=== PATIENT | female | born 1990 | race African-American/Black ===

== ENCOUNTER 2017-09-03 20:56 | Emergency (ER) | payer OTHER, SELFPAY ==
[2017-09-03 21:45] LABS: Urine Blood NEGATIVE (NEG); Urine Glucose NEGATIVE (NEG); Urine Protein TRACE (NEG); Urine pH 6.5 (5.0-7.0)
[2017-09-03] MEDS ORDERED: PROMETHAZINE 25 MG/ML VIAL ONE (21:59)
[2017-09-03] MEDS ORDERED: NA CHLORIDE 0.9% 1,000 ML ONE (21:59)
[2017-09-03 22:06] LABS: Absolute Lymphocytes (CBC) 2.9 K/uL (0.7-4.9); Absolute Monocytes 0.9 K/uL (0.1-1.3); Absolute Neutrophil 5.7 K/uL (1.8-8.0); Basophils % 0.8 % (0-1.3); Hematocrit 37.4 % (36.0-45.0); Lymphocytes % 29.4 % (15.3-44.8); MCH 30.3 pg (27.0-35.0); MCV 88.5 fL (80-100); MPV 8.1 fL (7.6-11.3); RBC Red Blood Cell Count 4.23 M/uL (3.86-4.86)
[2017-09-03 22:11] LABS: Urine Bacteria <20 /HPF (<20); Urine Culture Reflex Order NOT NEEDED; Urine Mucus 2+ /HPF (NONE SEEN); Urine RBC <5 /HPF (NONE SEEN)
[2017-09-03 22:26] LABS: ALT/SGPT 31 U/L (12-78); AST/SGOT 23 U/L (15-37); Albumin 3.7 g/dL (3.4-5.0); Alkaline Phosphatase 50 U/L (45-117); BUN Blood Urea Nitrogen 6 mg/dL (7-18); Bicarbonate 26 mmol/L (21-32); Bilirubin Direct 0.2 mg/dL (0-0.2); Bilirubin Total 0.7 mg/dL (0.2-1.0); Glucose Level 79 mg/dL (74-106); Potassium 4.1 mmol/L (3.5-5.1); Protein, Total 7.5 g/dL (6.4-8.2); Sodium Level 138 mmol/L (136-145)
--- NOTE | 2017-09-03 23:34 | EDPHYS ---
Physician Documentation [facility] Name: Domonique Ramos Age: 26 yrs Sex: Female : 1990 Arrival Date: 09/03/2017 Time: 21:04 Bed 24 Private MD: ED Physician Gianni Macedo HPI: 09/03 22:00 This 26 yrs old Black Female presents to ER via Ambulatory with complaints of Nausea, pm1 Vomiting. 22:00 The patient presents to the emergency department with nausea, vomiting. Onset: The pm1 symptoms/episode began/occurred 2 day(s) ago. Possible causes: . The symptoms are aggravated by food , The symptoms are alleviated by nothing. Associated signs and symptoms: Pertinent positives: nausea, vomiting, Pertinent negatives: abdominal pain, constipation, diarrhea, dysuria, fever, vaginal discharge, Vaginal bleeding, pelvic pain. Severity of symptoms: in the emergency department the symptoms are unchanged. The patient has not experienced similar symptoms in the past. The patient has not recently seen a physician. Historical: - Allergies: 21:22 No Known Allergies; tl2 - Home Meds: 21:22 Imitrex Oral [Active]; labetalol 100 mg Oral tab 1 tab 2 times per day [Active]; tl2 - PMHx: 21:22 Migraines; Hypertension; tl2 - Immunization history:: Adult Immunizations up to date. - Social history:: Smoking status: Patient/guardian denies using tobacco. - Ebola Screening: : No symptoms or risks identified at this time. ROS: 22:00 Constitutional: Negative for fever, chills, and weight loss, Eyes: Negative for injury, pm1 pain, redness, and discharge, ENT: Negative for injury, pain, and discharge, Neck: Negative for injury, pain, and swelling, Cardiovascular: Negative for chest pain, palpitations, and edema, Respiratory: Negative for shortness of breath, cough, wheezing, and pleuritic chest pain. 22:00 Back: Negative for injury and pain. 22:00 MS/Extremity: Negative for injury and deformity, Skin: Negative for injury, rash, and discoloration. 22:00 Neuro: Negative for headache, weakness, numbness, tingling, and seizure. 22:00 Abdomen/GI: Positive for nausea and vomiting, Negative for abdominal pain, diarrhea. 22:00 : Negative for urinary symptoms, vaginal bleeding, vaginal discharge. Exam: 22:00 Constitutional: This is a well developed, well nourished patient who is awake, alert, pm1 and in no acute distress. Head/Face: Normocephalic, atraumatic. Eyes: Pupils equal round and reactive to light, extra-ocular motions intact. Lids and lashes normal. Conjunctiva and sclera are non-icteric and not injected. Cornea within normal limits. Periorbital areas with no swelling, redness, or edema. ENT: Nares patent. No nasal discharge, no septal abnormalities noted. Tympanic membranes are normal and external auditory canals are clear. Oropharynx with no redness, swelling, or masses, exudates, or evidence of obstruction, uvula midline. Mucous membranes moist. Neck: Trachea midline, no thyromegaly or masses palpated, and no cervical lymphadenopathy. Supple, full range of motion without nuchal rigidity, or vertebral point tenderness. No Meningismus. Chest/axilla: Normal chest wall appearance and motion. Nontender with no deformity. No lesions are appreciated. Cardiovascular: Regular rate and rhythm with a normal S1 and S2. No gallops, murmurs, or rubs. Normal PMI, no JVD. No pulse deficits. Respiratory: Lungs have equal breath sounds bilaterally, clear to auscultation and percussion. No rales, rhonchi or wheezes noted. No increased work of breathing, no retractions or nasal flaring. Abdomen/GI: Soft, non-tender, with normal bowel sounds. No distension or tympany. No guarding or rebound. No evidence of tenderness throughout. Back: No spinal tenderness. No costovertebral tenderness. Full range of motion. Skin: Warm, dry with normal turgor. Normal color with no rashes, no lesions, and no evidence of cellulitis. MS/ Extremity: Pulses equal, no cyanosis. Neurovascular intact. Full, normal range of motion. 22:00 Neuro: Orientation: is normal, Motor: is normal, moves all fours. Vital Signs: 21:22 BP 147 / 117; Pulse 80; Resp 18; Temp 98.7(O); Pulse Ox 100% on R/A; Weight 85.73 kg; tl2 Height 5 ft. 8 in. (172.72 cm); Pain 7/10; 22:09 BP 137 / 95; Pulse 66; Resp 18; Pulse Ox 100% ; tl3 23:27 BP 135 / 91; Pulse 80; Resp 18; Pulse Ox 98% ; tl3 21:22 Body Mass Index 28.74 (85.73 kg, 172.72 cm) tl2 MDM: 21:25 Patient medically screened. pm1 23:15 Data reviewed: vital signs. Data interpreted: Pulse oximetry: on room air is 100 %. pm1 Interpretation: normal. 23:32 Counseling: I had a detailed discussion with the patient and/or guardian regarding: the pm1 historical points, exam findings, and any diagnostic results supporting the discharge/admit diagnosis, lab results, the need for outpatient follow up, to return to the emergency department if symptoms worsen or persist or if there are any questions or concerns that arise at home. 09/03 21:32 Order name: Urine Dipstick--Ancillary (enter results); Complete Time: 22:28 [facility] 09/03 21:32 Order name: Urine --Ancillary (enter results); Complete Time: 22:28 [facility] 09/03 21:47 Order name: Basic Metabolic Panel; Complete Time: 22:28 pm1 09/03 21:47 Order name: CBC with Diff; Complete Time: 22:28 pm1 09/03 21:47 Order name: Hepatic Function; Complete Time: 22:28 pm1 09/03 21:47 Order name: Urine Microscopic Only; Complete Time: 22:28 pm1 09/03 21:47 Order name: IV Saline Lock; Complete Time: 21:53 pm1 09/03 21:47 Order name: Labs collected and sent; Complete Time: 21:53 pm1 09/03 21:47 Order name: FHT's; Complete Time: 22:08 pm1 09/03 23:16 Order name: PO challenge pm1 Administered Medications: 22:02 Drug: Phenergan 12.5 mg Route: IVP; Infused Over: 5 mins; Site: right antecubital; tl3 23:08 Follow up: Response: No adverse reaction tl3 22:03 Drug: NS 0.9% 1000 ml Route: IV; Rate: 1000 ml; Site: right antecubital; Delivery: tl3 Primary tubing; 23:08 Follow up: IV Status: Completed infusion; IV Intake: 1000ml tl3 Disposition: 07/22 02:15 Co-signature as Attending Physician, Gianni Macedo MD. pkl Disposition: 09/03/17 23:33 Discharged to Home. Impression: Vomiting of , unspecified. - Condition is Stable. - Discharge Instructions: Morning Sickness. - Prescriptions for Phenergan 25 mg Rectal Suppository - insert 1 suppository by RECTAL route every 6 hours As needed; 12 suppository. promethazine 25 mg Oral Tablet - take 1 tablet by ORAL route every 6 hours As needed; 20 tablet. - Medication Reconciliation Form, Thank You Letter form. - Follow up: Emergency Department; When: As needed; Reason: Worsening of condition. Follow up: Faizan Parisi MD; When: 2 - 3 days; Reason: Recheck today's complaints, Continuance of care, Re-evaluation by your physician. - Problem is new. - Symptoms have improved. Signatures: Dispatcher [employer] EDMS Gianni Macedo MD MD pkl Jude Rg, SEISMOGRAPH COMPUTER SEISMOGRAPH COMPUTER pm1 Maren Wellington, RN RN tl2 Bonnie Kimble RN RN tl3 Sumeet Pizarro RN RN mg2 Corrections: (The following items were deleted from the chart) 09/03 23:50 23:33 09/03/2017 23:33 Discharged to Home. Impression: Vomiting of , mg2 unspecified. Condition is Stable. Forms are Medication Reconciliation Form, Thank You Letter, Antibiotic Education, Prescription Opioid Use. Follow up: Emergency Department; When: As needed; Reason: Worsening of condition. Follow up: Faizan Parisi; When: 2 - 3 days; Reason: Recheck today's complaints, Continuance of care, Re-evaluation by your physician. Problem is new. Symptoms have improved. pm1
--- NOTE | 2017-09-03 23:34 | ER ---
Nurse's Notes [facility] Name: Domonique Ramos Age: 26 yrs Sex: Female : 1990 Arrival Date: 09/03/2017 Time: 21:04 Bed 24 Private MD: Diagnosis: Vomiting of , unspecified Presentation: 09/03 21:20 Presenting complaint: Patient states: I'm 10 weeks and I've been feeling tl2 nauseous and haven't been able to keep anything down. I also have migraines and have had a headache for 3 days that won't go away. Transition of care: patient was not received from another setting of care. Onset of symptoms was August 31, 2017. Risk Assessment: Do you want to hurt yourself or someone else? Patient reports no desire to harm self or others. Initial Sepsis Screen: Does the patient meet any 2 criteria? No. Patient's initial sepsis screen is negative. Does the patient have a suspected source of infection? No. Patient's initial sepsis screen is negative. Care prior to arrival: None. 21:20 Method Of Arrival: Ambulatory tl2 21:20 Acuity: JERI 3 tl2 Triage Assessment: 21:22 General: Appears in no apparent distress. Behavior is calm, cooperative, appropriate tl2 for age. Pain: Complains of pain in headache Pain currently is 7 out of 10 on a pain scale. Neuro: Level of Consciousness is awake, alert, obeys commands, Oriented to person, place, time, situation. Cardiovascular: Denies chest pain. Respiratory: Airway is patent Respiratory effort is even, unlabored, Respiratory pattern is regular, symmetrical. GI: Reports intolerance of fluids, intolerance of food, nausea. : No signs and/or symptoms were reported regarding the genitourinary system. Historical: - Allergies: 21:22 No Known Allergies; tl2 - Home Meds: 21:22 Imitrex Oral [Active]; labetalol 100 mg Oral tab 1 tab 2 times per day [Active]; tl2 - PMHx: 21:22 Migraines; Hypertension; tl2 - Immunization history:: Adult Immunizations up to date. - Social history:: Smoking status: Patient/guardian denies using tobacco. - Ebola Screening: : No symptoms or risks identified at this time. Screenin:22 Abuse screen: Denies threats or abuse. Denies injuries from another. Nutritional mg2 screening: No deficits noted. Tuberculosis screening: No symptoms or risk factors identified. Fall Risk None identified. Assessment: 21:22 Reassessment:. General: Appears in no apparent distress. comfortable, Behavior is calm, mg2 cooperative. Pain: Denies pain. Neuro: Level of Consciousness is awake, alert, obeys commands, Oriented to person, place, time, situation. Cardiovascular: Capillary refill < 3 seconds Patient's skin is warm and dry. Respiratory: Airway is patent Respiratory effort is even, unlabored, Respiratory pattern is regular, symmetrical. GI: Abdomen is 10 weeks Reports vomiting. : No signs and/or symptoms were reported regarding the genitourinary system. EENT: No signs and/or symptoms were reported regarding the EENT system. Derm: Skin is intact, Skin is pink, warm \T\ dry. normal. Musculoskeletal: No signs and/or symptoms reported regarding the musculoskeletal system. 22:09 Reassessment: Patient appears in no apparent distress at this time. No changes from tl3 previously documented assessment. Patient and/or family updated on plan of care and expected duration. Pain level reassessed. Patient is alert, oriented x 3, equal unlabored respirations, skin warm/dry/pink. unable to obtain FHT's, only able to hear mothers heart beat. 23:27 Reassessment: Patient appears in no apparent distress at this time. No changes from tl3 previously documented assessment. Patient and/or family updated on plan of care and expected duration. Pain level reassessed. Patient is alert, oriented x 3, equal unlabored respirations, skin warm/dry/pink. Vital Signs: 21:22 BP 147 / 117; Pulse 80; Resp 18; Temp 98.7(O); Pulse Ox 100% on R/A; Weight 85.73 kg; tl2 Height 5 ft. 8 in. (172.72 cm); Pain 7/10; 22:09 BP 137 / 95; Pulse 66; Resp 18; Pulse Ox 100% ; tl3 23:27 BP 135 / 91; Pulse 80; Resp 18; Pulse Ox 98% ; tl3 21:22 Body Mass Index 28.74 (85.73 kg, 172.72 cm) tl2 ED Course: 21:04 Patient arrived in ED. es 21:22 Triage completed. tl2 21:22 Patient has correct armband on for positive identification. Door closed. Warm blanket mg2 given. 21:22 Arm band placed on right wrist. tl2 21:25 Jude Rg NP is PHCP. pm1 21:25 Gianni Macedo MD is Attending Physician. pm1 21:31 Bonnie Kimble, CRISTAL is Primary Nurse. tl3 21:55 Inserted saline lock: 20 gauge in right antecubital area, using aseptic technique. mg2 Blood collected. 22:25 No provider procedures requiring assistance completed. bedside ultra sound used to tl3 obtain heart rate of approx. 123 beats per minute. 23:33 Faizan Parisi MD is Referral Physician. pm1 23:49 IV discontinued, intact, bleeding controlled, No redness/swelling at site. Pressure mg2 dressing applied. Administered Medications: 22:02 Drug: Phenergan 12.5 mg Route: IVP; Infused Over: 5 mins; Site: right antecubital; tl3 23:08 Follow up: Response: No adverse reaction tl3 22:03 Drug: NS 0.9% 1000 ml Route: IV; Rate: 1000 ml; Site: right antecubital; Delivery: tl3 Primary tubing; 23:08 Follow up: IV Status: Completed infusion; IV Intake: 1000ml tl3 Intake: 23:08 IV: 1000ml; Total: 1000ml. tl3 Outcome: 23:33 Discharge ordered by . pm1 23:50 Discharged to home ambulatory, with family. mg2 23:50 Condition: stable 23:50 Discharge instructions given to patient, family, Instructed on discharge instructions, follow up and referral plans. Demonstrated understanding of instructions, follow-up care, medications, Prescriptions given X 2. 23:50 Patient left the ED. mg2 Signatures: Jacklyn Mcginnis Patrick, NP HEALTH PROMOTION COORDINATOR pm1 Maren Wellington RN RN tl2 Bonnie Kimble, CRISTAL RN tl3 Sumeet Pizarro RN RN mg2
== END 2017-09-03 23:50 | disposition home or self-care (01) ==
LOC: ER 20:56
DX: O21.8 Other vomiting complicating pregnancy (principal); Z3A.10 10 weeks gestation of pregnancy
CPT/HCPCS: 36415; 80048; 80076; 81003; 81015; 81025; 85025; 96361; 96374; 99284; J2550; J7030

== ENCOUNTER 2017-12-05 16:51 | Emergency (ER) | payer SELFPAY ==
--- OUTSIDE RECORDS SUMMARY | 2017-12-05 16:53 | XMS REPORT | Summary of Care ---
:[address] [facility] Address [address] [place] [address]- Encounter HQ eRid(ARUNA) [id number] Date(s): 03/04/17 - 03/04/17 [facility] [address] [place] [address]- [phone] Discharge Disposition: Home or Self Care Attending Physician: Boyd Tellez MD Vital Signs Most recent to oldest [Reference Range]: 1 Height 152.4 cm (03/04/17 9:32 AM) Temperature Oral [96.4-99.1 DegF] 98.2 DegF (03/04/17 9:32 AM) Blood Pressure [90-140/60-90 mmHg] 125/89 mmHg (03/04/17 9:32 AM) Respiratory Rate [14-20 BRMIN] 18 BRMIN (03/04/17 9:32 AM) Peripheral Pulse Rate [60-100 bpm] 90 bpm (03/04/17 9:32 AM) Weight 86.545 kg (03/04/17 9:32 AM) Body Mass Index 37.26 m2 (03/04/17 9:32 AM) Problem List Condition Effective Dates Status Health Status Informant Hypertension(Confirmed) Resolved Migraine headache(Confirmed) Resolved Morbid obesity(Confirmed) Active Allergies, Adverse Reactions, Alerts Substance Reaction Severity Status NKDA Active Medications hydrochlorothiazide-lisinopril 25 mg-20 mg oral tablet 1 tab, PO, Daily, # 30 tab, 5 Refill(s), Pharmacy: [facility]/pharmacy #[id number] Start Date: 03/04/17 Stop Date: 03/04/17 Status: DiscontinuedTamiFLU 75 mg oral capsule 75 mg, PO, Q12H, # 10 cap, 0 Refill(s) Start Date: 03/04/17 Stop Date: 03/09/17 Status: Ordered Results No data available for this section Immunizations No data available for this section Procedures No data available for this section Social History Social History Type Response Smoking Status Never smoker; Exposure to Tobacco Smoke None; Cigarette Smoking Last 365 Days No; Reg Smoking Cessation Counseling No entered on: 03/04/17 Assessment and Plan No data available for this section
--- OUTSIDE RECORDS SUMMARY | 2017-12-05 16:53 | XMS REPORT | Summary of Care ---
:1990 Author Organization [facility] Address [address] [place] [address]- Encounter HQ Donnell_cindy(FIN) [id number] Date(s): 03/04/17 - 03/05/17 [facility] [address] [place] [address]- [phone] Vital Signs No data available for this section Problem List Condition Effective Dates Status Health Status Informant Hypertension(Confirmed) Resolved Migraine headache(Confirmed) Resolved Morbid obesity(Confirmed) Active Allergies, Adverse Reactions, Alerts Substance Reaction Severity Status NKDA Active Medications hydrochlorothiazide-lisinopril 25 mg-20 mg oral tablet 1 tab, PO, Daily, # 90 tab, 1 Refill(s), Pharmacy: [facility] Start Date: 03/04/17 Status: Ordered Results No data available for [...]
--- OUTSIDE RECORDS SUMMARY | 2017-12-05 16:53 | XMS REPORT | Continuity of Care Document ---
:1990 Author Organization Interface Problems Problem Status Onset Classification Date Comments Source Date Reported Hypertension Resolved Problem 06/30/2017 [facility] Group Migraine Resolved Problem 06/30/2017 Medical headache Group Morbid obesity Active Problem 06/30/2017 [facility] Pre-existing Active Problem 11/30/2017 [facility] complicating , first trimester Hyperemesis Active Problem 11/30/2017 [facility] gravidarum with Womens metabolic Health disturbance Supervision of Active Problem 11/30/2017 [facility] other high risk Womens pregnancies, Health first trimester Pre-existing Active Problem 11/30/2017 [facility] Health complicating , second trimester Medications Medication Details Route Status Patient Ordering Order Source Instructions Provider Date Metoclopramide HCl as Orally Active 10 mg Orally [facility] 09/27[facility] directed every six to 2018 for eight hours Womens Health Labetalol HCl 1 tablet Orally Active 100 mg Orally [facility] 09/26[facility] Twice a day 2018 for Womens Health Ondansetron 1 tablet Orally Active 4 mg Orally [facility] 09/19[facility] on the every 6 hrs 2018 for tongue and prn Womens allow to Health dissolve Doxylamine-Pyridoxine 2 tablets Orally Active 10-10 MG [facility] 09/15[facility] at bedtime Orally Once a 2018 for on an day Womens empty Health stomach SUMAtriptan 50 mg 50 mg=1 Active oral tablet tab, PO, 2018 Medical ONCE, may Group repeat dose in 2 hours if needed, # 9 tab, 1 Refill(s), Pharmacy: [facility][id number] Hydrochlorothiazide 1 tab, PO, Active 25 MG / Lisinopril 20 Daily, # 2018 Medical MG Oral Tablet 90 tab, 1 Group Refill(s), [facility] Hydrochlorothiazide 1 tab, PO, Inactive 25 MG / Lisinopril 20 Daily, # 2017 Medical MG Oral Tablet 30 tab, 5 Group Refill(s), Pharmacy: [facility] #[id number] Oseltamivir 75 MG 75 mg, PO, Active Oral Capsule Q12H, # 10 2017 Medical [Tamiflu] cap, 0 Group Refill(s) Allergies, Adverse Reactions, Alerts Substance Category Reaction Severity Reaction Status Date Comments Source type Reported Immunizations Immunization Date Given Site Status Last Updated Comments Source Results Order Results Value Reference Date Interpretation Comments Source Name Range Vital Signs Vital Sign Value Date Comments Source Respitory Rate 18 03/04/2017 [facility] Temperature Oral (F) 98.2 F 03/04/2017 [facility] Height 152.4 cm 03/04/2017 [facility] Systolic (mm Hg) 125 03/04/2017 [facility] Group Diastolic (mm Hg) 89 03/04/2017 [facility] Heart Rate 90 03/04/2017 [facility] Group BMI Calculated 37.26 03/04/2017 [facility] Weight 86.545 03/04/2017 [facility] Group Encounters Location Location Encounter Encounter Reason Attending ADM DC Status Source Details Type Number For Provider Date Date Visit Outpatient [id number] APPLEECIA 08/11 [facility] [place] Outpatient [id number] APPLEECIA 09/08 [facility] [place] Outpatient [id number] BOYD 11/11 [facility] [place] Outpatient [id number] APPLEECIA 03/04 [facility] Outpatient [id number] Boyd 03/04 03/05 Primary Tellez /2017 [facility] Phone [id number] 03/04 03/06 Primary Message /2017 [facility] [place] [facility] Phone [phone] 03/23 03/25 Primary Message /2017 [facility] [place] Procedures Procedure Code Date Perfomer Comments Source
--- OUTSIDE RECORDS SUMMARY | 2017-12-05 16:53 | XMS REPORT | Summary of Care ---
:1990 Author Organization [facility] Address [address] [place] [address]- Encounter HQ Donnell_cindy(FIN) [id number] Date(s): 03/23/17 - 03/24/17 [facility] [address] [place] [address]- [phone] Vital Signs No data available for this section Problem List Condition Effective Dates Status Health Status Informant Hypertension(Confirmed) Resolved Migraine headache(Confirmed) Resolved Morbid obesity(Confirmed) Active Allergies, Adverse Reactions, Alerts Substance Reaction Severity Status NKDA Active Medications SUMAtriptan 50 mg oral tablet 50 mg=1 tab, PO, ONCE, may repeat dose in 2 hours if needed, # 9 tab, 1 Refill(s ), Pharmacy: [facility]/pharmacy #[id number] Start Date: 03/23/17 Status: Ordered Results No data available for [...]
--- OUTSIDE RECORDS SUMMARY | 2017-12-05 16:54 | XMS REPORT ---
:1990 Author Organization [employer] Care Team Providers Name Role Phone Sophia Vaughan Provider Role Unavailable Allergies No Known Allergies Problems Problem Type Condition Code Onset Dates Condition Status Problem Pre-existing essential hypertension O10.011 Active complicating , first trimester Problem Hyperemesis gravidarum with O21.1 Active metabolic disturbance Problem Supervision of other high risk O09.891 Active pregnancies, first trimester Medications Medication Code Code Instructions Start End Date Status Dosage System Date Labetalol HCl [facility] [id number] 100 mg Orally Sep 26, Active 1 tablet Twice a day 2017 Results No Known Results Summary Purpose [employer] Submission
--- OUTSIDE RECORDS SUMMARY | 2017-12-05 16:54 | XMS REPORT ---
:1990 Author Organization [employer] Care Team Providers Name Role Phone Sophia Vaughan Provider Role Unavailable Allergies No Known Allergies Problems Problem Type Condition Code Onset Dates Condition Status Problem Hyperemesis gravidarum with O21.1 Active metabolic disturbance Problem Supervision of other high risk O09.891 Active pregnancies, first trimester Problem Pre-existing essential hypertension O10.012 Active complicating , second trimester Problem Pre-existing essential hypertension O10.011 Active complicating , first trimester Medications No Known Medications Results No Known Results Summary Purpose [employer] Submission
--- OUTSIDE RECORDS SUMMARY | 2017-12-05 16:54 | XMS REPORT ---
[...] Medications Medication Code Code Instructions Start End Status Dosage System Date Date Metoclopramide [facility] [id number] 10 mg Orally Sep 27, Active as HCl every six to 2018 directed eight hours Results No Known Results Summary Purpose [employer] Submission
--- OUTSIDE RECORDS SUMMARY | 2017-12-05 16:54 | XMS REPORT ---
:1990 Author Organization [employer] Care Team Providers Name Role Phone Sophia Vaughan Provider Role Unavailable Allergies No Known Allergies Problems No Known Problems Medications No Known Medications Results No Known Results Summary Purpose [employer] Submission
--- OUTSIDE RECORDS SUMMARY | 2017-12-05 16:54 | XMS REPORT ---
:1990 Author Organization [employer] Care Team Providers Name Role Phone Sophia Vaughan Provider Role Unavailable Allergies No Known Allergies Problems No Known Problems Medications Medication Code System Code Instructions Start End Date Status Dosage Date Doxylamine-Pyri [facility] 58486-79 10-10 MG Orally Sep 15, Active 2 tablets doxine 00-10 Once a day 2017 at bedtime on an empty stomach Results No Known Results Summary Purpose [employer] Submission
--- OUTSIDE RECORDS SUMMARY | 2017-12-05 16:54 | XMS REPORT ---
:1990 Author Organization [employer] Care Team Providers Name Role Phone Sophia Vaughan Provider Role Unavailable Allergies No Known Allergies Problems No Known Problems Medications Medication Code Code Instructions Start End Date Status Dosage System Date Ondansetron [facility] [id number] 4 mg Orally Sep 19, Active 1 tablet on every 6 hrs prn 2018 the tongue and allow to dissolve Results No Known Results Summary Purpose [employer]Works Submission
[2017-12-05] MEDS ORDERED: NA CHLORIDE 0.9% 1,000 ML ONE (18:18)
[2017-12-05 18:26] LABS: Absolute Lymphocytes (CBC) 1.9 K/uL (0.7-4.9); Absolute Monocytes 0.7 K/uL (0.1-1.3); Absolute Neutrophil 6.6 K/uL (1.8-8.0); Basophils % 0.5 % (0-1.3); Eosinophils % 2.2 % (0-4.4); Hematocrit 34.5 % (36.0-45.0); Lymphocytes % 20.2 % (15.3-44.8); MCH 30.6 pg (27.0-35.0); MPV 8.3 fL (7.6-11.3); Monocytes % 7.5 % (3.3-12.3); RBC Red Blood Cell Count 3.87 M/uL (3.86-4.86)
[2017-12-05] MEDS ORDERED: ONDANSETRON 4 MG/2 ML VIAL ONE (18:28)
[2017-12-05 18:39] LABS: BUN Blood Urea Nitrogen 5 mg/dL (7-18); Bicarbonate 25 mmol/L (21-32); Glucose Level 88 mg/dL (74-106); Potassium 3.6 mmol/L (3.5-5.1); Sodium Level 139 mmol/L (136-145)
[2017-12-05 19:00] LABS: Urine Blood NEGATIVE (NEG); Urine Glucose NEGATIVE (NEG); Urine Protein NEGATIVE (NEG); Urine Specific Gravity 1.025 (1.005-1.030)
[2017-12-05 20:33] LABS: Urine Bacteria NONE SEEN /HPF (<20); Urine RBC NONE SEEN /HPF (NONE SEEN)
[2017-12-05 20:34] LABS: Urine Culture Reflex Order NOT NEEDED
--- NOTE | 2017-12-05 21:05 | EDPHYS ---
Physician Documentation [facility] Name: Domonique Ramos Age: 27 yrs Sex: Female : 1990 Arrival Date: 12/05/2017 Time: 16:52 Bed 30 Private MD: None, None ED Physician Aayush Griffin HPI: 12/05 21:00 This 27 yrs old Black Female presents to ER via Ambulatory with complaints of Vomiting. pm1 21:00 The patient presents to the emergency department with nausea, vomiting, 4 times since pm1 the onset of symptoms. Onset: The symptoms/episode began/occurred today. Possible causes: . The symptoms are aggravated by nothing. The symptoms are alleviated by nothing. diclegis not working. Associated signs and symptoms: Pertinent negatives: abdominal pain, diarrhea, dysuria, fever. Severity of symptoms: in the emergency department the symptoms are unchanged. The patient has experienced similar episodes in the past, chronically. 21:00 Patient is 20 weeks . 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 - Social history:: Smoking status: Patient/guardian denies using tobacco. - Ebola Screening: : No symptoms or risks identified at this time. ROS: 21:00 Constitutional: Negative for fever, chills, and weight loss, Eyes: Negative for injury, pm1 pain, redness, and discharge, ENT: Negative for injury, pain, and discharge, Neck: Negative for injury, pain, and swelling, Cardiovascular: Negative for chest pain, palpitations, and edema, Respiratory: Negative for shortness of breath, cough, wheezing, and pleuritic chest pain. 21:00 Back: Negative for injury and pain, : Negative for injury, bleeding, discharge, and swelling, MS/Extremity: Negative for injury and deformity, Skin: Negative for injury, rash, and discoloration, Neuro: Negative for headache, weakness, numbness, tingling, and seizure. 21:00 Abdomen/GI: Positive for nausea and vomiting, Negative for abdominal pain, diarrhea. Exam: 21:00 Constitutional: This is a well developed, well nourished patient who is awake, alert, pm1 and in no acute distress. Head/Face: Normocephalic, atraumatic. Eyes: Pupils equal round and reactive to light, extra-ocular motions intact. Lids and lashes normal. Conjunctiva and sclera are non-icteric and not injected. Cornea within normal limits. Periorbital areas with no swelling, redness, or edema. ENT: Nares patent. No nasal discharge, no septal abnormalities noted. Tympanic membranes are normal and external auditory canals are clear. Oropharynx with no redness, swelling, or masses, exudates, or evidence of obstruction, uvula midline. Mucous membranes moist. Neck: Trachea midline, no thyromegaly or masses palpated, and no cervical lymphadenopathy. Supple, full range of motion without nuchal rigidity, or vertebral point tenderness. No Meningismus. Chest/axilla: Normal chest wall appearance and motion. Nontender with no deformity. No lesions are appreciated. Cardiovascular: Regular rate and rhythm with a normal S1 and S2. No gallops, murmurs, or rubs. Normal PMI, no JVD. No pulse deficits. Respiratory: Lungs have equal breath sounds bilaterally, clear to auscultation and percussion. No rales, rhonchi or wheezes noted. No increased work of breathing, no retractions or nasal flaring. Abdomen/GI: Soft, non-tender, with normal bowel sounds. No distension or tympany. No guarding or rebound. No evidence of tenderness throughout. Back: No spinal tenderness. No costovertebral tenderness. Full range of motion. Skin: Warm, dry with normal turgor. Normal color with no rashes, no lesions, and no evidence of cellulitis. MS/ Extremity: Pulses equal, no cyanosis. Neurovascular intact. Full, normal range of motion. 21:00 Neuro: Orientation: is normal, Motor: moves all fours. Vital Signs: 17:12 BP 136 / 90; Pulse 95; Resp 18 S; Temp 98.3(TE); Pulse Ox 100% on R/A; Weight 81.19 kg aa5 (R); Height 5 ft. 0 in. (152.40 cm) (R); Pain 8/10; 18:50 BP 115 / 80; Pulse 87; Resp 18; Pulse Ox 100% ; Pain 0/10; mg2 19:53 BP 124 / 86; Pulse 85; Resp 18; Pulse Ox 100% on R/A; Pain 0/10; mg2 21:02 BP 122 / 76; Pulse 89; Resp 18; Pulse Ox 100% on R/A; mg2 17:12 Body Mass Index 34.96 (81.19 kg, 152.40 cm) aa5 MDM: 17:58 Patient medically screened. lore 21:04 Data reviewed: vital signs. Data interpreted: Pulse oximetry: on room air is 100 %. pm1 Interpretation: normal. Counseling: I had a detailed discussion with the patient and/or guardian regarding: the historical points, exam findings, and any diagnostic results supporting the discharge/admit diagnosis, lab results, the need for outpatient follow up, to return to the emergency department if symptoms worsen or persist or if there are any questions or concerns that arise at home. 12/05 17:55 Order name: Basic Metabolic Panel pm1 12/05 17:55 Order name: CBC with Diff pm1 12/05 17:55 Order name: Urine Microscopic Only pm1 12/05 17:56 Order name: Basic Metabolic Panel; Complete Time: 19:05 EDMS 12/05 17:56 Order name: CBC with Automated Diff; Complete Time: 19:05 EDMS 12/05 17:56 Order name: Urine Microscopic Only; Complete Time: 20:38 EDMS 12/05 17:55 Order name: IV Saline Lock; Complete Time: 18:49 pm1 12/05 17:55 Order name: Labs collected and sent; Complete Time: 18:49 pm1 12/05 17:55 Order name: Urine Dipstick-Ancillary (obtain specimen); Complete Time: 18:49 pm1 12/05 18:51 Order name: Urine Dipstick--Ancillary (enter results); Complete Time: 19:05 bd 12/05 18:51 Order name: Urine --Ancillary (enter results); Complete Time: 19:05 bd Administered Medications: 18:49 Drug: NS 0.9% 1000 ml Route: IV; Rate: 1000 ml; Site: right antecubital; mg2 19:53 Follow up: Response: No adverse reaction; IV Status: Completed infusion mg2 18:50 Drug: Zofran 4 mg Route: IVP; Site: right antecubital; mg2 19:52 Follow up: Response: No adverse reaction; Marked relief of symptoms mg2 Disposition: 12/06 06:23 Co-signature as Attending Physician, Aayush Griffin MD I agree with the assessment and lore plan of care. Disposition: 12/05/17 21:04 Discharged to Home. Impression: Vomiting of , unspecified. - Condition is Stable. - Discharge Instructions: Hyperemesis Gravidarum. - Prescriptions for Zofran ODT 4 mg Oral tablet,disintegrating - place 1 tablet by TRANSLINGUAL route every 8 hours As needed; 20 tablet. - Medication Reconciliation Form, Thank You Letter form. - Follow up: Emergency Department; When: As needed; Reason: Worsening of condition. Follow up: Private Physician; When: 2 - 3 days; Reason: Recheck today's complaints, Continuance of care, Re-evaluation by your physician. Signatures: Dispatcher [employer] EDSD Aayush Griffin MD MD cha Calderon, Audri, RN RN aa5 Jude Rg NP BIOLOGY PROFESSOR pm1 Sumeet Pizarro RN RN mg2 Corrections: (The following items were deleted from the chart) 12/05 21:20 21:04 12/05/2017 21:04 Discharged to Home. Impression: Vomiting of , mg2 unspecified. Condition is Stable. Forms are Medication Reconciliation Form, Thank You Letter, Antibiotic Education, Prescription Opioid Use. Follow up: Emergency Department; When: As needed; Reason: Worsening of condition. Follow up: Private Physician; When: 2 - 3 days; Reason: Recheck today's complaints, Continuance of care, Re-evaluation by your physician. pm1
--- NOTE | 2017-12-05 21:05 | ER ---
Nurse's Notes [facility] Name: Domonique Ramos Age: 27 yrs Sex: Female : 1990 Arrival Date: 12/05/2017 Time: 16:52 Bed 30 Private MD: None, None Diagnosis: Vomiting of , unspecified Presentation: 12/05 17:08 Presenting complaint: Patient states: "I've vomited about 4 times today and it's just aa5 one of those days where I can't keep anything down". Pt reports being 20 weeks . Pt reports REYES. Transition of care: patient was not received from another setting of care. Onset of symptoms was December 05, 2017. Risk Assessment: Do you want to hurt yourself or someone else? Patient reports no desire to harm self or others. Initial Sepsis Screen: Does the patient meet any 2 criteria? No. Patient's initial sepsis screen is negative. Does the patient have a suspected source of infection? No. Patient's initial sepsis screen is negative. Care prior to arrival: None. 17:08 Method Of Arrival: Ambulatory aa5 17:08 Acuity: JERI 3 aa5 INSPECTOR PLATING: 17:12 3, Full Term 2, Premature 0, 0, Living 2, LMP 06/28/2017 aa5 Historical: - Allergies: 17:12 No Known Allergies; aa5 - Home Meds: 17:22 Imitrex Oral [Active]; labetalol 100 mg Oral tab 1 tab 2 times per day [Active]; mg2 - PMHx: 17:12 Hypertension; Migraines; aa5 - PSHx: 17:12 None; aa5 - Immunization history:: Adult Immunizations up to date. - Social history:: Smoking status: Patient/guardian denies using tobacco. - Ebola Screening: : No symptoms or risks identified at this time. Screenin:19 Abuse screen: Denies threats or abuse. Denies injuries from another. Nutritional mg2 screening: No deficits noted. Tuberculosis screening: No symptoms or risk factors identified. Fall Risk None identified. Assessment: 17:19 General: Appears in no apparent distress. comfortable, Behavior is calm, cooperative. mg2 Pain: Denies pain. Neuro: Level of Consciousness is awake, alert, obeys commands, Oriented to person, place, time, situation. Neuro: Reports lightheadedness. Cardiovascular: Capillary refill < 3 seconds Patient's skin is warm and dry. Respiratory: Airway is patent Respiratory effort is even, unlabored, Respiratory pattern is regular, symmetrical. GI: Reports vomiting, since morming. EENT: No signs and/or symptoms were reported regarding the EENT system. Derm: Skin is intact, is healthy with good turgor, Skin is pink, warm \\T\\ dry. normal. Musculoskeletal: No signs and/or symptoms reported regarding the musculoskeletal system. 18:53 Reassessment: Patient appears in no apparent distress at this time. Patient and/or mg2 family updated on plan of care and expected duration. Pain level reassessed. Patient is alert, oriented x 3, equal unlabored respirations, skin warm/dry/pink. Vital Signs: 17:12 BP 136 / 90; Pulse 95; Resp 18 S; Temp 98.3(TE); Pulse Ox 100% on R/A; Weight 81.19 kg aa5 (R); Height 5 ft. 0 in. (152.40 cm) (R); Pain 8/10; 18:50 BP 115 / 80; Pulse 87; Resp 18; Pulse Ox 100% ; Pain 0/10; mg2 19:53 BP 124 / 86; Pulse 85; Resp 18; Pulse Ox 100% on R/A; Pain 0/10; mg2 21:02 BP 122 / 76; Pulse 89; Resp 18; Pulse Ox 100% on R/A; mg2 17:12 Body Mass Index 34.96 (81.19 kg, 152.40 cm) aa5 ED Course: 16:52 Patient arrived in ED. mr 16:52 None, None is Private Physician. mr 17:08 Arm band placed on. aa5 17:11 Triage completed. aa5 17:17 Sumeet Pizarro, CRISTAL is Primary Nurse. mg2 17:19 No provider procedures requiring assistance completed. mg2 17:21 Patient has correct armband on for positive identification. Placed in gown. Call light mg2 in reach. Pulse ox on. NIBP on. 17:52 Jude Rg NP is PHCP. pm1 17:52 Aayush Griffin MD is Attending Physician. pm1 18:50 Inserted saline lock: 20 gauge in right antecubital area, using aseptic technique. mg2 Blood collected. 21:20 IV discontinued, intact, bleeding controlled, No redness/swelling at site. Pressure mg2 dressing applied. Administered Medications: 18:49 Drug: NS 0.9% 1000 ml Route: IV; Rate: 1000 ml; Site: right antecubital; mg2 19:53 Follow up: Response: No adverse reaction; IV Status: Completed infusion mg2 18:50 Drug: Zofran 4 mg Route: IVP; Site: right antecubital; mg2 19:52 Follow up: Response: No adverse reaction; Marked relief of symptoms mg2 Outcome: 21:04 Discharge ordered by MD. pm1 21:20 Discharged to home ambulatory. mg2 21:20 Condition: stable 21:20 Discharge instructions given to patient, Instructed on discharge instructions, follow up and referral plans. Demonstrated understanding of instructions, follow-up care, medications, Prescriptions given X 1. 21:20 Patient left the ED. mg2 Signatures: Deepthi Portillo Audri RN RN aa5 Jude Rg NP HOBBING MACHINE OPERATOR pm1 Sumeet Pizarro RN RN mg2
== END 2017-12-05 21:20 | disposition home or self-care (01) ==
LOC: ER 16:51
DX: O21.9 Vomiting of pregnancy, unspecified (principal); Z3A.20 20 weeks gestation of pregnancy; O16.2 Unspecified maternal hypertension, second trimester
CPT/HCPCS: 36415; 80048; 81003; 81015; 81025; 85025; 96361; 96374; 99284; J2405; J7030

== ENCOUNTER 2021-05-13 23:49 | Emergency (ER) | payer BC ==
--- OUTSIDE RECORDS SUMMARY | 2021-05-13 23:53 | XMS REPORT | Continuity of Care Document ---
:[address] [facility] t Address [address] [place] [address] Care Team Providers Name Role Phone PATRICIA Attending Clinician Unavailable VINCE, DR CÁRDENAS Attending Clinician Unavailable JAMES, Attending Clinician Unavailable FATOUMATA, DR ROD Attending Clinician Unavailable PATRICIA Admitting Clinician Unavailable VINCE, DR CÁRDENAS Admitting Clinician Unavailable DR JAMES Admitting Clinician Unavailable FATOUMATA, DR ROD Admitting Clinician Unavailable Payers Payer Name Policy Type Policy Number Effective Date Expiration Date S ource 0453 [id number] 2021 00:00:00 Problems This patient has no known problems. Allergies, Adverse Reactions, Alerts Allergy Allergy Status Severity Reaction(s) Onset Inactive Treating Comm ents Source Name Type Date Date Clinician No Known DA Active [facility] Medications This patient has no known medications. Vital Signs Vital Name Observation Time Observation Value Comments Source Height 2021-04-10 12:04:00 149.86 CM Weight 2021-04-10 12:04:00 87.99 KG Procedures Procedure Date / Time Performed Performing Clinician [facility] e DELIVERY PRODUCTS OF 2021-04-11 00:00:00 [facility] EXT Center INTRO HORMONE FE REPR 2021-04-10 00:00:00 [facility] CRISTINA[facility]ART OPEN Center Encounters Start End Encounter Admission Attending Care Care Encounter Source Date/Time Date/Time Type Type Clinicians Facility Department ID 2018-04-17 Inpatient C PATRICIA [facility] [id number] 21 be 09:30:00 [facility] 2018-04-10 Inpatient C PATRICIA [facility] RAD [id number] [place] 09:30:00 [facility] [place] 2021-01-15 2021-01-15 Outpatient [place]fa CLAR[facility] RAD [id number] [place] 09:30:00 23:59:00 [facility] [place] 2018-04-08 2018-04-11 Outpatient [place] OB [id number] [place] 20:23:00 13:44:00 [facility] [place] 2018-04-04 2018-04-06 Inpatient Monica RAMIREZ [facility] OB [id number] [place] 09:00:00 16:29:00 [facility] [place] 2018-04-03 2018-04-03 Outpatient [place]fa RAMIREZ [facility] OB [id number] [place] 09:50:00 14:47:00 [facility] [place] 2018-03-27 2018-03-27 Outpatient Alfa RAMIREZ [facility] RAD [id number] [place] 10:03:00 11:39:00 [facility] [place] 2018-03-21 2018-03-21 Outpatient [place]fa RAMIREZ [facility] OB [id number] [place] 10:46:00 16:31:00 [facility] [place] 2018-03-20 2018-03-20 Outpatient Alfa RAMIREZ [facility] OB [id number] [place] 10:10:00 12:18:00 [facility] [place] 2018-03-13 2018-03-13 Outpatient [place] [facility] [place] [id number] [place] 10:10:00 11:30:00 [facility] [place] 2018-03-06 2018-03-06 [place]patient [place] [facility] [place] [id number] [place] 09:58:00 17:30:00 [facility] [place] 2018-03-03 2018-03-[place] [id number] [place] 09:55:00 10:35:00 [facility] [place] 2018-02-28 2018-02-28 Outpatient [place] [facility] [place] [id number] [place] 10:39:00 14:59:00 [facility] [place] 2017-12-17 2017-12-17 Inpatient Alfa RAMIREZ [facility] OB [id number] [place] 08:52:00 12:12:00 [facility] Results Test Description Test Time Test Comments Results Result Comments Source ANAEROBIC CULTURE 2021-04-18 12:09:00 Test Item Value Reference Range Interpretation Comme nts Isolate 1 (test code = ISO1) Finegoldia magna BETA LACTAMASE NEGATIVE HERPES IGM *WW*2021-04-17 13:52:00 Test Item Value Reference Range Interpretation Comments HSV 1 IGM NEGATIVE SCREEN (test code = 84836239) HSV 2 IGM NEGATIVE REFERENCE RANGE : NEGATIVEThe IFA SCREEN (test procedure for m cristel IgM code = antibodies to H SV 1and HSV 2 [id number]) detects both ty pe-common and type- specificH SV antibodies. Thus, IgM react ivity to both HSV 1and HSV 2 may represent crossreactive H SV antibodiesrathe r than exposure to both HSV 1 a nd HSV 2.This test was develo ped and its analytical performancechar acteristics have been determined by [employer].It has not been cleared or appr kecia by FDA. This assay hasbeen v alidated pursuant to the CLIA reg ulations and isused for clin ical purposes.TEST P ERFORMED AT:[facility] [id number] [place] [address]M CHEMA GARCIA MD,PHD ,KIMBER RUBELLA IGM ANTIBODY WW2021-04-17 13:14:00 Test Item Value Reference Range Interpretation Comments RUBELLA ANTIBODY <20.00 AU/mL AU/mL (IGM) (test code = Interpret ation ----- [id number]) <20.00 Negative 20.00-24.99 Equivocal > or = 25.00 Posit iveTEST PERFORMED AT:[facility] [id number] [facility] [place] [address]KTHZELACIE KAUR MD WOUND/SKIN/ABS.&GRAMSTAIN [id number] 12:26:00 Test Item Value Reference Range Interpretation Comments Culture Observations NO GROWTH AFTER 3 (test code = COB1) DAYS Direct Exam (test code = RARE WHITE BLOOD DE1) CELLS SEEN Direct Exam (test code = NO ORGANISMS SEEN DE2) Isolate 1 (test code = STREP VIRIDANS ISO1) ANAEROBIC [id number] 12:24:00 Test Item Value Reference Range Interpretation Comments Culture Observations NO ANAEROBES ISOLATED (test code = COB1) AT 5 DAYS. CULTURE HELD FOR 5 DAYS WOUND/SKIN/ABS.&GRAMSTAIN [id number] 09:47:00 Test Item Value Reference Range Interpretation Comments Direct Exam (test code = RARE WHITE BLOOD DE1) CELLS SEEN Direct Exam (test code = NO ORGANISMS SEEN DE2) Isolate 1 (test code = Streptococcus ISO1) gallolyticus ssp pasteurianus benzylpenicillin (test ug/mL S code = tameka) ampicillin (test code = ug/mL S am) cefotaxime 1 (test code ug/mL S = tax) ceftriaxone1 (test code ug/mL S = ctr) levofloxacin (test code ug/mL S = lev) erythromycin (test code ug/mL S = e) clindamycin (test code = ug/mL S cc) linezolid (test code = ug/mL S lnz) vancomycin (test code = ug/mL S va) tetracycline (test code ug/mL R = tet) PARVO B-19 IgG/IgM WW2021-04-15 20:34:00 Test Item Value Reference Range Interpretation Comments Parvovirus B19 5.0 H REFERENCE RAN GE: Antibody, IgG (test <0.9INTE RPRETIVE CRITERIA: code = [id number]) <0.9 N egative 0.9 - 1.1 Equivocal >1.1 PositiveIgG per sists for years and provi nancy life-longimmuni ty. To diagnose curren t infection, considerParvovi tristan B19 DNA, PCR.TEST PERFOR MED AT:[facility] [id number] [address] GARCIA, [place] [address]DUOLAARTI GARCIA MD,PHD ,KIMBER Parvovirus B19 0.2 REFERENCE RAN GE: Antibody, IgM (test <0.9INTE RPRETIVE CRITERIA: code = 95944301) <0.9 N egative 0.9 - 1.1 Equivocal >1.1 PositiveResults from any one IgM assay shoul d not be usedas a sole d eterminant of a current or recentinfection . Because IgM tests can yield falsepositive r esults and low levels of I gM antibodymay per sist for months post inf ection, reliance sun si ngle test result could be misleading. If anacute infe ction is suspected, cons ider obtaininga new specimen and submit for both IgG and IgMtesting in t wo or more weeks. To diagn ose currentinfectio n, consider Parvovirus B19 DNA, PCR.TEST PERFORMED AT:[facility] [id number] [facility] [address]EAROCARTI GARCIA MD,PHD ,KIMBER TOXOPLASMA IGM *WW*2021-04-14 21:37:00 Test Item Value Reference Range Interpretation Comments TOXOPLASMA IGM <8.00 AU/mL AU/mL ANTIBODY (test code Interpre tation = [id number]) ----- <8.00 Negative 8.00-9.99 Equivocal >9.99 Positi veTEST PERFORMED AT:[facility] [id number] [facility] [place] [address]QFEUKLACIE KAUR MD TOXOPLASMA IGG *WW*2021-04-14 21:37:00 Test Item Value Reference Range Interpretation Comments TOXOPLASMA IGG <7.20 IU/mL IU/mL ANTIBODY (test code Interpre tation = [id number]) ------ <7.20 Negative 7. 20-8.79 Equivoc al >8.79 PositiveTEST PE RFORMED AT:[facility] [id number] [facility] [place] [address]JVSAFLACIE KAUR MD CYTOMEGALOVIRUS IGG *WW*2021-04-14 21:36:00 Test Item Value Reference Range Interpretation Comments CYTOMEGALOVIRUS 8.90 U/mL H ANTIBODY (IGG) (test U/ mL code = 14015687) Interpretat ion ----- <0.60 Negative 0.60-0.69 Equivocal > or = 0.70 Positive A positive result indicates that the patient hasanti body to CMV. It does not differentiate betweenan activ e or past infection. TEST PERFORMED AT:[facility] [id number] [facility] [place] [address]MH REGGIE KAUR MD CYTOMEGALOVIRUS IGM *WW*2021-04-14 21:36:00 Test Item Value Reference Range Interpretation Comments CYTOMEGALOVIRUS <30.00 AU/mL ANTIBODY (IGM) (test AU/mL Inter pretation code = 18111634) ----- <30.00 No Antibody Det ected 30.00-34.99 Equivocal > or = 35.00 Antibody DetectedResults from any one IgM ass ay should not be u sed as asole determina nt of a current or rece nt infection.Becau se an IgM test can lithuanian eld false positive results andlow level Ig M antibody may pe rsist for more than 1 2months post infection, reliance on a s marcelle test resultcoul d be misleading. Acu te infection is be st diagnosedby demonstrating t he conversion of I gG from negative toposi tive. If an acute infect ion is suspected, considerobtaini ng a new specimen and logan bmit for both IgG and Ig Mtesting in two or more weeks.TEST PERF ORMED AT:[facility] [id number] [facility] [place] [address]QBQVZSAIRA KAUR MD HERPES I TITER IGG *WW*2021-04-14 21:36:00 Test Item Value Reference Interpretation Comments Range HSV 1 IgG, 39.20 H HERPESELECT TYPE index Index Interpretation SPECIFIC AB ----- (test code = ------- ------- [id number]) <0.90 Negative 0.90-1.09 Equivocal >1.09 Positive This assay utilizes recomb inant type-specific a ntigensto differentiate H SV-1 from HSV-2 infections. Apo sitive result cannot distingu anna between recent andpast infection. If recent HSV infe ction is suspectedbut th e results are negative or equ ivocal, the assayshould be repeated in 4-6 weeks. The performancechar acteristics of the assay have not been establishedfor pediatric populations, im munocompromised patients,or gen screening.TEST PERFORMED AT:[facility] [id number] [facility].[place] [address]FDPFELACIE KAUR MD HERPES II TITER IGG 2021-04-14 08:48:00 Test Item Value Reference Interpretation Comments Range HSV 2 IGG 20.10 H HERPESELECT TYPE index Index Interpretation SPECIFIC AB ----- (test code = ------- ------- [id number]) <0.90 Negative 0.90-1.09 Equivocal >1.09 Positive This assay utilizes recomb inant type-specific a ntigensto differentiate H SV-1 from HSV-2 infections. Apo sitive result cannot distingu anna between recent andpast infection. If recent HSV infe ction is suspectedbut th e results are negative or equ ivocal, the assayshould be repeated in 4-6 weeks. The performancechar acteristics of the assay have not been establishedfor pediatric populations, im munocompromised patients,or gen screening.TEST PERFORMED AT:[facility] [id number] [facility].[place] [address]TNMERLACIE KAUR MD CBC (INCLUDES AUTOMATED DIFFERENTIAL)*[id number] 09:04:00 Test Item Value Reference Range Interpretation Comments WBC (test code = WBC) 9.8 10\S\3/uL 4.5-11.0 RBC (test code = RBC) 3.35 10\S\6/uL 4.30-5.70 L HGB (test code = HBG) 9.8 g/dL 12.0-15.5 L HCT (test code = HCT) 29.0 % 35.0-44.0 L MCV (test code = MCV) 86.6 fL 81.0-99.0 MCH (test code = MCH) 29.3 pg 27.0-31.0 MCHC (test code = MCHC) 33.8 g/dL 32.0-36.0 RDW (test code = RDW) 12.4 % 11.5-14.5 PLT (test code = PLT) 201 10\S\3/uL 130-400 MPV (test code = MPV) 10.9 fL 9.4-12.4 NEUTROP # (test code = NE#) 6.7 10\S\3/uL 1.6-8.0 LYMPH # (test code = LY#) 1.9 10\S\3/uL 1.1-3.5 MONOCYTE # (test code = MO#) 0.9 10\S\3/uL 0.0-1.1 EOSINOPH # (test code = EO#) 0.2 10\S\3/uL 0.0-0.7 BASOPHIL # (test code = BA#) 0.0 10\S\3/uL 0.0-0.3 IG # (test code = IG#) 0.05 10\S\3/uL 0.00-0.06 NRBC # (test code = NRBC#) 0.00 10\S\3/uL 0.00-0.01 NEUTROPH % (test code = NE%) 68.7 % 35.0-73.0 LYMPH % (test code = LY%) 19.0 % 20.0-55.0 L MONO % (test code = MO%) 9.4 % 2.5-10.0 EOSINOPH % (test code = EO%) 2.0 % 0.0-5.0 BASOPHIL % (test code = BA%) 0.4 % 0.0-2.0 IG % (test code = IG%) 0.5 % 0.0-0.8 NRBC% (test code = NRBC%) 0.0 % 0.0-0.2 MANDIFF (test code = WMDIFF) NO NO RBC MORPH (test code = NORMAL WRBCMOR) CBC (INCLUDES AUTOMATED DIFFERENTIAL)*[id number] 05:59:00 Test Item Value Reference Range Interpretation Comments WBC (test code = WBC) 17.0 10\S\3/uL 4.5-11.0 H RBC (test code = RBC) 3.54 10\S\6/uL 4.30-5.70 L HGB (test code = HBG) 10.5 g/dL 12.0-15.5 L HCT (test code = HCT) 30.6 % 35.0-44.0 L MCV (test code = MCV) 86.4 fL 81.0-99.0 MCH (test code = MCH) 29.7 pg 27.0-31.0 MCHC (test code = MCHC) 34.3 g/dL 32.0-36.0 RDW (test code = RDW) 12.5 % 11.5-14.5 PLT (test code = PLT) 188 10\S\3/uL 130-400 MPV (test code = MPV) 11.2 fL 9.4-12.4 NEUTROP # (test code = NE#) 12.7 10\S\3/uL 1.6-8.0 H LYMPH # (test code = LY#) 2.4 10\S\3/uL 1.1-3.5 MONOCYTE # (test code = MO#) 1.7 10\S\3/uL 0.0-1.1 H EOSINOPH # (test code = EO#) 0.1 10\S\3/uL 0.0-0.7 BASOPHIL # (test code = BA#) 0.1 10\S\3/uL 0.0-0.3 IG # (test code = IG#) 0.11 10\S\3/uL 0.00-0.06 H NRBC # (test code = NRBC#) 0.00 10\S\3/uL 0.00-0.01 NEUTROPH % (test code = NE%) 74.7 % 35.0-73.0 H LYMPH % (test code = LY%) 13.9 % 20.0-55.0 L MONO % (test code = MO%) 10.0 % 2.5-10.0 EOSINOPH % (test code = EO%) 0.5 % 0.0-5.0 BASOPHIL % (test code = BA%) 0.3 % 0.0-2.0 IG % (test code = IG%) 0.6 % 0.0-0.8 NRBC% (test code = NRBC%) 0.0 % 0.0-0.2 MANDIFF (test code = WMDIFF) NO NO RBC MORPH (test code = NORMAL WRBCMOR) LIVER PROFILE WW2021-04-12 02:33:00 Test Item Value Reference Range Interpretation Comments BILI TOTAL (test code 1.0 mg/dL 0.2-1.0 = 11A) BILI DIRCT (test code 0.3 mg/dL 0.0-0.3 = 12A) BILI INDIR (test code 0.7 mg/dL See_Comment [Auto mated message] = BILII) The system [id number] generated this result transmitted ref erence range: <=0.8. T he reference range was not used to interpr et this result as normal/abnormal . PROTEIN (test code = 6.0 g/dL 5.7-8.2 07D) ALBUMIN (test code = 3.4 g/dL 3.2-4.8 08D) GLOBULIN (test code = 2.6 g/dL 1.5-3.8 GLB) ALB/GLOB (test code = 1.3 1.0-2.6 AGRR) ALK PHOS (test code = 91 IU/L 46-116 35A) AST (test code = 30A) 58 IU/L See_Comment H [Auto mated message] The system [id number] generated this result transmitted ref erence range: <=33. Th e reference range was not used to interpr et this result as normal/abnormal . ALT (test code = 31A) 56 IU/L 10-49 H RUBELLA AB IGG 2021-04-12 02:33:00 Test Item Value Reference Range Interpretation Comments RUB AB IGG INTERP (test code = IMMUNE NON-IMMUNE A RBABINT) BASIC METABOLIC PANEL 2021-04-12 02:26:00 Test Item Value Reference Range Interpretation Comments GLUCOSE (test code 99 mg/dL 75-100 = 06D) SODIUM (test code 139 mmol/L 136-145 = 01A) POTASSIUM (test 3.3 mmol/L 3.6-5.1 L code = 01B) CHLORIDE (test 108 mmol/L 98-107 H code = 04A) CO2 (test code = 22 mmol/L 20-31 02A) ANION GAP (test 12.3 mmol/L code = ANG) BUN (test code = 5 mg/dL 9-23 L 05D) CREATININE (test 0.7 mg/dL 0.6-1.0 code = 03E) GFR (test code = 114 See_Comment [Automated GFR) mL/min/1.73m\S\2 message] Th e system which generated this result transmit marion reference range : >=90. The reference range was not used to interpret this result as normal/abnormal . GFR 133 See_Comment [Automated GABONESE (test mL/min/1.73m\S\2 message] The code = GFRAA) system which generated this result transmit marion reference range : >=90. The reference range was not used to interpret this result as normal/abnormal . EGFR (test code = eGFR BY EGFR) CKD-EPI CALCULATION IS NOT RECOMMENDED FOR PATIENTS UNDER 18 YEARS OF AGE. BUN/CREA (test 7 12-20 L code = BCR) CALCIUM (test code 9.3 mg/dL 8.3-10.6 = 09D) URIC ACID 2021-04-12 02:23:00 Test Item Value Reference Range Interpretation Comments URIC ACID (test code = 41A) 6.0 mg/dL 3.1-7.8 LDH-LACTIC DEHYDROGENASE WW2021-04-12 02:23:00 Test Item Value Reference Range Interpretation Comments LDH (test code = 33A) 295 IU/L 100-190 H MAGNESIUM WW2021-04-12 02:23:00 Test Item Value Reference Range Interpretation Comments MAGNESIUM (test code = 48A) 3.5 mg/dL 1.6-2.6 H FIBRINOGEN QUANTITATIVE *WW*2021-04-12 02:21:00 Test Item Value Reference Range Interpretation Comments FIBRINOGEN (test code = FIB) 509 mg/dL 260-480 H PRO TIME AND PTT *WW*2021-04-12 02:21:00 Test Item Value Reference Range Interpretation Comments PT (test code = 11.2 s 9.8-13.6 TT) INR (test code = 1.0 INR) INRH (test code = SUGGESTED INRH) THERAPEUTIC RANGE FOR INR: 2.5 - 3.5 For Patients with Prosthetic Valves or Patients with recurrent Thromboembolic Events 2.0 - 3.0 For Most Other Applications PTT (test code = 27.6 s 20.2-38.0 PTT) PTTH (test code = To monitor the PTTH) effectiveness of heparin, we offer the Anti-Xa (Heparin Assay). It can be used for either unfractionated or LMW Heparin. Order Code is ANTI-XA CBC (INCLUDES AUTOMATED DIFFERENTIAL)*[id number] 01:42:00 Test Item Value Reference Range Interpretation Comments WBC (test code = WBC) 17.1 10\S\3/uL 4.5-11.0 H RBC (test code = RBC) 3.75 10\S\6/uL 4.30-5.70 L HGB (test code = HBG) 11.0 g/dL 12.0-15.5 L HCT (test code = HCT) 32.8 % 35.0-44.0 L MCV (test code = MCV) 87.5 fL 81.0-99.0 MCH (test code = MCH) 29.3 pg 27.0-31.0 MCHC (test code = MCHC) 33.5 g/dL 32.0-36.0 RDW (test code = RDW) 12.5 % 11.5-14.5 PLT (test code = PLT) 200 10\S\3/uL 130-400 MPV (test code = MPV) 11.0 fL 9.4-12.4 NEUTROP # (test code = NE#) 13.5 10\S\3/uL 1.6-8.0 H LYMPH # (test code = LY#) 1.7 10\S\3/uL 1.1-3.5 MONOCYTE # (test code = MO#) 1.6 10\S\3/uL 0.0-1.1 H EOSINOPH # (test code = EO#) 0.1 10\S\3/uL 0.0-0.7 BASOPHIL # (test code = BA#) 0.0 10\S\3/uL 0.0-0.3 IG # (test code = IG#) 0.16 10\S\3/uL 0.00-0.06 H NRBC # (test code = NRBC#) 0.02 10\S\3/uL 0.00-0.01 H NEUTROPH % (test code = NE%) 79.3 % 35.0-73.0 H LYMPH % (test code = LY%) 10.2 % 20.0-55.0 L MONO % (test code = MO%) 9.1 % 2.5-10.0 EOSINOPH % (test code = EO%) 0.3 % 0.0-5.0 BASOPHIL % (test code = BA%) 0.2 % 0.0-2.0 IG % (test code = IG%) 0.9 % 0.0-0.8 H NRBC% (test code = NRBC%) 0.1 % 0.0-0.2 MANDIFF (test code = WMDIFF) NO NO RBC MORPH (test code = NORMAL WRBCMOR) HIV 2021-04-10 14:57:00 Test Item Value Reference Range Interpretation Comments HIV-1,2 and p24 (test code = NON-REACTIVE NON-REACTIVE CHIV) SYPHILIS SCREENING WW2021-04-10 14:42:00 Test Item Value Reference Range Interpretation Comments T PALLIDUM AB (test NON-REACTIVE NON-REACTIVE code = SYPHINT) SYPHC (test code = RPR test has been SYPHC) updated to Treponemal Immunoassay. Interpretation of results is similar FIBRINOGEN QUANTITATIVE *WW*2021-04-10 14:33:00 Test Item Value Reference Range Interpretation Comments FIBRINOGEN (test code = FIB) 518 mg/dL 260-480 H HEPATITIS B SURFACE ANTIGEN 2021-04-10 14:28:00 Test Item Value Reference Range Interpretation Comments HBSAG (test code = WHBSAG) NON-REACTIVE NON-REACTIVE BASIC METABOLIC PANEL 2021-04-10 14:11:00 Test Item Value Reference Range Interpretation Comments GLUCOSE (test code 102 mg/dL 75-100 H = 06D) SODIUM (test code 138 mmol/L 136-145 = 01A) POTASSIUM (test 4.1 mmol/L 3.6-5.1 code = 01B) CHLORIDE (test 106 mmol/L 98-107 code = 04A) CO2 (test code = 26 mmol/L 20-31 02A) ANION GAP (test 10.1 mmol/L code = ANG) BUN (test code = <5 mg/dL 9-23 L 05D) CREATININE (test 0.7 mg/dL 0.6-1.0 code = 03E) GFR (test code = 114 See_Comment [Automated GFR) mL/min/1.73m\S\2 message] Th e system which generated this result transmit marion reference range : >=90. The reference range was not used to interpret this result as normal/abnormal . GFR 133 See_Comment [Automated GABONESE (test mL/min/1.73m\S\2 message] The code = GFRAA) system which generated this result transmit marion reference range : >=90. The reference range was not used to interpret this result as normal/abnormal . EGFR (test code = eGFR BY EGFR) CKD-EPI CALCULATION IS NOT RECOMMENDED FOR PATIENTS UNDER 18 YEARS OF AGE. BUN/CREA (test 7 12-20 L code = BCR) CALCIUM (test code 9.4 mg/dL 8.3-10.6 = 09D) URINALYSIS WITH MICRO *WW*2021-04-10 14:09:00 Test Item Value Reference Range Interpretation Comments COLOR (test code = YELLOW YELLOW COLU) CLARITY (test code = SLT HAZY CLEAR A CLA) GLUCOSE UR (test code = NEGATIVE NEGATIVE UA GLUCOSE) BILI UR (test code = NEGATIVE NEGATIVE BILE) KETONES UR (test code = NEGATIVE NEGATIVE CAPO) SP GRAVITY (test code = 1.020 1.005-1.030 SPGR) PH UR (test code = PH) 6.5 4.5-8.0 PROTEIN UR (test code = 1+ NEGATIVE A PU) UROBIL UR (test code = 0.2 EU/dL 0.2-1.0 UROQ) NITRITE UR (test code = NEGATIVE NEGATIVE NITRITE) BLOOD UR (test code = NEGATIVE NEGATIVE UA BLOOD) LEUK ES UR (test code = NEGATIVE NEGATIVE LEUK) WBC UR (test code = 3 /HPF 0-5 UWBC) RBC UR (test code = 0 /HPF 0-2 URBC) EPITH UR (test code = FEW /LPF FEW UEPC) BACTERIA UR (test code FEW /HPF NONE A = UBACT) CAST UR (test code = /LPF NONE CAST) CRYSTAL UR (test code = CALCIUM OXALATE FEW / NONE A CRYU) LPF MUCUS UR (test code = / HPF NONE MUC) AMORPH UR (test code = / HPF NONE PASTOR) TRICH UR (test code = /HPF NONE UTRICH) YEAST UR (test code = /HPF NONE UY) SPERM UR (test code = /HPF NONE USPERM) SARS-CoV (RAPID ANTIGEN) WW2021-04-10 14:06:00 Test Item Value Reference Range Interpretation Comments SARS-CoV (ANTIGEN) NEGATIVE NEGATIVE (test code = COVAG) COVID AG (test This test has been code = COVAGC) marketed under the FDA Emergency Use Authorization (EUA) to meet challenges of the COVID-19 pandemic. The validation standards normally enforced by the FDA and the [employer] (CAP) are more stringent than those required for this test. Therefore, the result should be interpreted with caution and close attention to other clinical and epidemiological data CBC (INCLUDES AUTOMATED DIFFERENTIAL)*[id number] 13:54:00 Test Item Value Reference Range Interpretation Comments WBC (test code = WBC) 8.8 10\S\3/uL 4.5-11.0 RBC (test code = RBC) 3.51 10\S\6/uL 4.30-5.70 L HGB (test code = HBG) 10.3 g/dL 12.0-15.5 L HCT (test code = HCT) 30.7 % 35.0-44.0 L MCV (test code = MCV) 87.5 fL 81.0-99.0 MCH (test code = MCH) 29.3 pg 27.0-31.0 MCHC (test code = MCHC) 33.6 g/dL 32.0-36.0 RDW (test code = RDW) 12.4 % 11.5-14.5 PLT (test code = PLT) 202 10\S\3/uL 130-400 MPV (test code = MPV) 10.7 fL 9.4-12.4 NEUTROP # (test code = NE#) 6.0 10\S\3/uL 1.6-8.0 LYMPH # (test code = LY#) 1.6 10\S\3/uL 1.1-3.5 MONOCYTE # (test code = MO#) 1.0 10\S\3/uL 0.0-1.1 EOSINOPH # (test code = EO#) 0.2 10\S\3/uL 0.0-0.7 BASOPHIL # (test code = BA#) 0.0 10\S\3/uL 0.0-0.3 IG # (test code = IG#) 0.04 10\S\3/uL 0.00-0.06 NRBC # (test code = NRBC#) 0.00 10\S\3/uL 0.00-0.01 NEUTROPH % (test code = NE%) 68.0 % 35.0-73.0 LYMPH % (test code = LY%) 18.1 % 20.0-55.0 L MONO % (test code = MO%) 11.1 % 2.5-10.0 H EOSINOPH % (test code = EO%) 2.0 % 0.0-5.0 BASOPHIL % (test code = BA%) 0.3 % 0.0-2.0 IG % (test code = IG%) 0.5 % 0.0-0.8 NRBC% (test code = NRBC%) 0.0 % 0.0-0.2 MANDIFF (test code = WMDIFF) NO NO RBC MORPH (test code = NORMAL WRBCMOR) U/S >14 WEEKS*WW*2021-04-10 13:32:39 [facility] 1990 Sex: F ADDENDUM #1 Addendum: Findings were discussed by phone with Dr. Woo, the on- call physician, at 1:32 PM on 04/10/2021.Electronically signed by: Luis Alberto Majano MD 04/10/2021 1:32 PM [facility] /S >14 WEEKS*WW* 2021-01-15 11:01:07 [facility] : 1990 Sex: FExam: Obstetrical ultrasound.CLINICAL HISTORY: High risk .LOCATION: D4.FINDINGS: Real- time grayscale sonographic evaluation is performed including Doppler evaluation. No comparison studies. The cervix measures 3.7 cm in length. The fetus is in variable presentation during this exam. There is an anterior/fundal grade 1 placenta without evidence of placenta previa. No abnormalities noted of the intracranial contents or of the spine. The stomach, kidneys, and bladder are identified. There is a three-vessel umbilical cord with no abnormalities noted at the cord insertion site. There tra four-chamber heart with heart rate of 143 bpm. Amniotic fluid index is 10.4 cm. BPD: 4.5 cm,19 weeks 4 days HC: 16.1 cm, 18 weeks 6 days AC: 14.6 cm, 19 weeks 6 days FL: 2.8 cm, 18 weeks 4 days Biometric ratios are within normal limits. Estimated weight is 283 grams. This corresponds tothe 27th percentile based on ultrasound age. The maternal adnexa are not visualized due to gestational age.IMPRESSION:1. There is a single viable intrauterine gestation currently in variable presentation. Ultrasound estimated gestational age is 19 weeks 5 days . 2. weight is at the 27th percentile based on ultrasound.Electronically signed by: Everette Back MD 01/15/2021 11:01 AM SENIOR QUALITY MANAGER [id number] 08:10:00 Test Item Value Reference Range Interpretation Comments Culture Observations (test NO GROWTH (<1,000 code = COB1) CFU/ML) MAGNESIUM WW2018-04-09 02:53:00 Test Item Value Reference Range Interpretation Comments MAGNESIUM (test code = 48A) 3.2 mg/dL 1.8-2.4 H FIBRINOGEN QUANTITATIVE *WW*2018-04-08 22:11:00 Test Item Value Reference Range Interpretation Comments FIBRINOGEN (test code = FIB) 422 mg/dL 260-480 LIVER PROFILE 2018-04-08 21:40:00 Test Item Value Reference Range Interpretation Comments BILI TOTAL (test code = 11A) 0.4 mg/dL 0.2-1.0 BILI DIRCT (test code = 12A) 0.1 mg/dL 0.0-0.2 BILI INDIR (test code = BILII) 0.3 mg/dL <=0.8 PROTEIN (test code = 07D) 6.5 g/dL 6.4-8.2 ALBUMIN (test code = 08D) 2.7 g/dL 3.5-4.8 L GLOBULIN (test code = GLB) 3.8 g/dL 1.5-3.8 ALB/GLOB (test code = AGRR) 0.7 1.0-2.6 L ALK PHOS (test code = 35A) 85 IU/L 42-121 AST (test code = 30A) 41 IU/L <=42 ALT (test code = 31A) 63 IU/L <=78 PRO TIME AND PTT *WW*2018-04-08 21:37:00 Test Item Value Reference Range Interpretation Comments PT (test code = 10.7 s 9.8-13.6 TT) INR (test code = 0.9 INR) INRH (test code = SUGGESTED INRH) THERAPEUTIC RANGE FOR INR: 2.5 - 3.5 For Patients with Prosthetic Valves or Patients with recurrent Thromboembolic Events 2.0 - 3.0 For Most Other Applications PTT (test code = 25.5 s 20.2-38.0 PTT) PTTH (test code = To monitor the PTTH) effectiveness of heparin, we offer the Anti-Xa (Heparin Assay). It can be used for either unfractionated or LMW Heparin. Order Code is ANTI-XA BASIC METABOLIC PANEL *WW*2018-04-08 21:34:00 Test Item Value Reference Range Interpretation Comments GLUCOSE (test code = 06D) 78 mg/dL 75-100 SODIUM (test code = 01A) 142 mmol/L 136-145 POTASSIUM (test code = 01B) 3.7 mmol/L 3.6-5.1 CHLORIDE (test code = 04A) 109 mmol/L 98-107 H CO2 (test code = 02A) 24 mmol/L 22-32 ANION GAP (test code = ANG) 12.3 mmol/L BUN (test code = 05D) 6 mg/dL 7-18 L CREATININE (test code = 03E) 0.7 mg/dL 0.4-1.1 BUN/CREA (test code = BCR) 8 12-20 L CALCIUM (test code = 09D) 8.1 mg/dL 8.3-9.5 L URINALYSIS WITH MICRO 2018-04-08 21:30:00 Test Item Value Reference Range Interpretation Comments COLOR (test code = COLU) DK YELLOW YELLOW A CLARITY (test code = CLA) HAZY CLEAR A GLUCOSE UR (test code = UA GLUCOSE) NEGATIVE NEGATIVE BILI UR (test code = BILE) NEGATIVE NEGATIVE KETONES UR (test code = CAPO) NEGATIVE NEGATIVE SP GRAVITY (test code = SPGR) >=1.030 1.005-1.030 PH UR (test code = PH) 6.0 4.5-8.0 PROTEIN UR (test code = PU) 1+ NEGATIVE A UROBIL UR (test code = UROQ) 0.2 EU/dL 0.2-1.0 NITRITE UR (test code = NITRITE) NEGATIVE NEGATIVE BLOOD UR (test code = UA BLOOD) 2+ NEGATIVE A LEUK ES UR (test code = LEUK) TRACE NEGATIVE A WBC UR (test code = UWBC) 3 /HPF 0-5 RBC UR (test code = URBC) 7 /HPF 0-2 H EPITH UR (test code = UEPC) FEW /LPF FEW BACTERIA UR (test code = UBACT) FEW /HPF NONE A CAST UR (test code = CAST) /LPF NONE CRYSTAL UR (test code = CRYU) / LPF NONE MUCUS UR (test code = MUC) / HPF NONE AMORPH UR (test code = PASTOR) / HPF NONE TRICH UR (test code = UTRICH) /HPF NONE YEAST UR (test code = UY) /HPF NONE SPERM UR (test code = USPERM) /HPF NONE CBC (INCLUDES AUTOMATED DIFFERENTIAL)*[id number] 21:22:00 Test Item Value Reference Range Interpretation Comments WBC (test code = WBC) 8.0 10\S\3/uL 4.5-11.0 RBC (test code = RBC) 3.12 10\S\6/uL 4.30-5.70 L HGB (test code = HBG) 9.4 g/dL 12.0-15.5 L HCT (test code = HCT) 27.6 % 35.0-44.0 L MCV (test code = MCV) 88.5 fL 81.0-99.0 MCH (test code = MCH) 30.1 pg 27.0-31.0 MCHC (test code = MCHC) 34.1 g/dL 32.0-36.0 RDW (test code = RDW) 13.0 % 11.5-14.5 PLT (test code = PLT) 229 10\S\3/uL 130-400 MPV (test code = MPV) 10.0 fL 9.4-12.4 NEUTROP # (test code = NE#) 4.8 10\S\3/uL 1.6-8.0 LYMPH # (test code = LY#) 2.1 10\S\3/uL 1.1-3.5 MONOCYTE # (test code = MO#) 0.8 10\S\3/uL 0.0-1.1 EOSINOPH # (test code = EO#) 0.3 10\S\3/uL 0.0-0.7 BASOPHIL # (test code = BA#) 0.0 10\S\3/uL 0.0-0.3 IG # (test code = IG#) 0.03 10\S\3/uL 0.00-0.06 NRBC # (test code = NRBC#) 0.00 10\S\3/uL 0.00-0.01 NEUTROPH % (test code = NE%) 60.4 % 35.0-73.0 LYMPH % (test code = LY%) 25.7 % 20.0-55.0 MONO % (test code = MO%) 10.2 % 2.5-10.0 H EOSINOPH % (test code = EO%) 3.1 % 0.0-5.0 BASOPHIL % (test code = BA%) 0.2 % 0.0-2.0 IG % (test code = IG%) 0.4 % 0.0-0.8 NRBC% (test code = NRBC%) 0.0 % 0.0-0.2 MANDIFF (test code = WMDIFF) NO NO RBC MORPH (test code = NORMAL WRBCMOR) CBC (INCLUDES AUTOMATED DIFFERENTIAL)*[id number] 07:13:00 Test Item Value Reference Range Interpretation Comments WBC (test code = WBC) 10.8 10\S\3/uL 4.5-11.0 RBC (test code = RBC) 3.20 10\S\6/uL 4.30-5.70 L HGB (test code = HBG) 9.6 g/dL 12.0-15.5 L HCT (test code = HCT) 27.8 % 35.0-44.0 L MCV (test code = MCV) 86.9 fL 81.0-99.0 MCH (test code = MCH) 30.0 pg 27.0-31.0 MCHC (test code = MCHC) 34.5 g/dL 32.0-36.0 RDW (test code = RDW) 12.7 % 11.5-14.5 PLT (test code = PLT) 183 10\S\3/uL 130-400 MPV (test code = MPV) 10.9 fL 9.4-12.4 NEUTROP # (test code = NE#) 8.0 10\S\3/uL 1.6-8.0 LYMPH # (test code = LY#) 1.7 10\S\3/uL 1.1-3.5 MONOCYTE # (test code = MO#) 1.0 10\S\3/uL 0.0-1.1 EOSINOPH # (test code = EO#) 0.1 10\S\3/uL 0.0-0.7 BASOPHIL # (test code = BA#) 0.0 10\S\3/uL 0.0-0.3 IG # (test code = IG#) 0.05 10\S\3/uL 0.00-0.06 NRBC # (test code = NRBC#) 0.00 10\S\3/uL 0.00-0.01 NEUTROPH % (test code = NE%) 73.5 % 35.0-73.0 H LYMPH % (test code = LY%) 15.7 % 20.0-55.0 L MONO % (test code = MO%) 9.3 % 2.5-10.0 EOSINOPH % (test code = EO%) 0.7 % 0.0-5.0 BASOPHIL % (test code = BA%) 0.3 % 0.0-2.0 IG % (test code = IG%) 0.5 % 0.0-0.8 NRBC% (test code = NRBC%) 0.0 % 0.0-0.2 MANDIFF (test code = WMDIFF) NO NO RBC MORPH (test code = NORMAL WRBCMOR) DRUGS OF ABUSE *WW*2018-04-04 14:57:00 Test Item Value Reference Range Interpretation Comments DRUG SCRN (test code URINE DRUG SCREEN = HDOA) This is an unconfirmed screening result and should not be used for non-medical purposes CANNABINOD (test code Negative NEGATIVE = 88C) AMPHETAMINE (test Negative NEGATIVE code = 84A) BENZODIAZP (test code Negative NEGATIVE = 86A) BARBITURAT (test code POSITIVE NEGATIVE A = 85A) OPIATES (test code = Negative NEGATIVE 92B) COCAINE (test code = Negative NEGATIVE 87A) PHENCYCLID (test code Negative NEGATIVE = 66A) METHADONE (test code Negative NEGATIVE = 64A) DOAH (test code = DOAH.) *URINE DRUG SCREEN Cut-off values are as follows: Cannabinoids 50 ng/mL Cocaine 300 ng/mL Amphetamines 1000 ng/mL Phencyclidine 25 ng/mL Benzodiazepines 200 ng.mL Methadone 300 ng/mL Barbiturates 200 ng/mL Opiates 2000 ng/mL RUBELLA AB IGG WW2018-04-04 11:42:00 Test Item Value Reference Range Interpretation Comments RUB AB IGG INTERP (test code = IMMUNE NON-IMMUNE A RBABINT) HIV *WW*2018-04-04 08:46:00 Test Item Value Reference Range Interpretation Comments HIV-1,2 and p24 (test code = NON-REACTIVE NON-REACTIVE CHIV) HEPATITIS B SURFACE ANTIGEN *WW*2018-04-04 08:18:00 Test Item Value Reference Range Interpretation Comments HBSAG (test code = HBSAG) NON-REACTIVE NON-REACTIVE SYPHILIS SCREENING WW2018-04-04 08:18:00 Test Item Value Reference Range Interpretation Comments T PALLIDUM AB (test NON-REACTIVE NON-REACTIVE code = SYPHINT) SYPHC (test code = RPR test has been SYPHC) updated to Treponemal Immunoassay. Interpretation of results is similar LIVER PROFILE WW2018-04-04 02:48:00 Test Item Value Reference Range Interpretation Comments BILI TOTAL (test code = 11A) 0.6 mg/dL 0.2-1.0 BILI DIRCT (test code = 12A) 0.2 mg/dL 0.0-0.2 BILI INDIR (test code = BILII) 0.5 mg/dL <=0.8 PROTEIN (test code = 07D) 7.2 g/dL 6.4-8.2 ALBUMIN (test code = 08D) 3.0 g/dL 3.5-4.8 L GLOBULIN (test code = GLB) 4.1 g/dL 1.5-3.8 H ALB/GLOB (test code = AGRR) 0.7 1.0-2.6 L ALK PHOS (test code = 35A) 111 IU/L 42-121 AST (test code = 30A) 19 IU/L <=42 ALT (test code = 31A) 14 IU/L <=78 FIBRINOGEN QUANTITATIVE *WW*2018-04-04 02:32:00 Test Item Value Reference Range Interpretation Comments FIBRINOGEN (test code = FIB) 493 mg/dL 260-480 H BASIC METABOLIC PANEL *WW*2018-04-04 02:17:00 Test Item Value Reference Range Interpretation Comments GLUCOSE (test code = 06D) 74 mg/dL 75-100 L SODIUM (test code = 01A) 139 mmol/L 136-145 POTASSIUM (test code = 01B) 3.7 mmol/L 3.6-5.1 CHLORIDE (test code = 04A) 106 mmol/L 98-107 CO2 (test code = 02A) 23 mmol/L 22-32 ANION GAP (test code = ANG) 13.3 mmol/L BUN (test code = 05D) 8 mg/dL 7-18 CREATININE (test code = 03E) 0.7 mg/dL 0.4-1.1 BUN/CREA (test code = BCR) 12 12-20 CALCIUM (test code = 09D) 8.9 mg/dL 8.3-9.5 PRO TIME AND PTT 2018-04-04 02:14:00 Test Item Value Reference Range Interpretation Comments PT (test code = 11.2 s 9.8-13.6 TT) INR (test code = 1.0 INR) INRH (test code = SUGGESTED INRH) THERAPEUTIC RANGE FOR INR: 2.5 - 3.5 For Patients with Prosthetic Valves or Patients with recurrent Thromboembolic Events 2.0 - 3.0 For Most Other Applications PTT (test code = 26.4 s 20.2-38.0 PTT) PTTH (test code = To monitor the PTTH) effectiveness of heparin, we offer the Anti-Xa (Heparin Assay). It can be used for either unfractionated or LMW Heparin. Order Code is ANTI-XA CBC (INCLUDES AUTOMATED DIFFERENTIAL)*[id number] 01:48:00 Test Item Value Reference Range Interpretation Comments WBC (test code = WBC) 12.6 10\S\3/uL 4.5-11.0 H RBC (test code = RBC) 3.78 10\S\6/uL 4.30-5.70 L HGB (test code = HBG) 11.4 g/dL 12.0-15.5 L HCT (test code = HCT) 33.0 % 35.0-44.0 L MCV (test code = MCV) 87.3 fL 81.0-99.0 MCH (test code = MCH) 30.2 pg 27.0-31.0 MCHC (test code = MCHC) 34.5 g/dL 32.0-36.0 RDW (test code = RDW) 12.6 % 11.5-14.5 PLT (test code = PLT) 208 10\S\3/uL 130-400 MPV (test code = MPV) 10.7 fL 9.4-12.4 NEUTROP # (test code = NE#) 9.5 10\S\3/uL 1.6-8.0 H LYMPH # (test code = LY#) 2.1 10\S\3/uL 1.1-3.5 MONOCYTE # (test code = MO#) 0.8 10\S\3/uL 0.0-1.1 EOSINOPH # (test code = EO#) 0.1 10\S\3/uL 0.0-0.7 BASOPHIL # (test code = BA#) 0.0 10\S\3/uL 0.0-0.3 IG # (test code = IG#) 0.05 10\S\3/uL 0.00-0.06 NRBC # (test code = NRBC#) 0.00 10\S\3/uL 0.00-0.01 NEUTROPH % (test code = NE%) 75.4 % 35.0-73.0 H LYMPH % (test code = LY%) 16.5 % 20.0-55.0 L MONO % (test code = MO%) 6.6 % 2.5-10.0 EOSINOPH % (test code = EO%) 0.9 % 0.0-5.0 BASOPHIL % (test code = BA%) 0.2 % 0.0-2.0 IG % (test code = IG%) 0.4 % 0.0-0.8 NRBC% (test code = NRBC%) 0.0 % 0.0-0.2 MANDIFF (test code = WMDIFF) NO NO RBC MORPH (test code = NORMAL WRBCMOR) URINALYSIS WITH MICRO *WW*2018-04-03 23:52:00 Test Item Value Reference Range Interpretation Comments COLOR (test code = COLU) YELLOW YELLOW CLARITY (test code = CLA) SLT HAZY CLEAR A GLUCOSE UR (test code = UA NEGATIVE NEGATIVE GLUCOSE) BILI UR (test code = BILE) NEGATIVE NEGATIVE KETONES UR (test code = CAPO) 1+ NEGATIVE A SP GRAVITY (test code = SPGR) 1.010 1.005-1.030 PH UR (test code = PH) 6.5 4.5-8.0 PROTEIN UR (test code = PU) NEGATIVE NEGATIVE UROBIL UR (test code = UROQ) 0.2 EU/dL 0.2-1.0 NITRITE UR (test code = NITRITE) NEGATIVE NEGATIVE BLOOD UR (test code = UA BLOOD) TRACE-INTACT NEGATIVE A LEUK ES UR (test code = LEUK) NEGATIVE NEGATIVE WBC UR (test code = UWBC) 1 /HPF 0-5 RBC UR (test code = URBC) 4 /HPF 0-2 H EPITH UR (test code = UEPC) FEW /LPF FEW BACTERIA UR (test code = UBACT) FEW /HPF NONE A CAST UR (test code = CAST) /LPF NONE CRYSTAL UR (test code = CRYU) / LPF NONE MUCUS UR (test code = MUC) / HPF NONE AMORPH UR (test code = PASTOR) / HPF NONE TRICH UR (test code = UTRICH) /HPF NONE YEAST UR (test code = UY) /HPF NONE SPERM UR (test code = USPERM) /HPF NONE U/S BIO-PHYSICAL PROFILE2018-04-03 10:03:32Location of dictation: [id number] PROFILE: CLINICAL INDICATION: [id number]: Hypertensive disorderTE CHNIQUE: Dynamic scanning of the gravid uterus was performed.FINDINGS: There is a single living in cephalic presentation. Cardiacactivity was documented at 150 beats per minute and regular. The cervix isclosed measuring 3.9 cm. The placenta is anterior with no evidence for previa.Grade 2 changes are noted. Amniotic fluid index measures 10.7 cm with thesingle deepest pocket measuring 2.8 cm.Biophysical profile was performed: breathing movements: 2.Gross body movement: 2. tone: 2.Qualitative amniotic fluid volume: 2.Total score is 8.SD ratio 2.3, normalIMPRESSION:1. Single viable in cephalic presentation.2. Biophysical profile score excluding nonstress test of 8 of 8.U/S BIO-PHYSICAL PROFILE2018-03-27 10:12:02BIOPHYSICAL PROFILE: Location Code: [id number] INDICATION: Hypertensive disorderTECHNIQUE: Dynamic s edmond of the gravid uterus was performed.FINDINGS: There is a single viable in vertex presentation. Cardiacactivity was documented at 142 beats per minute and regular. The cervix isclosed measuring 3.4 cm. Amniotic fluid index measures 14.2 cm with the singledeepest pocket measuring 4.3cm.Umbilical S/D ratio measures 2.3.Biophysical profile was performed: breathing movements: 2Grossbody movement: 2Fetal tone: 2Qualitative amniotic fluid volume: 2Total score is 8/8IMPRESSION:1. Single viable in vertex presentation.2. Biophysical profile score excluding nonstress test of 8 of 8. URINE [id number] 09:30:00 Test Item Value Reference Range Interpretation Comments Culture Observations THREE OR MORE SPECIES (test code = COB1) OF BACTERIA ISOLATED. PROBABLE CONTAMINATION. Culture Observations IDENTIFICATION AND (test code = COB17) SUSCEPTIBILITY NOT INDICATED. RECOLLECTION RECOMMENDED HIV *WW*2018-03-21 20:51:00 Test Item Value Reference Range Interpretation Comments HIV-1,2 and p24 (test code = NON-REACTIVE NON-REACTIVE CHIV) SYPHILIS SCREENING WW2018-03-21 20:25:00 Test Item Value Reference Range Interpretation Comments T PALLIDUM AB (test NON-REACTIVE NON-REACTIVE code = SYPHINT) SYPHC (test code = RPR test has been SYPHC) updated to Treponemal Immunoassay. Interpretation of results is similar HEPATITIS B SURFACE ANTIGEN *WW*2018-03-21 20:24:00 Test Item Value Reference Range Interpretation Comments HBSAG (test code = HBSAG) NON-REACTIVE NON-REACTIVE PRO TIME AND PTT *WW*2018-03-21 13:00:00 Test Item Value Reference Range Interpretation Comments PT (test code = 11.1 s 9.8-13.6 TT) INR (test code = 1.0 INR) INRH (test code = SUGGESTED INRH) THERAPEUTIC RANGE FOR INR: 2.5 - 3.5 For Patients with Prosthetic Valves or Patients with recurrent Thromboembolic Events 2.0 - 3.0 For Most Other Applications PTT (test code = 26.4 s 20.2-38.0 PTT) PTTH (test code = To monitor the PTTH) effectiveness of heparin, we offer the Anti-Xa (Heparin Assay). It can be used for either unfractionated or LMW Heparin. Order Code is ANTI-XA FIBRINOGEN QUANTITATIVE *WW*2018-03-21 13:00:00 Test Item Value Reference Range Interpretation Comments FIBRINOGEN (test code = FIB) 552 mg/dL 260-480 H LDH-LACTIC DEHYDROGENASE 2018-03-21 12:18:00 Test Item Value Reference Range Interpretation Comments LDH (test code = 33A) 152 IU/L 100-190 LIVER PROFILE 2018-03-21 12:17:00 Test Item Value Reference Range Interpretation Comments BILI TOTAL (test code = 11A) 0.4 mg/dL 0.2-1.0 BILI DIRCT (test code = 12A) 0.1 mg/dL 0.0-0.2 BILI INDIR (test code = BILII) 0.3 mg/dL <=0.8 PROTEIN (test code = 07D) 6.7 g/dL 6.4-8.2 ALBUMIN (test code = 08D) 2.6 g/dL 3.5-4.8 L GLOBULIN (test code = GLB) 4.1 g/dL 1.5-3.8 H ALB/GLOB (test code = AGRR) 0.6 1.0-2.6 L ALK PHOS (test code = 35A) 100 IU/L 42-121 AST (test code = 30A) 16 IU/L <=42 ALT (test code = 31A) 14 IU/L <=78 URIC ACID *WW*2018-03-21 12:12:00 Test Item Value Reference Range Interpretation Comments URIC ACID (test code = 41A) 5.4 mg/dL 2.6-6.0 COMPREHENSIVE METABOLIC BRAGG *WW*2018-03-21 12:12:00 Test Item Value Reference Range Interpretation Comments GLUCOSE (test code = 06D) 80 mg/dL 75-100 SODIUM (test code = 01A) 138 mmol/L 136-145 POTASSIUM (test code = 01B) 4.1 mmol/L 3.6-5.1 CHLORIDE (test code = 04A) 107 mmol/L 98-107 CO2 (test code = 02A) 24 mmol/L 22-32 ANION GAP (test code = ANG) 11.4 mmol/L BUN (test code = 05D) 7 mg/dL 7-18 CREATININE (test code = 03E) 0.7 mg/dL 0.4-1.1 BUN/CREA (test code = BCR) 10 12-20 L CALCIUM (test code = 09D) 8.9 mg/dL 8.3-9.5 BILI TOTAL (test code = 11A) 0.4 mg/dL 0.2-1.0 PROTEIN (test code = 07D) 6.7 g/dL 6.4-8.2 ALBUMIN (test code = 08D) 2.6 g/dL 3.5-4.8 L GLOBULIN (test code = GLB) 4.1 g/dL 1.5-3.8 H ALB/GLOB (test code = AGRR) 0.6 1.0-2.6 L ALK PHOS (test code = 35A) 100 IU/L 42-121 AST (test code = 30A) 16 IU/L <=42 ALT (test code = 31A) 14 IU/L <=78 URINALYSIS WITH MICRO *WW*2018-03-21 12:03:00 Test Item Value Reference Range Interpretation Comments COLOR (test code = COLU) YELLOW YELLOW CLARITY (test code = CLA) HAZY CLEAR A GLUCOSE UR (test code = UA NEGATIVE NEGATIVE GLUCOSE) BILI UR (test code = BILE) NEGATIVE NEGATIVE KETONES UR (test code = CAPO) TRACE NEGATIVE A SP GRAVITY (test code = SPGR) 1.015 1.005-1.030 PH UR (test code = PH) 6.5 4.5-8.0 PROTEIN UR (test code = PU) TRACE NEGATIVE A UROBIL UR (test code = UROQ) 1.0 EU/dL 0.2-1.0 NITRITE UR (test code = NEGATIVE NEGATIVE NITRITE) BLOOD UR (test code = UA BLOOD) NEGATIVE NEGATIVE LEUK ES UR (test code = LEUK) 3+ NEGATIVE A WBC UR (test code = UWBC) 12 /HPF 0-5 H RBC UR (test code = URBC) 0 /HPF 0-2 EPITH UR (test code = UEPC) MODERATE /LPF FEW A BACTERIA UR (test code = UBACT) MODERATE /HPF NONE A CAST UR (test code = CAST) /LPF NONE CRYSTAL UR (test code = CRYU) / LPF NONE MUCUS UR (test code = MUC) FEW / HPF NONE A AMORPH UR (test code = PASTOR) / HPF NONE TRICH UR (test code = UTRICH) /HPF NONE YEAST UR (test code = UY) /HPF NONE SPERM UR (test code = USPERM) /HPF NONE CBC (INCLUDES AUTOMATED DIFFERENTIAL)*[id number] 11:55:00 Test Item Value Reference Range Interpretation Comments WBC (test code = WBC) 9.3 10\S\3/uL 4.5-11.0 RBC (test code = RBC) 3.78 10\S\6/uL 4.30-5.70 L HGB (test code = HBG) 11.3 g/dL 12.0-15.5 L HCT (test code = HCT) 32.2 % 35.0-44.0 L MCV (test code = MCV) 85.2 fL 81.0-99.0 MCH (test code = MCH) 29.9 pg 27.0-31.0 MCHC (test code = MCHC) 35.1 g/dL 32.0-36.0 RDW (test code = RDW) 12.4 % 11.5-14.5 PLT (test code = PLT) 218 10\S\3/uL 130-400 MPV (test code = MPV) 10.6 fL 9.4-12.4 NEUTROP # (test code = NE#) 6.5 10\S\3/uL 1.6-8.0 LYMPH # (test code = LY#) 1.8 10\S\3/uL 1.1-3.5 MONOCYTE # (test code = MO#) 0.9 10\S\3/uL 0.0-1.1 EOSINOPH # (test code = EO#) 0.1 10\S\3/uL 0.0-0.7 BASOPHIL # (test code = BA#) 0.0 10\S\3/uL 0.0-0.3 IG # (test code = IG#) 0.04 10\S\3/uL 0.00-0.06 NRBC # (test code = NRBC#) 0.00 10\S\3/uL 0.00-0.01 NEUTROPH % (test code = NE%) 69.4 % 35.0-73.0 LYMPH % (test code = LY%) 19.5 % 20.0-55.0 L MONO % (test code = MO%) 9.4 % 2.5-10.0 EOSINOPH % (test code = EO%) 1.0 % 0.0-5.0 BASOPHIL % (test code = BA%) 0.3 % 0.0-2.0 IG % (test code = IG%) 0.4 % 0.0-0.8 NRBC% (test code = NRBC%) 0.0 % 0.0-0.2 MANDIFF (test code = WMDIFF) NO NO RBC MORPH (test code = NORMAL WRBCMOR) U/S BIO-PHYSICAL PROFILE2018-03-20 10:12:17Exam: Biophysical profileHISTORY: Hypertensive disorderTECHNIQUE: Transverse and longitudinal sonographic images were obtained.FINDINGS: A single, viable intrauterine is seen in vertexpresentation. There is a anteriorly located placenta with no evidence ofplacenta previa. The cervix is closed and measures 4.2 cm in length. The fetalheart is 144 beats per minute. The FRANKY is 13.1 cm with largest pocket measuring4.0 cm. The SD ratio is 2.30The biophysical profile is as follows: breathingmovements-2.Gross body movement-2. tone-2.Qualitative amniotic fluid volume-2.IMPRESSION:1. Single, viable intrauterine with a biophysical profile score of8/8.U/S BIO-PHYSICAL PROFILE2018-03-13 10:26:33 EXAMINATION: U/S BIO-PHYSICAL PROFILE.LOCATION: S17.HISTORY: Hypertensive disorder.COMPARISON: Biophysical ultrasound 03/06/18.TECHNIQUE: Transverse and longitudinal real time images of the abdomen wereobtained for biophysical profile score.FINDINGS: Observation for at least 20 minutes demonstrates: breathin muscle tone: 2Acute motion and: 2Amniotic fluid volume: 2Total biophysical profile score of 8/8.A single intrauterine with the fetus vertex in position is seen. Theheart rate is approximately 149 beats per minute. Amniotic fluid index isapproximately 18.09cm, with the deepest vertical pocket of 6.98 cm. The fetalinternal organs were not well visualized,due to the late gestational age.Placenta is located anteriorly. Cervix measures 4.35 cm. S/D ratio of 2.17.IMPRESSION: A total biophysical profile score is 8 out of 8 was obtained. A single, liveintrauterine is vertex in position.U/S BIO-PHYSICAL PROFILE2018-03-06 10:27:56 EXAMINATION: U/S BIO-PHYSICAL PROFILE.LOCATION: D4.HISTORY: Hypertensive disorder.COMPARISON: Biophysical ultrasound 03/03/2018.TECHNIQUE: Transverse and longitudinal real time images of the abdomen wereobtained for biophysical profile score.FINDINGS: Observation for at least 20 minutes demonstrates: breathin muscle tone: 2Acute motion and: 2Amniotic fluid volume: 2Total biophysical profile score of 8/8.A single intrauterine with the fetus vertex in position is seen. Theheart rate is approximately 154 beats per minute. Amniotic fluid index isapproximately 18.51cm, with the deepest vertical pocket of 8.93 cm. The fetalinternal organs were not well visualized,due to the late gestational age.Placenta is located anteriorly. Cervix measures 5.67. S/D ratio of 2.11. Theumbilical cord is noted posterior to the neck.IMPRESSION: A total biophysical profile score is 8 out of 8 was obtained. A single, liveintrauterine is vertex in position.Umbilical cord is noted posterior to the neck.U/S BIO-PHYSICAL PROFILE2018-03-03 08:24:00BIOPHYSICAL PROFILE: Location Code: [id number] INDICATION: Hypertensive disorderTECHNIQUE: Dynamic scanning of the gravid uterus was performed.FINDINGS: There is a single viable in vertex presentation. Cardiacactivity was documented at 140 beats per minute and regular. The cervix isclosed measuring 5.9 cm. Amniotic fluid index measures 12.8 cm with the singledeepest pocket measuring 3.7 cm. Umbilical S/D ratio measures 2.5.Biophysical profile was performed: breathing movements: 2Gross body movement: 2Fetal tone: 2Qualitative amniotic fluid volume: 2Total score is 8/8IMPRESSION:1.Single viable in vertex presentation.2. Biophysical profile score excluding nonstress testof 8 of 8.U/S BIO-PHYSICAL PROFILE2018-02-28 13:57:25Exam: Biophysical profileHISTORY: with hypertensionTECHNIQUE: Transverse and longitudinal sonographic images were obtained.FINDINGS: A single, viable intrauterine is seen in vertexpresentation. There is a anteriorly located placenta with no evidence ofplacenta previa. The cervix isclosed and measures 3.3 cm in length. The fetalheart is 145 beats per minute. The FRANKY is 21.6 cm. Largest pocket measures 6.2cm.The biophysical profile is as follows: breathing movements-2.Gross body movement-2. tone- 2.Qualitative amniotic fluid volume-2.IMPRESSION:1. Single, viable intrauterine with a biophysical profile score of8/8.URINE [id number] 11:59:00 Test Item Value Reference Range Interpretation Comments Culture Observations THREE OR MORE SPECIES (test code = COB1) OF BACTERIA ISOLATED. PROBABLE CONTAMINATION. Culture Observations IDENTIFICATION AND (test code = COB17) SUSCEPTIBILITY NOT INDICATED. RECOLLECTION RECOMMENDED CREATININE 24 HR URINE 2017-12-15 15:24:00 Test Item Value Reference Range Interpretation Comments TV 24HR (test code = TV) 500 mL CREA 24H C (test code = CREATC) 1.2 g/24hr 1.0-1.9 PROTEIN TOTAL 24 HOURS URIN 2017-12-15 15:07:00 Test Item Value Reference Range Interpretation Comments TV 24HR (test code = TV) 500 mL PROT 24H C (test code = UPRC) 80 mg/24hr 50-100 COMPREHENSIVE METABOLIC BRAGG 2017-12-15 12:34:00 Test Item Value Reference Range Interpretation Comments GLUCOSE (test code = 06D) 72 mg/dL 75-100 L SODIUM (test code = 01A) 138 mmol/L 136-145 POTASSIUM (test code = 01B) 3.6 mmol/L 3.6-5.1 CHLORIDE (test code = 04A) 104 mmol/L 98-107 CO2 (test code = 02A) 24 mmol/L 22-32 ANION GAP (test code = ANG) 14.0 mmol/L BUN (test code = 05D) 4 mg/dL 7-18 L CREATININE (test code = 03E) 0.6 mg/dL 0.4-1.1 BUN/CREA (test code = BCR) 7 12-20 L CALCIUM (test code = 09D) 8.7 mg/dL 8.3-9.5 BILI TOTAL (test code = 11A) 0.5 mg/dL 0.2-1.0 PROTEIN (test code = 07D) 7.1 g/dL 6.4-8.2 ALBUMIN (test code = 08D) 3.1 g/dL 3.5-4.8 L GLOBULIN (test code = GLB) 4.1 g/dL 1.5-3.8 H ALB/GLOB (test code = AGRR) 0.8 1.0-2.6 L ALK PHOS (test code = 35A) 52 IU/L 42-121 AST (test code = 30A) 13 IU/L <=42 ALT (test code = 31A) 15 IU/L <=78 AMYLASE AND LIPASE *WW*2017-12-15 12:34:00 Test Item Value Reference Range Interpretation Comments AMYLASE (test code = 10A) 48 U/L 28-100 LIPASE (test code = 60A) 106 IU/L 73-393 URINALYSIS WITH MICRO *WW*2017-12-15 12:28:00 Test Item Value Reference Range Interpretation Comments COLOR (test code = COLU) YELLOW YELLOW CLARITY (test code = CLA) SLT HAZY CLEAR A GLUCOSE UR (test code = UA NEGATIVE NEGATIVE GLUCOSE) BILI UR (test code = BILE) NEGATIVE NEGATIVE KETONES UR (test code = CAPO) NEGATIVE NEGATIVE SP GRAVITY (test code = SPGR) 1.015 1.005-1.030 PH UR (test code = PH) 6.5 4.5-8.0 PROTEIN UR (test code = PU) NEGATIVE NEGATIVE UROBIL UR (test code = UROQ) 0.2 EU/dL 0.2-1.0 NITRITE UR (test code = NEGATIVE NEGATIVE NITRITE) BLOOD UR (test code = UA BLOOD) NEGATIVE NEGATIVE LEUK ES UR (test code = LEUK) TRACE NEGATIVE A WBC UR (test code = UWBC) 6 /HPF 0-5 H RBC UR (test code = URBC) 1 /HPF 0-2 EPITH UR (test code = UEPC) MODERATE /LPF FEW A BACTERIA UR (test code = UBACT) FEW /HPF NONE A CAST UR (test code = CAST) /LPF NONE CRYSTAL UR (test code = CRYU) / LPF NONE MUCUS UR (test code = MUC) / HPF NONE AMORPH UR (test code = PASTOR) / HPF NONE TRICH UR (test code = UTRICH) /HPF NONE YEAST UR (test code = UY) /HPF NONE SPERM UR (test code = USPERM) /HPF NONE CBC (INCLUDES AUTOMATED DIFFERENTIAL)*[id number] 12:23:00 Test Item Value Reference Range Interpretation Comments WBC (test code = WBC) 9.1 10\S\3/uL 4.5-11.0 RBC (test code = RBC) 3.64 10\S\6/uL 4.30-5.70 L HGB (test code = HBG) 10.9 g/dL 12.0-15.5 L HCT (test code = HCT) 32.0 % 35.0-44.0 L MCV (test code = MCV) 87.9 fL 81.0-99.0 MCH (test code = MCH) 29.9 pg 27.0-31.0 MCHC (test code = MCHC) 34.1 g/dL 32.0-36.0 RDW (test code = RDW) 12.4 % 11.5-14.5 PLT (test code = PLT) 225 10\S\3/uL 130-400 MPV (test code = MPV) 9.2 fL 9.4-12.4 L NEUTROP # (test code = NE#) 6.3 10\S\3/uL 1.6-8.0 LYMPH # (test code = LY#) 2.0 10\S\3/uL 1.1-3.5 MONOCYTE # (test code = MO#) 0.6 10\S\3/uL 0.0-1.1 EOSINOPH # (test code = EO#) 0.2 10\S\3/uL 0.0-0.7 BASOPHIL # (test code = BA#) 0.0 10\S\3/uL 0.0-0.3 IG # (test code = IG#) 0.03 10\S\3/uL 0.00-0.06 NRBC # (test code = NRBC#) 0.00 10\S\3/uL 0.00-0.01 NEUTROPH % (test code = NE%) 68.4 % 35.0-73.0 LYMPH % (test code = LY%) 22.1 % 20.0-55.0 MONO % (test code = MO%) 6.9 % 2.5-10.0 EOSINOPH % (test code = EO%) 2.0 % 0.0-5.0 BASOPHIL % (test code = BA%) 0.3 % 0.0-2.0 IG % (test code = IG%) 0.3 % 0.0-0.8 NRBC% (test code = NRBC%) 0.0 % 0.0-0.2 MANDIFF (test code = WMDIFF) NO NO RBC MORPH (test code = NORMAL WRBCMOR) U/S BIO-PHYSICAL PROFILE2017-12-15 11:53:18OBSTETRIC ULTRASOUND with Biophysical profileLocation code: [id number] HISTORY: well-beingGA by today's US: 21 weeks and 5 daysEDD by today's ultrasound: 04/22/2018Findings:There is a single intrauterine in breech presentation. Estimatedfetal heart rate is 152 beats per minute. Amniotic fluid index is 16.6 cm. Theplacenta is anterior with grade 1 changes. There is no evidence of previa orabruption. The cervix is closed and measures 4.0 cm. The maternal adnexa areunremarkable Umbilical S./D. ratio measures 3.0.Approximate sonographic age is 21 weeks and 5 days based upon the following:BPD 5.1 cm 21 weeks 4 daysHC 19.5 cm 21 weeks 5 daysAC 16.9 cm 21 weeks 6 daysFL 3.9 cm 22 weeks 5 days ratios are within normal limits. weight estimateWeight: 479 gramsWT%: 62% for 21 weeks and 5 daysAnatomic survey reveals no abnormality of the intracranial contents,four-chamber heart, stomach, bilateral kidneys, urinary bladder, 3 vessel cord,cord insertion, spine, and extremities.BIOPHYSICAL PROFILE: breathinGross body movement: 2Fetal tone: 2Amniotic fluid volume: 2IMPRESSION: 1. Single intrauterine in breech presentation with an approximatesonographic age of 21 weeks and 5 days. 2. Biophysical profile score of 8/8.3. No abnormality identified.U/S >14 WEEKS*NICK*2017-12-15 11:53:18OBSTETRIC ULTRASOUND with Biophysical profileLocation code: [id number] HISTORY: well-beingGA b y today's US: 21 weeks and 5 daysEDD by today's ultrasound: 04/22/2018Findings:There is a single intrauterine in breech presentation. Estimatedfetal heart rate is 152 beats per minute. Amniotic fluid index is 16.6 cm. Theplacenta is anterior with grade 1 changes. There is no evidence of previa orabruption. The cervix is closed and measures 4.0 cm. The maternal adnexa areunremarkable Umbilical S./D. ratio measures 3.0.Approximate sonographic age is 21 weeks and 5 days based upon the following:BPD 5.1 cm 21 weeks 4 daysHC 19.5 cm 21 weeks 5 daysAC 16.9 cm 21 weeks 6 daysFL 3.9 cm 22 weeks 5 days ratios are within normal limits. weight estimateWeight: 479 gramsWT%: 62% for 21 weeks and 5 daysAnatomic survey reveals no abnormality of the intracranial contents,four-chamber heart, stomach, bilateral kidneys, urinary bladder, 3 vessel cord,cord insertion, spine, and extremities.BIOPHYSICAL PROFILE: breathinGross body movement: 2Fetal tone: 2Amniotic fluid volume: 2
[2021-05-14] MEDS ORDERED: LABETALOL HCL 100 MG TAB ONE (00:43)
[2021-05-14] MEDS ORDERED: LABETALOL HCL 100 MG/20 ML ONE (00:43)
[2021-05-14] MEDS ORDERED: Magnesium Sulfate 2gm IVPB 4 G/100 ML BAG IV ONE (00:44)
[2021-05-14] MEDS ORDERED: NA CHLORIDE 0.9% 1,000 ML ONE (00:44)
[2021-05-14] MEDS ORDERED: hydroCHLOROthiazide 25 MG TAB ONE (00:45)
[2021-05-14 01:04] LABS: Protime INR 0.98
[2021-05-14 01:06] LABS: Hematocrit 34.7 % (36.0-45.0); Lymphocytes % 40.3 % (15.3-44.8); MPV 7.3 fL (7.6-11.3); RBC Red Blood Cell Count 4.08 M/uL (3.86-4.86)
[2021-05-14 02:50] LABS: Albumin 3.6 g/dL (3.4-5.0); Bilirubin Direct 0.1 mg/dL (0-0.2); Bilirubin Total 0.4 mg/dL (0.2-1.0); Protein, Total 7.3 g/dL (6.4-8.2); Troponin High Sensitivity 7.3 pg/mL (<58.9)
[2021-05-14 02:51] LABS: Magnesium 2.8 mg/dL (1.8-2.4); Potassium 3.9 mmol/L (3.5-5.1)
--- NOTE | 2021-05-14 03:09 | ER ---
Nurse's Notes [facility] Name: Domonique Ramos Age: 30 yrs Sex: Female : 1990 Arrival Date: 05/14/2021 Time: 00:05 Bed 7 Private MD: Diagnosis: Essential (primary) hypertension Presentation: 05/14 00:17 Chief complaint: Patient states: 5 weeks post and bp has been steadily lg3 increasing. currently takes labetalol 200 mg and amlodipine 10 mg. started the amlodipine today but has been on Procardia 50 mg previously. has had some increased anxiety due to loss of child as well. currently has chest tightness and headache. Coronavirus screen: At this time, unable to obtain information related to travel outside the [place] At this time, the client does not indicate any symptoms associated with coronavirus-19. Ebola Screen: No symptoms or risks identified at this time. Initial Sepsis Screen: Does the patient meet any 2 criteria? No. Patient's initial sepsis screen is negative. Does the patient have a suspected source of infection? No. Patient's initial sepsis screen is negative. Risk Assessment: Do you want to hurt yourself or someone else? Patient reports no desire to harm self or others. Onset of symptoms was May 14, 2021. 00:17 Method Of Arrival: Ambulatory lg3 00:17 Acuity: JERI 3 lg3 Triage Assessment: 00:21 General: Appears in no apparent distress. comfortable, Behavior is calm, cooperative. lg3 Pain: Complains of pain in headache Pain currently is 4 out of 10 on a pain scale. EENT: No deficits noted. No signs and/or symptoms were reported regarding the EENT system. Neuro: No deficits noted. Level of Consciousness is awake, alert, obeys commands, Oriented to person, place, time, situation. Cardiovascular: Reports chest tightness Capillary refill < 3 seconds Clubbing of nail beds is absent JVD is absent Patient's skin is warm and dry. Respiratory: No deficits noted. Airway is patent Trachea midline Respiratory effort is even, unlabored, Respiratory pattern is regular, symmetrical. GI: No deficits noted. No signs and/or symptoms were reported involving the gastrointestinal system. : No deficits noted. No signs and/or symptoms were reported regarding the genitourinary system. Derm: No deficits noted. No signs and/or symptoms reported regarding the dermatologic system. Skin is intact, is healthy with good turgor, Skin is dry. Musculoskeletal: No deficits noted. No signs and/or symptoms reported regarding the musculoskeletal system. Circulation, motion, and sensation intact. Range of motion: intact in all extremities. 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 - Social history:: Smoking status: Patient denies any tobacco usage or history of. Patient uses alcohol, occasionally. - Family history:: not pertinent. Screenin:24 Abuse screen: Denies threats or abuse. Denies injuries from another. Nutritional lg3 screening: No deficits noted. Tuberculosis screening: No symptoms or risk factors identified. Fall Risk None identified. Assessment: 00:54 Reassessment: please see triage assessment. st1 Vital Signs: 00:17 BP 202 / 116; Pulse 66; Resp 16 S; Temp 98.7; Pulse Ox 100% on R/A; Weight 78.47 kg lg3 (R); Height 5 ft. (152.40 cm) (R); Pain 4/10; 00:45 BP 196 / 116; Pulse 63; Resp 16; Pulse Ox 100% on R/A; st1 00:52 BP 190 / 116; Pulse 62; Resp 16; Pulse Ox 100% on R/A; st1 01:00 BP 191 / 115; Pulse 60; Resp 21; Pulse Ox 100% on R/A; st1 01:34 BP 165 / 110; Pulse 66; Resp 16; Pulse Ox 100% on R/A; st1 02:23 BP 137 / 96; Pulse 73; Resp 16; Pulse Ox 100% on R/A; st1 03:12 BP 133 / 89; Pulse 75; Resp 16; Pulse Ox 100% on R/A; Pain 0/10; st1 00:17 Body Mass Index 33.79 (78.47 kg, 152.40 cm) lg3 ED Course: 00:05 Patient arrived in ED. kz 00:21 Triage completed. lg3 00:21 Arm band placed on right wrist. lg3 00:28 Aayush Griffin MD is Attending Physician. lore 00:37 Jared Avilez, CRISTAL is Primary Nurse. as6 00:42 Inserted saline lock: 20 gauge in right antecubital area, using aseptic technique. st1 00:43 Troponin HS Sent. st1 00:43 Magnesium Sent. st1 00:43 LFT's Sent. st1 00:43 CBC with Diff Sent. st1 00:43 Basic Metabolic Panel Sent. st1 00:43 NT PRO-BNP Sent. st1 00:43 PT-INR Sent. st1 00:48 XRAY Chest (1 view) In Process Unspecified. EDMS 00:54 Patient has correct armband on for positive identification. Bed in low position. Call st1 light in reach. Side rails up X 1. teletypesetter monitor on. Pulse ox on. NIBP on. Lights dimmed. Verbal reassurance given. Head of bed elevated. 00:56 No provider procedures requiring assistance completed. st1 03:08 Scott Bowers MD is Referral Physician. jr8 03:13 IV discontinued, intact, bleeding controlled, No redness/swelling at site. Pressure st1 dressing applied. Administered Medications: 00:53 Drug: NS 0.9% 1000 ml Route: IV; Rate: 75 ml/hr; Site: right antecubital; st1 03:13 Follow up: IV Status: Order to discontinue infusion; IV Intake: 300ml st1 00:53 Drug: Labetalol 40 mg Route: IVP; Infused Over: 2 mins; Site: right antecubital; st1 01:37 Follow up: Response: No adverse reaction; Blood pressure is lowered st1 00:53 Drug: Labetalol 200 mg Route: PO; st1 01:37 Follow up: Response: No adverse reaction; Blood pressure is lowered st1 00:53 Drug: Magnesium Sulfate 4 grams Route: IVPB; Infused Over: 2 hrs; Site: right st1 antecubital; 02:56 Follow up: Response: No adverse reaction; IV Status: Completed infusion st1 00:54 Drug: Hydrochlorothiazide 25 mg Route: PO; st1 01:38 Follow up: Response: No adverse reaction; Blood pressure is lowered st1 Intake: 03:13 IV: 300ml; Total: 300ml. st1 Outcome: 03:08 Discharge ordered by . jr8 03:13 Discharged to home ambulatory. st1 03:13 Condition: good 03:13 Discharge instructions given to patient, Instructed on discharge instructions, follow up and referral plans. medication usage, Demonstrated understanding of instructions, follow-up care, medications, Prescriptions given X 4. 03:17 Patient left the ED. as6 Signatures: Dispatcher [employer] EDMS Aayush Griffin MD MD cha Roszak, Josh, PA PA jr8 Padmini Muñiz RN RN lg3 Jared Avilez RN RN as6 Rekha Butts RN RN st1 Taya Davenport Corrections: (The following items were deleted from the chart) 01:21 00:55 BP 196 / 116; Pulse 63bpm; Resp 16bpm; Pulse Ox 100% RA; st1 st1
--- NOTE | 2021-05-14 03:09 | EDPHYS ---
Physician Documentation [facility] Name: Domonique Ramos Age: 30 yrs Sex: Female : 1990 Arrival Date: 05/14/2021 Time: 00:05 Bed 7 Private MD: CHARLIE Physician Aayush Griffin HPI: 05/14 00:41 This 30 yrs old Black Female presents to ER via Ambulatory with complaints of High lore Blood Pressure. 00:41 The patient has elevated blood pressure and discovered this at home. Onset: The lore symptoms/episode began/occurred 5 week(s) ago. Modifying factors: The symptoms are aggravated by activity, The symptoms are alleviated by OTC meds. Associated signs and symptoms: The patient has no apparent associated signs or symptoms. Severity of symptoms: At its worst the blood pressure was moderate, in the emergency department the blood pressure is unchanged. The patient has experienced similar episodes in the past, chronically. 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 - Social history:: Smoking status: Patient denies any tobacco usage or history of. Patient uses alcohol, occasionally. - Family history:: not pertinent. ROS: 00:41 Constitutional: Negative for fever, chills, and weight loss, Eyes: Negative for injury, lore pain, redness, and discharge, ENT: Negative for injury, pain, and discharge, Neck: Negative for injury, pain, and swelling, Respiratory: Negative for shortness of breath, cough, wheezing, and pleuritic chest pain, Abdomen/GI: Negative for abdominal pain, nausea, vomiting, diarrhea, and constipation, Back: Negative for injury and pain, : Negative for injury, bleeding, discharge, and swelling, MS/Extremity: Negative for injury and deformity, Skin: Negative for injury, rash, and discoloration, Neuro: Negative for headache, weakness, numbness, tingling, and seizure, Psych: Negative for depression, anxiety, suicide ideation, homicidal ideation, and hallucinations, Allergy/Immunology: Negative for hives, rash, and allergies, Endocrine: Negative for neck swelling, polydipsia, polyuria, polyphagia, and marked weight changes, Hematologic/Lymphatic: Negative for swollen nodes, abnormal bleeding, and unusual bruising. 00:41 Cardiovascular: Positive for chest pain. Exam: 00:41 Constitutional: This is a well developed, well nourished patient who is awake, alert, lore and in no acute distress. Head/Face: Normocephalic, atraumatic. Eyes: Pupils equal round and reactive to light, extra-ocular motions intact. Lids and lashes normal. Conjunctiva and sclera are non-icteric and not injected. Cornea within normal limits. Periorbital areas with no swelling, redness, or edema. ENT: Nares patent. No nasal discharge, no septal abnormalities noted. Tympanic membranes are normal and external auditory canals are clear. Oropharynx with no redness, swelling, or masses, exudates, or evidence of obstruction, uvula midline. Mucous membranes moist. Neck: Trachea midline, no thyromegaly or masses palpated, and no cervical lymphadenopathy. Supple, full range of motion without nuchal rigidity, or vertebral point tenderness. No Meningismus. Chest/axilla: Normal chest wall appearance and motion. Nontender with no deformity. No lesions are appreciated. Cardiovascular: Regular rate and rhythm with a normal S1 and S2. No gallops, murmurs, or rubs. Normal PMI, no JVD. No pulse deficits. Respiratory: Lungs have equal breath sounds bilaterally, clear to auscultation and percussion. No rales, rhonchi or wheezes noted. No increased work of breathing, no retractions or nasal flaring. Abdomen/GI: Soft, non-tender, with normal bowel sounds. No distension or tympany. No guarding or rebound. No evidence of tenderness throughout. Back: No spinal tenderness. No costovertebral tenderness. Full range of motion. Pelvic Exam: Normal external genitalia. Speculum exam with closed cervical os, no discharge or bleeding noted. Bimanual exam with normal adnexa, no adnexal or cervical motion tenderness. Normal uterus. Female : Normal external genitalia. Skin: Warm, dry with normal turgor. Normal color with no rashes, no lesions, and no evidence of cellulitis. MS/ Extremity: Pulses equal, no cyanosis. Neurovascular intact. Full, normal range of motion. Neuro: Awake and alert, GCS 15, oriented to person, place, time, and situation. Cranial nerves II-XII grossly intact. Motor strength 5/5 in all extremities. Sensory grossly intact. Cerebellar exam normal. Normal gait. Psych: Awake, alert, with orientation to person, place and time. Behavior, mood, and affect are within normal limits. 00:41 Musculoskeletal/extremity: DVT Exam: No signs of deep vein thrombosis. no pain, no swelling, no tenderness, negative Homans' sign noted on exam, no appreciated bluish discoloration, no erythema, no increased warmth. 01:04 ECG was reviewed by the Attending Physician. [facility] Vital Signs: 00:17 BP 202 / 116; Pulse 66; Resp 16 S; Temp 98.7; Pulse Ox 100% on R/A; Weight 78.47 kg lg3 (R); Height 5 ft. (152.40 cm) (R); Pain 4/10; 00:45 BP 196 / 116; Pulse 63; Resp 16; Pulse Ox 100% on R/A; st1 00:52 BP 190 / 116; Pulse 62; Resp 16; Pulse Ox 100% on R/A; st1 01:00 BP 191 / 115; Pulse 60; Resp 21; Pulse Ox 100% on R/A; st1 01:34 BP 165 / 110; Pulse 66; Resp 16; Pulse Ox 100% on R/A; st1 02:23 BP 137 / 96; Pulse 73; Resp 16; Pulse Ox 100% on R/A; st1 03:12 BP 133 / 89; Pulse 75; Resp 16; Pulse Ox 100% on R/A; Pain 0/10; st1 00:17 Body Mass Index 33.79 (78.47 kg, 152.40 cm) lg3 MDM: 00:28 Patient medically screened. [facility] 00:42 Data reviewed: vital signs, nurses notes, lab test result(s), EKG, radiologic studies, [facility] plain films. Data interpreted: trim mounter: rate is 66 beats/min, rhythm is regular, Pulse oximetry: on room air is 100 %. Test interpretation: by ED physician or midlevel provider: ECG, plain radiologic studies. Counseling: I had a detailed discussion with the patient and/or guardian regarding: the historical points, exam findings, and any diagnostic results supporting the discharge/admit diagnosis, the presence of at least one elevated blood pressure reading (>120/80) during this emergency department visit, lab results, radiology results, the need for outpatient follow up, for definitive care, a clinical services consultant, a family practitioner. 05/14 00:29 Order name: Basic Metabolic Panel; Complete Time: 03:08 [facility] 05/14 00:29 Order name: CBC with Diff; Complete Time: :46 [facility] 05/14 00:29 Order name: LFT's; Complete Time: 03:08 [facility] 05/14 00:29 Order name: Magnesium; Complete Time: 03:08 [facility] 05/14 00:29 Order name: NT PRO-BNP; Complete Time: 03:08 [facility] 05/14 00:29 Order name: PT-INR; Complete Time: :46 [facility] 05/14 00:29 Order name: Troponin HS; Complete Time: 03:08 [facility] 05/14 00:29 Order name: XRAY Chest (1 view) [facility] 05/14 00:29 Order name: EKG; Complete Time: 00:31 [facility] 05/14 00:29 Order name: Cardiac monitoring; Complete Time: 00:37 [facility] 05/14 00:29 Order name: EKG - Nurse/Tech; Complete Time: 00:54 [facility] 05/14 00:29 Order name: IV Saline Lock; Complete Time: 00:43 [facility] 05/14 00:29 Order name: Labs collected and sent; Complete Time: 00:43 [facility] 05/14 00:29 Order name: O2 Per Protocol; Complete Time: 00:37 [facility] 05/14 00:29 Order name: O2 Sat Monitoring; Complete Time: 00:37 [facility] EC:04 Rate is 60 beats/min. Rhythm is regular. QRS [place] is Normal. [place] interval is normal. QRS lore interval is normal. QT interval is normal. No Q waves. T waves are Normal. No ST changes noted. Clinical impression: Normal ECG and No evidence of ischemia. Interpreted by me. Reviewed by me. Administered Medications: 00:53 Drug: NS 0.9% 1000 ml Route: IV; Rate: 75 ml/hr; Site: right antecubital; st1 03:13 Follow up: IV Status: Order to discontinue infusion; IV Intake: 300ml st1 00:53 Drug: Labetalol 40 mg Route: IVP; Infused Over: 2 mins; Site: right antecubital; st1 01:37 Follow up: Response: No adverse reaction; Blood pressure is lowered st1 00:53 Drug: Labetalol 200 mg Route: PO; st1 01:37 Follow up: Response: No adverse reaction; Blood pressure is lowered st1 00:53 Drug: Magnesium Sulfate 4 grams Route: IVPB; Infused Over: 2 hrs; Site: right st1 antecubital; 02:56 Follow up: Response: No adverse reaction; IV Status: Completed infusion st1 00:54 Drug: Hydrochlorothiazide 25 mg Route: PO; st1 01:38 Follow up: Response: No adverse reaction; Blood pressure is lowered st1 Disposition Summary: 05/14/21 03:08 Discharge Ordered Location: Home jr8 Problem: new jr8 Symptoms: have improved jr8 Condition: Stable jr8 Diagnosis - Essential (primary) hypertension jr8 Followup: lore - With: Private Physician - When: 2 - 3 days - Reason: Recheck today's complaints, Re-evaluation by your physician Followup: lore - With: - When: 2 - 3 days - Reason: Recheck today's complaints, Re-evaluation by your physician Discharge Instructions: - Discharge Summary Sheet lore - Hypertension, Adult lore - Hypertension, Adult, [id number] lore - How to Take Your Blood Pressure, [id number] lore - Aspirin and Your Heart lore - Managing Your Hypertension lore Forms: - Medication Reconciliation Form jr8 - Thank You Letter jr8 - Antibiotic Education jr8 - Prescription Opioid Use jr8 Prescriptions: - Norvasc 10 mg Oral Tablet - take 1 tablet by ORAL route once daily; 30 tablet; Refills: 0, Product lore Selection Permitted - Hydrochlorothiazide 25 mg Oral Tablet - take 1 tablet by ORAL route once daily .; 30 tablet; Refills: 0, Product lore Selection Permitted - Potassium Chloride 20 meq Oral Packet - take 1 packet by ORAL route once daily 1 packet in 6 (six) ounces of water or lore juice; Take after meal; 30 packet; Refills: 0, Product Selection Permitted - labetalol 200 mg Oral tablet - take 1 tablet by ORAL route 2 times per day; 40 tablet; Refills: 0, Product jr8 Selection Permitted Signatures: Dispatcher [employer] Aayush Wlils MD MD cha Roszak, Josh, PA PA jr8 Padmini Muñiz, RN RN lg3 Rekha Butts RN RN st1
[2021-05-14 03:30] VITALS: TEMP 98.7; O2SAT 100
[2021-05-14 03:38] VITALS: BP 133/89
--- NOTE | 2021-05-14 11:39 | RAD REPORT ---
EXAM DESCRIPTION: RAD - Chest Single View - 05/14/2021 12:47 am CLINICAL HISTORY: 30 years Female, CHEST PAIN COMPARISON: None. TECHNIQUE: Single portable x-ray view of the chest performed on 05/14/2021 at 12:43 AM FINDINGS: The lungs are well expanded and are clear. There is no evidence of a pneumothorax. The cardiac silhouette is normal in size and configuration. The mediastinal contours are normal. No acute osseous abnormality is identified. No acute soft tissue abnormalities are seen. Lines and tubes: None. Free air: None IMPRESSION: No evidence of acute intrathoracic disease. Electronically signed by: Danika Zaidi DO 05/14/2021 1:00 AM CDT Due to temporary technical issues with the PACS/Fluency reporting system, reports are being signed by the in house radiologist without review as a courtesy to ensure prompt reporting. The interpreting r adiologist is fully responsible for the content of the report.
--- NOTE | 2021-05-18 11:27 | EKG ---
Test Date: 2021-05-14 Test Time: 00:53:48 Process Project Engineer: MEASUREMENT RESULTS: Intervals: Rate: 60 DE: 202 QRSD: 80 QT: 416 QTc: 416 [place]: P: 51 DE: 202 QRS: 26 T: 45 INTERPRETIVE STATEMENTS: Normal sinus rhythm Normal ECG No previous ECG available for comparison Electronically Signed On 05-18-21 11:14:27 CDT by Scott Bowers
== END 2021-05-14 03:17 | disposition home or self-care (01) ==
LOC: ER 23:49
DX: I10 Essential (primary) hypertension (principal)
CPT/HCPCS: 96365; 93005; 85025; 80048; 36415; 83735; 85610; 80076; 84484; 83880; 71045; 96375; 99284; 96366; J3475; J7030

== ENCOUNTER 2024-04-14 15:32 | Emergency (ER) | payer BC ==
--- OUTSIDE RECORDS SUMMARY | 2024-04-14 15:36 | XMS REPORT | Continuity of Care Document ---
Author Name Unknown Address [address] [facility] [address]. [address] [place] [address] [facility] thconnect Address [address] [facility]. [address] [place] [address] Care Team Providers Care Health And Human Performance Professor Name Role Phone Shahnaz Shah NP Primary Care Physician + [phone] FRANK GOMEZ Attending Clinician TYLER Medrano Attending Clinician Fozia Gomez MD, Tyler Marquez Attending Clinician [phone] Ann Clarke MD Attending Clinician [phone] ANN CLARKE Attending Clinician VICENTE Ross Attending Clinician Luis CLARKE, DR ANN CÁRDENAS Attending Clinician DR ROBINSON Sierra Attending Clinician Kuldeep HAM, DR FRANK ROD Attending Clinici an FRANK Arzola Admitting Clinician ANN Navarro Admitting Clinician Jane CLARKE, DR ANN CÁRDENAS Admitting Clinician DR ROBINSON Sierra Admitting Clinician Kuldeep HAM, DR FRANK ROD Admitting Clinici an Unavailable Payers Payer Name Policy Type Policy Number Effective Date Expirati on Date Source BLUE ADVANTAGE HMO/PLUS Exchange [id number] 2023 00:00:00 0453 [id number] 2021 00:00:00 Allergies, Adverse Reactions, Alerts Allergy Name Allergy Type Status Severity Reaction(s) Onset Date Inactive Date Treating Clinician Comments Source No Known Allergie s DA Active [facility] Social History Social Habit Start Date Stop Date Quantity Comments Source Gender identity 2023-05-07 15:58:26 Identifies as female gender (finding) [facility] ASSERTION Possible [facility] Sexual orientation [facility] Alcoholic beverage intake 2024-04-04 00:00:00 2024-04-04 00:00:00 Lifetime non-drinker (finding) [facility] History of Social function 2024-04-04 00:00:00 2024-04-04 00:00:00 [facility] Smoking Status Start Date Stop Date Source Never smoked tobacco [facility] Medications Ordered Medication Name Filled Medication Name Start Date Stop Date Current Medication? Ordering Clinician Indication Dosage Frequency Signature (SIG) Comments Components Source labetalol (Normodyne) 200 MG tablet labetalol (Normodyne) 200 MG tablet 04-04 00:00: 00 04-04 23:59 :00 No 200mg [id number] 3D Take 1 tablet by mouth in the morning and 1 tablet at noon and 1 tablet in the evening. Obdulio Troy [facility] traZODone (Desyrel) 100 MG tablet traZODone (Desyrel) 100 MG tablet 2-08 00:00: 00 Yes 100mg Take 100 mg by mouth. Obdulio Troy [facility] sertraline (Zoloft) 50 MG tablet sertraline (Zoloft) 50 MG tablet 2-05 00:00: 00 Yes 1{tbl} QD Take 1 tablet by mouth 1 time each day. Obdulio Troy [facility] labetalol (Normodyne) 200 MG tablet labetalol (Normodyne) 200 MG tablet 2024-0 9-11 00:00: 00 04-04 00:00 :00 No 200mg Q.5D TAKE 1 TABLET BY MOUTH TWICE DAILY Obdulio Troy [facility] amLODIPine (Norvasc) 10 MG tablet amLODIPine (Norvasc) 10 MG tablet 8-15 00:00: 00 04-04 00:00 :00 No 10mg QD TAKE 1 TABLET BY MOUTH EVERY DAY Obdulio Troy [facility] losartan-hy droCHLOROth iazide (Hyzaar) 50-12.5 MG tablet losartan-hy droCHLOROth iazide (Hyzaar) 50-12.5 MG tablet 5-15 00:00: 00 Yes 1{tbl} Q.5D Take 1 tablet by mouth in the morning and 1 tablet in the evening. Obdulio Troy [facility] Vital Signs Vital Name Observation Time Observation Value Comments Didi hyde Systolic blood pressure 2024-04-04 10:29:00 112 mm[Hg] [facility] Diastolic blood pressure 2024-04-04 10:29:00 82 mm[Hg] [facility] Heart rate 2024-04-04 10:29:00 83 /min [facility] Body height 2024-04-04 10:29:00 152.4 cm [facility] Body weight 2024-04-04 10:29:00 95.8 kg [facility] BMI 2024-04-04 10:29:00 41.25 kg/m2 [facility] Oxygen saturation in Arterial blood by Pulse oximetry 2024-04-04 10:29:00 99 /min [facility] Systolic blood pressure 2024-04-04 10:29:00 112 mm[Hg] [facility] Diastolic blood pressure 2024-04-04 10:29:00 82 mm[Hg] [facility] Heart rate 2024-04-04 10:29:00 83 /min [facility] Body height 2024-04-04 10:29:00 152.4 cm [facility] Body weight 2024-04-04 10:29:00 95.8 kg [facility] BMI 2024-04-04 10:29:00 41.25 kg/m2 [facility] Oxygen saturation in Arterial blood by Pulse oximetry 2024-04-04 10:29:00 99 /min Marcus nava [facility] Height 2021-04-10 12:04:00 149.86 CM Weight 2021-04-10 12:04:00 87.99 KG Procedures Procedure Date / Time Performed Performing Clinicia n Source DELIVERY PRODUCTS OF CONCEPTION EXT 2021-04-11 00:00:00 [facility] INTRO HORMONE FE REPR CRISTINA/ART OPEN 2021-04-10 00:00:00 [facility] Encounters Start Date/Time End Date/Time Encounter Type Admission Type Attending Clinicians Care Facility Care Department Encounter ID Source 2018-04-17 09:30:00 Inpatient C FRANK GOMEZ [facility] [id number] [facility] 2018-04-10 09:30:00 Inpatient C FRANK GOMEZ [facility] [id number] [facility] 2024-04-04 10:27:20 2024-04-04 11:17:31 Outpatient TYLER GOMEZ [facility] [id number] [facility] 2024-04-04 10:15:00 2024-04-04 11:17:31 Office Visit Gomez [facility] 925 [id number] Obdulio vann [facility] 2023-10-23 00:00:00 2023-10-26 14:31:07 Refill Jason [facility] 925 [id number] [facility]23-[facility]26 00:00:00 2023 11:15:49 Refill Jason [facility] 925 [id number] [facility] 2023-09-22 00:00:00 2023-09-22 10:18:20 ZaidDarlin Arzatethia [facility] [id number] Obdulio Leblanc 2022-02-12 00:37:00 2022-02-15 17:35:00 Inpatient ANN CLARKE [facility] [id number] [facility] 2022-02-06 12:30:00 2022-02-06 15:37:00 Emergency E VICENTE DALAL [facility] [id number] [facility] 2022-02-02 18:23:00 2022-02-03 18:40:00 Inpatient ANN SOLER FB FB [id number] [facility] 2021-01-15 09:30:00 2021-01-15 23:59:00 Outpatient Alfa ANN CLARKE [facility] [id number] [facility] 2018-04-08 20:23:00 2018-04-11 13:44:00 Outpatient ANN BROWNLEE [facility] [id number] [facility] 2018-04-04 09:00:00 2018-04-06 16:29:00 Inpatient ROIBNSON GONSALEZ [facility] [id number] [facility] 2018-04-03 09:50:00 2018-04-03 14:47:00 Outpatient ROBINSON THOMPSON [facility] [id number] [facility] 2018-03-27 10:03:00 2018-03-27 11:39:00 Outpatient ROBINSON THOMPSON [facility] [id number] [facility] 2018-03-21 10:46:00 2018-03-21 16:31:00 Outpatient ROBINSON THOMPSON [facility] [id number] [facility] 2018-03-20 10:10:00 2018-03-20 12:18:00 Outpatient ROBINSON THOMPSON [facility] [id number] [facility] 2018-03-13 10:10:00 2018-03-13 11:30:00 Outpatient FRANK CHUNG [facility] [id number] [facility] 2018-03-06 09:58:00 2018-03-06 17:30:00 Outpatient FRANK CHUNG [facility] [id number] [facility] 2018-03-03 09:55:00 2018-03-03 10:35:00 Outpatient FRANK CHUNG [facility] [id number] [facility] 2018-02-28 10:39:00 2018-02-28 14:59:00 Outpatient FRANK CHUNG [facility] [id number] [facility] 2017-12-17 08:52:00 2017-12-17 12:12:00 Inpatient ROBINSON THOMPSON [facility] [id number] [facility] Results Test Description Test Time Test Comments Results Result Co mments Source HERPES IGM *WW*2021-04-17 13:52:00* Test Item Value Reference Range Interpretation Comme nts HSV 1 IGM SCREEN (test code = 34537403) NEGATIVE HSV 2 IGM SCREEN (test code = 36814407) NEGATIVE REFERENCE RANGE: NEGATIVEThe IFA procedure for measuring IgM antibodies to HSV 1and HSV 2 detects both type-common and type- specificHSV antibodies. Thus, IgM reactivity to both HSV 1and HSV 2 may represent crossreactive HSV antibodiesrather than exposure to both HSV 1 and HSV 2.This test was developed and its analytical performancecharacteristics have been determined by [employer].It has not been cleared or approved by FDA. This assay hasbeen validated pursuant to the CLIA regulations and isused for clinical purposes.TEST PERFORMED AT:[email or web address] [place] [address]CIXTJARTI GARCIA MD,PHD,KIMBER RUBELLA IGM ANTIBODY WW2021-04-17 13:14:00* Test Item Value Reference Range Interpretation Comme nts RUBELLA ANTIBODY (IGM) (test code = 89591463) <20.00 AU/mL AU/mL Interpreta tion ----- <20.00 Negative 20.00-24.99 Equivocal > or = 25.00 PositiveTEST PERFORMED AT:[email or web address] [facility].[place] [address]VEWXKADANIELE KAUR MD WOUND/SKIN/ABS.&GRAMSTAIN [id number] 12:26:00* Test Item Value Reference Range Interpretation Comme nts Culture Observations (test code = COB1) NO GROWTH AFTER 3 DAYS Direct Exam (test code = DE1) RARE WHITE BLOOD CELLS SEEN Direct Exam (test code = DE2) NO ORGANISMS SEEN Isolate 1 (test code = ISO1) STREP VIRIDANS ANAEROBIC [id number] 12:24:00* Test Item Value Reference Range Interpretation Comme nts Culture Observations (test code = COB1) NO ANAEROBES ISOLATED AT 5 DAYS. CULTURE HELD FOR 5 DAYS WOUND/SKIN/ABS.&GRAMSTAIN [id number] 09:47:00* Test Item Value Reference Range Interpretation Comme nts Direct Exam (test code = DE1) RARE WHITE BLOOD CELLS SEEN Direct Exam (test code = DE2) NO ORGANISMS SEEN Isolate 1 (test code = ISO1) Streptococcus gallolyticus ssp pasteurianus benzylpenicillin (test code = tameka) ug/mL S ampicillin (test code = am) ug/mL S cefotaxime 1 (test code = tax) ug/mL S ceftriaxone1 (test code = ctr) ug/mL S levofloxacin (test code = lev) ug/mL S erythromycin (test code = e) ug/mL S clindamycin (test code = cc) ug/mL S linezolid (test code = lnz) ug/mL S vancomycin (test code = va) ug/mL S tetracycline (test code = tet) ug/mL R PARVO B-19 IgG/IgM WW2021-04-15 20:34:00* Test Item Value Reference Range Interpretation Comme nts Parvovirus B19 Antibody, IgG (test code = 54220992) 5.0 H REFERENCE RANGE : <0.9INTERPRETIVE CRITERIA: <0.9 Negative 0.9 - 1.1 Equivocal >1.1 PositiveIgG persists for years and provides life-longimmunity. To diagnose current infection, considerParvovirus B19 DNA, PCR.TEST PERFORMED AT:[employer] [id number] [place] [address]YUKUOARTI GARCIA MD,PHD,KIMBER Parvovirus B19 Antibody, IgM (test code = 06448869) 0.2 REFERENCE RANGE : <0.9INTERPRETIVE CRITERIA: <0.9 Negative 0.9 - 1.1 Equivocal >1.1 PositiveResults from any one IgM assay should not be usedas a sole determinant of a current or recentinfection. Because IgM tests can yield falsepositive results and low levels of IgM antibodymay persist for months post infection, reliance sun single test result could be misleading. If anacute infection is suspected, consider obtaininga new specimen and submit for both IgG and IgMtesting in two or more weeks. To diagnose currentinfection, consider Parvovirus B19 DNA, PCR.TEST PERFORMED AT:[employer] [id number] [facility] [address]TATCYARTI GARCIA MD,PHD,KIMBER TOXOPLASMA IGM 2021-04-14 21:37:00* Test Item Value Reference Range Interpretation Comme [facility] TOXOPLASMA IGM ANTIBODY (test code = 87497168) <8.00 AU/mL AU/mL Interpreta tion ----- <8.00 Negative 8.00-9.99 Equivocal >9.99 PositiveTEST PERFORMED AT:[email or web address] [place] [address].[place] [address]EMQQGXDANIELE KAUR MD TOXOPLASMA IGG 2021-04-14 21:37:00* Test Item Value Reference Range Interpretation Comme [facility] TOXOPLASMA IGG ANTIBODY (test code = 32460999) <7.20 IU/mL IU/mL Interpreta tion ------ <7.20 Negative 7.20-8.79 Equivocal >8.79 PositiveTEST PERFORMED AT:[email or web address] [place], [place] [address] [address]ZRZMULDANIELE KAUR MD CYTOMEGALOVIRUS IGG 2021-04-14 21:36:00* Test Item Value Reference Range Interpretation Comme [facility] CYTOMEGALOVIRUS ANTIBODY (IGG) (test code = 88935797) 8.90 U/mL H U/mL Interpreta tion ----- <0.60 Negative 0.60-0.69 Equivocal > or = 0.70 PositiveA positive result indicates that the patient hasantibody to CMV. It does not differentiate betweenan active or past infection.TEST PERFORMED AT:[email or web address] [address] [facility] [place] [address]XFUWPBDANIELE KAUR MD CYTOMEGALOVIRUS IGM 2021-04-14 21:36:00* Test Item Value Reference Range Interpretation Comme [facility] CYTOMEGALOVIRUS ANTIBODY (IGM) (test code = 03629939) <30.00 AU/mL AU/mL Interpretation ----- <30.00 No Antibody Detected 30.00-34.99 Equivocal > or = 35.00 Antibody DetectedResults from any one IgM assay should not be used as asole determinant of a current or recent infection.Because an IgM test can yield false positive results andlow level IgM antibody may persist for more than 12months post infection, reliance on a single test resultcould be misleading. Acute infection is best diagnosedby demonstrating the conversion of IgG from negative topositive. If an acute infection is suspected, considerobtaining a new specimen and submit for both IgG and IgMtesting in two or more weeks.TEST PERFORMED AT:[email or web address] [place] [address]LEAJOWDANIELE KAUR MD HERPES I TITER IGG 2021-04-14 21:36:00* Test Item Value Reference Range Interpretation Comme [facility] HSV 1 IgG, HERPESELECT TYPE SPECIFIC AB (test code = 15910913) 39.20 index H Index Interpret ation ----- <0.90 Negative 0.90-1.09 Equivocal >1.09 PositiveThis assay utilizes recombinant type-specific antigensto differentiate HSV-1 from HSV-2 infections. Apositive result cannot distinguish between recent andpast infection. If recent HSV infection is suspectedbut the results are negative or equivocal, the assayshould be repeated in 4-6 weeks. The performancecharacteristi cs of the assay have not been establishedfor pediatric populations, immunocompromised patients,or screening.TEST PERFORMED AT:[email or web address] [facility].[place] [address]BEECUKDANIELE KAUR MD HERPES II TITER IGG *WW*2021-04-14 08:48:00* Test Item Value Reference Range Interpretation Comme [facility] HSV 2 IGG HERPESELECT TYPE SPECIFIC AB (test code = 93532590) 20.10 index H Index Interpret ation ----- <0.90 Negative 0.90-1.09 Equivocal >1.09 PositiveThis assay utilizes recombinant type-specific antigensto differentiate HSV-1 from HSV-2 infections. Apositive result cannot distinguish between recent andpast infection. If recent HSV infection is suspectedbut the results are negative or equivocal, the assayshould be repeated in 4-6 weeks. The performancecharacteristi cs of the assay have not been establishedfor pediatric populations, immunocompromised patients,or screening.TEST PERFORMED AT:[email or web address] [facility].[place] [address]MIFEXSDANIELE KAUR MD CBC (INCLUDES AUTOMATED DIFFERENTIAL)*[id number] 09:04:00* Test Item Value Reference Range Interpretation Comme nts WBC (test code = WBC) 9.8 10\\S\\3/uL 4.5-11.0 RBC (test code = RBC) 3.35 10\\S\\6/uL 4.30-5.70 L HGB (test code = HBG) 9.8 g/dL 12.0-15.5 L HCT (test code = HCT) 29.0 % 35.0-44.0 L MCV (test code = MCV) 86.6 fL 81.0-99.0 MCH (test code = MCH) 29.3 pg 27.0-31.0 MCHC (test code = MCHC) 33.8 g/dL 32.0-36.0 RDW (test code = RDW) 12.4 % 11.5-14.5 PLT (test code = PLT) 201 10\\S\\3/uL 130-400 MPV (test code = MPV) 10.9 fL 9.4-12.4 NEUTROP # (test code = NE#) 6.7 10\\S\\3/uL 1.6-8.0 LYMPH # (test code = LY#) 1.9 10\\S\\3/uL 1.1-3.5 MONOCYTE # (test code = MO#) 0.9 10\\S\\3/uL 0.0-1.1 EOSINOPH # (test code = EO#) 0.2 10\\S\\3/uL 0.0-0.7 BASOPHIL # (test code = BA#) 0.0 10\\S\\3/uL 0.0-0.3 IG # (test code = IG#) 0.05 10\\S\\3/uL 0.00-0.06 NRBC # (test code = NRBC#) 0.00 10\\S\\3/uL 0.00-0.01 NEUTROPH % (test code = NE%) [...] NO NO RBC MORPH (test code = WRBCMOR) NORMAL CBC (INCLUDES AUTOMATED DIFFERENTIAL)*[id number] 05:59:00* Test Item Value Reference Range Interpretation Comme nts WBC (test code = WBC) 17.0 10\\S\\3/uL 4.5-11.0 H RBC (test code = RBC) 3.54 10\\S\\6/uL 4.30-5.70 L HGB (test code = HBG) 10.5 g/dL 12.0-15.5 L HCT (test code = HCT) 30.6 % 35.0-44.0 L MCV (test code = MCV) 86.4 fL 81.0-99.0 MCH (test code = MCH) 29.7 pg 27.0-31.0 MCHC (test code = MCHC) 34.3 g/dL 32.0-36.0 RDW (test code = RDW) 12.5 % 11.5-14.5 PLT (test code = PLT) 188 10\\S\\3/uL 130-400 MPV (test code = MPV) 11.2 fL 9.4-12.4 NEUTROP # (test code = NE#) 12.7 10\\S\\3/uL 1.6-8.0 H LYMPH # (test code = LY#) 2.4 10\\S\\3/uL 1.1-3.5 MONOCYTE # (test code = MO#) 1.7 10\\S\\3/uL 0.0-1.1 H EOSINOPH # (test code = EO#) 0.1 10\\S\\3/uL 0.0-0.7 BASOPHIL # (test code = BA#) 0.1 10\\S\\3/uL 0.0-0.3 IG # (test code = IG#) 0.11 10\\S\\3/uL 0.00-0.06 H NRBC # (test code = NRBC#) 0.00 10\\S\\3/uL 0.00-0.01 NEUTROPH % (test code = NE%) [...] NO NO RBC MORPH (test code = WRBCMOR) NORMAL LIVER PROFILE WW2021-04-12 02:33:00* Test Item Value Reference Range Interpretation Comme nts BILI TOTAL (test code = 11A) 1.0 mg/dL 0.2-1.0 BILI DIRCT (test code = 12A) 0.3 mg/dL 0.0-0.3 BILI INDIR (test code = BILII) 0.7 mg/dL See_Comment [Automated messa ge] The system which generated this result transmitted reference range: <=0.8. The reference range was not used to interpret this result as normal/abnormal. PROTEIN (test code = 07D) 6.0 g/dL 5.7-8.2 ALBUMIN (test code = 08D) 3.4 g/dL 3.2-4.8 GLOBULIN (test code = GLB) 2.6 g/dL 1.5-3.8 ALB/GLOB (test code = AGRR) 1.3 1.0-2.6 ALK PHOS (test code = 35A) 91 IU/L 46-116 AST (test code = 30A) 58 IU/L See_Comment H [A utomated message] The system which generated this result transmitted reference range: <=33. The reference range was not used to interpret this result as normal/abnormal. ALT (test code = 31A) 56 IU/L 10-49 H RUBELLA AB IGG 2021-04-12 02:33:00* Test Item Value Reference Range Interpretation Comme nts RUB AB IGG INTERP (test code = RBABINT) IMMUNE NON-IMMUNE A BASIC METABOLIC PANEL 2021-04-12 02:26:00* Test Item Value Reference Range Interpretation Comme nts GLUCOSE (test code = 06D) 99 mg/dL 75-100 SODIUM (test code = 01A) 139 mmol/L 136-145 POTASSIUM (test code = 01B) 3.3 mmol/L 3.6-5.1 L CHLORIDE (test code = 04A) 108 mmol/L 98-107 H CO2 (test code = 02A) 22 mmol/L 20-31 ANION GAP (test code = ANG) 12.3 mmol/L BUN (test code = 05D) 5 mg/dL 9-23 L CREATININE (test code = 03E) 0.7 mg/dL 0.6-1.0 GFR (test code = GFR) 114 mL/min/1.73m\\S\\2 See_Comment [Automated message] The system which generated this result transmitted reference range: >=90. The reference range was not used to interpret this result as normal/abnormal. GFR (test code = GFRAA) 133 mL/min/1.73m\\S\\2 See_Comment [Automated message] The system which generated this result transmitted reference range: >=90. The reference range was not used to interpret this result as normal/abnormal. EGFR (test code = EGFR) eGFR BY CKD-EPI CALCULATION IS NOT RECOMMENDED FOR PATIENTS UNDER 18 YEARS OF AGE. BUN/CREA (test code = BCR) 7 12-20 L CALCIUM (test code = 09D) 9.3 mg/dL 8.3-10.6 URIC ACID *WW*2021-04-12 02:23:00* Test Item Value Reference Range Interpretation Comme nts URIC ACID (test code = 41A) 6.0 mg/dL 3.1-7.8 LDH-LACTIC DEHYDROGENASE WW2021-04-12 02:23:00* Test Item Value Reference Range Interpretation Comme nts LDH (test code = 33A) 295 IU/L 100-190 H MAGNESIUM WW2021-04-12 02:23:00* Test Item Value Reference Range Interpretation Comme nts MAGNESIUM (test code = 48A) 3.5 mg/dL 1.6-2.6 H FIBRINOGEN QUANTITATIVE *WW*2021-04-12 02:21:00* Test Item Value Reference Range Interpretation Comme nts FIBRINOGEN (test code = FIB) 509 mg/dL 260-480 H PRO TIME AND PTT *WW*2021-04-12 02:21:00* Test Item Value Reference Range Interpretation Comme nts PT (test code = TT) 11.2 s 9.8-13.6 INR (test code = INR) 1.0 INRH (test code = INRH) SUGGESTED THERAPEUTIC RANGE FOR INR: 2.5 - 3.5 For Patients with Prosthetic Valves or Patients with recurrent Thromboembolic Events 2.0 - 3.0 For Most Other Applications PTT (test code = PTT) 27.6 s 20.2-38.0 PTTH (test code = PTTH) To monitor the effectiveness of heparin, we offer the Anti-Xa (Heparin Assay). It can be used for either unfractionated or LMW Heparin. Order Code is ANTI-XA CBC (INCLUDES AUTOMATED DIFFERENTIAL)*[id number] 01:42:00* Test Item Value Reference Range Interpretation Comme nts WBC (test code = WBC) 17.1 10\\S\\3/uL 4.5-11.0 H RBC (test code = RBC) 3.75 10\\S\\6/uL 4.30-5.70 L HGB (test code = HBG) 11.0 g/dL 12.0-15.5 L HCT (test code = HCT) 32.8 % 35.0-44.0 L MCV (test code = MCV) 87.5 fL 81.0-99.0 MCH (test code = MCH) 29.3 pg 27.0-31.0 MCHC (test code = MCHC) 33.5 g/dL 32.0-36.0 RDW (test code = RDW) 12.5 % 11.5-14.5 PLT (test code = PLT) 200 10\\S\\3/uL 130-400 MPV (test code = MPV) 11.0 fL 9.4-12.4 NEUTROP # (test code = NE#) 13.5 10\\S\\3/uL 1.6-8.0 H LYMPH # (test code = LY#) 1.7 10\\S\\3/uL 1.1-3.5 MONOCYTE # (test code = MO#) 1.6 10\\S\\3/uL 0.0-1.1 H EOSINOPH # (test code = EO#) 0.1 10\\S\\3/uL 0.0-0.7 BASOPHIL # (test code = BA#) 0.0 10\\S\\3/uL 0.0-0.3 IG # (test code = IG#) 0.16 10\\S\\3/uL 0.00-0.06 H NRBC # (test code = NRBC#) 0.02 10\\S\\3/uL 0.00-0.01 H NEUTROPH % (test code = [...] NO NO RBC MORPH (test code = WRBCMOR) NORMAL HIV *WW*2021-04-10 14:57:00* Test Item Value Reference Range Interpretation Comme nts HIV-1,2 and p24 (test code = CHIV) NON-REACTIVE NON-REACTIVE SYPHILIS SCREENING WW2021-04-10 14:42:00* Test Item Value Reference Range Interpretation Comme nts T PALLIDUM AB (test code = SYPHINT) NON-REACTIVE NON-REACTIVE SYPHC (test code = SYPHC) RPR test has been updated to Treponemal Immunoassay. Interpretation of results is similar FIBRINOGEN QUANTITATIVE *WW*2021-04-10 14:33:00* Test Item Value Reference Range Interpretation Comme nts FIBRINOGEN (test code = FIB) 518 mg/dL 260-480 H HEPATITIS B SURFACE ANTIGEN 2021-04-10 14:28:00* Test Item Value Reference Range Interpretation Comme nts HBSAG (test code = WHBSAG) NON-REACTIVE NON-REACTIVE BASIC METABOLIC PANEL 2021-04-10 14:11:00* Test Item Value Reference Range Interpretation Comme nts GLUCOSE (test code = 06D) 102 mg/dL 75-100 H SODIUM (test code = 01A) 138 mmol/L 136-145 POTASSIUM (test code = 01B) 4.1 mmol/L 3.6-5.1 CHLORIDE (test code = 04A) 106 mmol/L 98-107 CO2 (test code = 02A) 26 mmol/L 20-31 ANION GAP (test code = ANG) 10.1 mmol/L BUN (test code = 05D) <5 mg/dL 9-23 L CREATININE (test code = 03E) 0.7 mg/dL 0.6-1.0 GFR (test code = GFR) 114 mL/min/1.73m\\S\\2 See_Comment [Automated message] The system which generated this result transmitted reference range: >=90. The reference range was not used to interpret this result as normal/abnormal. GFR (test code = GFRAA) 133 mL/min/1.73m\\S\\2 See_Comment [Automated message] The system which generated this result transmitted reference range: >=90. The reference range was not used to interpret this result as normal/abnormal. EGFR (test code = EGFR) eGFR BY CKD-EPI CALCULATION IS NOT RECOMMENDED FOR PATIENTS UNDER 18 YEARS OF AGE. BUN/CREA (test code = BCR) 7 12-20 L CALCIUM (test code = 09D) 9.4 mg/dL 8.3-10.6 URINALYSIS WITH MICRO *WW*2021-04-10 14:09:00* Test Item Value Reference Range Interpretation Comme nts COLOR (test code = COLU) YELLOW YELLOW CLARITY (test code = CLA) SLT HAZY CLEAR A GLUCOSE UR (test code = UA GLUCOSE) NEGATIVE NEGATIVE BILI UR (test code = BILE) NEGATIVE NEGATIVE KETONES UR (test code = CAPO) NEGATIVE NEGATIVE SP GRAVITY (test code = SPGR) 1.020 1.005-1.030 PH UR (test code = PH) 6.5 4.5-8.0 PROTEIN UR (test code = PU) 1+ NEGATIVE A UROBIL UR (test code = UROQ) 0.2 EU/dL 0.2-1.0 NITRITE UR (test code = NITRITE) NEGATIVE NEGATIVE BLOOD UR (test code = UA BLOOD) NEGATIVE NEGATIVE LEUK ES UR (test code = LEUK) NEGATIVE NEGATIVE WBC UR (test code = UWBC) 3 /HPF 0-5 RBC UR (test code = URBC) 0 /HPF 0-2 EPITH UR (test code = UEPC) FEW /LPF FEW BACTERIA UR (test code = UBACT) FEW /HPF NONE A CAST UR (test code = CAST) /LPF NONE CRYSTAL UR (test code = CRYU) CALCIUM OXALATE FEW / LPF NONE A MUCUS UR (test code = MUC) / HPF NONE AMORPH UR (test code = PASTOR) / HPF NONE TRICH UR (test code = UTRICH) /HPF NONE YEAST UR (test code = UY) /HPF NONE SPERM UR (test code = USPERM) /HPF NONE SARS-CoV (RAPID ANTIGEN) WW2021-04-10 14:06:00* Test Item Value Reference Range Interpretation Comme nts SARS-CoV (ANTIGEN) (test code = COVAG) NEGATIVE NEGATIVE COVID AG (test code = COVAGC) This test has been marketed under the FDA Emergency Use Authorization (EUA) to meet challenges of the COVID-19 pandemic. The validation standards normally enforced by the FDA and the [employer] ([employer]) are more stringent than those required for this test. Therefore, the result should be interpreted with caution and close attention to other clinical and epidemiological data CBC (INCLUDES AUTOMATED DIFFERENTIAL)*[id number] 13:54:00* Test Item Value Reference Range Interpretation Comme nts WBC (test code = WBC) 8.8 10\\S\\3/uL 4.5-11.0 RBC (test code = RBC) 3.51 10\\S\\6/uL 4.30-5.70 L HGB (test code = HBG) 10.3 g/dL 12.0-15.5 L HCT (test code = HCT) 30.7 % 35.0-44.0 L MCV (test code = MCV) 87.5 fL 81.0-99.0 MCH (test code = MCH) 29.3 pg 27.0-31.0 MCHC (test code = MCHC) 33.6 g/dL 32.0-36.0 RDW (test code = RDW) 12.4 % 11.5-14.5 PLT (test code = PLT) 202 10\\S\\3/uL 130-400 MPV (test code = MPV) 10.7 fL 9.4-12.4 NEUTROP # (test code = NE#) 6.0 10\\S\\3/uL 1.6-8.0 LYMPH # (test code = LY#) 1.6 10\\S\\3/uL 1.1-3.5 MONOCYTE # (test code = MO#) 1.0 10\\S\\3/uL 0.0-1.1 EOSINOPH # (test code = EO#) 0.2 10\\S\\3/uL 0.0-0.7 BASOPHIL # (test code = BA#) 0.0 10\\S\\3/uL 0.0-0.3 IG # (test code = IG#) 0.04 10\\S\\3/uL 0.00-0.06 NRBC # (test code = NRBC#) 0.00 10\\S\\3/uL 0.00-0.01 NEUTROPH % (test code = NE%) [...] NO NO RBC MORPH (test code = WRBCMOR) NORMAL U/S >14 WEEKS*WW*2021-04-10 13:32:39 [facility] 1990 Sex: F ADDENDUM #1 Addendum: Findings were discussed by phone with Dr. Woo, the on- call physician, at 1:32 PM on 04/10/2021.Electronically signed by: Luis Alberto Majano MD 04/10/2021 1:32 PM [facility] /S >14 WEEKS*WW* 2021-01-15 11:01:07 [facility] : 1990 Sex: FExam: Obstetrical ultrasound.CLINICAL HISTORY: High risk .LOCATION: D4.FINDINGS: Real- time grayscale sonographic evaluation is performed including Doppler evaluation. No comparison studies. The cervix measures 3.7 cm in length. The fetus is in variable presentation during this exam. There is ananterior/fundal grade 1 placenta without evidence of placenta previa. No abnormalities noted of theintracranial contents or of the spine. The stomach, kidneys, and bladder are identified. There is athree-vessel umbilical cord with no abnormalities noted at the cord insertion site. There is a four-chamber heart with heart rate of 143 bpm. Amniotic fluid index is 10.4 cm. BPD: 4.5 cm, 19 weeks 4 days HC: 16.1 cm, 18 weeks 6 days AC: 14.6 cm, 19 weeks 6 days FL: 2.8 cm, 18 weeks 4 days Biometric ratios are within normal limits. Estimated weight is 283 grams. This corresponds to [id number] percentile based on ultrasound age. The maternal adnexa are not visualized due to gestational age.IMPRESSION:1. There is a single viable intrauterine gestation currently in variable presentation. Ultrasound estimated gestational age is 19 weeks 5 days . 2. weight is at the 27th percentile based on ultrasound.Electronically signed by: Everette Back MD 01/15/2021 11:01 AM ECONOMICS PROFESSOR [id number] 08:10:00* Test Item Value Reference Range Interpretation Comme nts Culture Observations (test code = COB1) NO GROWTH (<1,000 CFU/ML) MAGNESIUM WW2018-04-09 02:53:00* Test Item Value Reference Range Interpretation Comme nts MAGNESIUM (test code = 48A) 3.2 mg/dL 1.8-2.4 H FIBRINOGEN QUANTITATIVE *WW*2018-04-08 22:11:00* Test Item Value Reference Range Interpretation Comme nts FIBRINOGEN (test code = FIB) 422 mg/dL 260-480 LIVER PROFILE WW2018-04-08 21:40:00* Test Item Value Reference Range Interpretation Comme nts BILI TOTAL (test code = 11A) 0.4 [...] 63 IU/L <=78 PRO TIME AND PTT 2018-04-08 21:37:00* Test Item Value Reference Range Interpretation Comme nts PT (test code = TT) 10.7 s 9.8-13.6 INR (test code = INR) 0.9 INRH (test code = INRH) SUGGESTED THERAPEUTIC RANGE FOR INR: 2.5 - 3.5 For Patients with Prosthetic Valves or Patients with recurrent Thromboembolic Events 2.0 - 3.0 For Most Other Applications PTT (test code = PTT) 25.5 s 20.2-38.0 PTTH (test code = PTTH) To monitor the effectiveness of heparin, we offer the Anti-Xa (Heparin Assay). It can be used for either unfractionated or LMW Heparin. Order Code is ANTI-XA BASIC METABOLIC PANEL *WW*2018-04-08 21:34:00* Test Item Value Reference Range Interpretation Comme nts GLUCOSE (test code = 06D) 78 mg/dL [...] mg/dL 8.3-9.5 L URINALYSIS WITH MICRO 2018-04-08 21:30:00* Test Item Value Reference Range Interpretation Comme nts COLOR (test code = COLU) DK YELLOW [...] = USPERM) /HPF NONE CBC (INCLUDES AUTOMATED DIFFERENTIAL)*[id number] 21:22:00* Test Item Value Reference Range Interpretation Comme nts WBC (test code = WBC) 8.0 10\\S\\3/uL 4.5-11.0 RBC (test code = RBC) 3.12 10\\S\\6/uL 4.30-5.70 L HGB (test code = HBG) 9.4 g/dL 12.0-15.5 L HCT (test code = HCT) 27.6 % 35.0-44.0 L MCV (test code = MCV) 88.5 fL 81.0-99.0 MCH (test code = MCH) 30.1 pg 27.0-31.0 MCHC (test code = MCHC) 34.1 g/dL 32.0-36.0 RDW (test code = RDW) 13.0 % 11.5-14.5 PLT (test code = PLT) 229 10\\S\\3/uL 130-400 MPV (test code = MPV) 10.0 fL 9.4-12.4 NEUTROP # (test code = NE#) 4.8 10\\S\\3/uL 1.6-8.0 LYMPH # (test code = LY#) 2.1 10\\S\\3/uL 1.1-3.5 MONOCYTE # (test code = MO#) 0.8 10\\S\\3/uL 0.0-1.1 EOSINOPH # (test code = EO#) 0.3 10\\S\\3/uL 0.0-0.7 BASOPHIL # (test code = BA#) 0.0 10\\S\\3/uL 0.0-0.3 IG # (test code = IG#) 0.03 10\\S\\3/uL 0.00-0.06 NRBC # (test code = NRBC#) 0.00 10\\S\\3/uL 0.00-0.01 NEUTROPH % (test code = NE%) [...] NO NO RBC MORPH (test code = WRBCMOR) NORMAL CBC (INCLUDES AUTOMATED DIFFERENTIAL)*[id number] 07:13:00* Test Item Value Reference Range Interpretation Comme nts WBC (test code = WBC) 10.8 10\\S\\3/uL 4.5-11.0 RBC (test code = RBC) 3.20 10\\S\\6/uL 4.30-5.70 L HGB (test code = HBG) 9.6 g/dL 12.0-15.5 L HCT (test code = HCT) 27.8 % 35.0-44.0 L MCV (test code = MCV) 86.9 fL 81.0-99.0 MCH (test code = MCH) 30.0 pg 27.0-31.0 MCHC (test code = MCHC) 34.5 g/dL 32.0-36.0 RDW (test code = RDW) 12.7 % 11.5-14.5 PLT (test code = PLT) 183 10\\S\\3/uL 130-400 MPV (test code = MPV) 10.9 fL 9.4-12.4 NEUTROP # (test code = NE#) 8.0 10\\S\\3/uL 1.6-8.0 LYMPH # (test code = LY#) 1.7 10\\S\\3/uL 1.1-3.5 MONOCYTE # (test code = MO#) 1.0 10\\S\\3/uL 0.0-1.1 EOSINOPH # (test code = EO#) 0.1 10\\S\\3/uL 0.0-0.7 BASOPHIL # (test code = BA#) 0.0 10\\S\\3/uL 0.0-0.3 IG # (test code = IG#) 0.05 10\\S\\3/uL 0.00-0.06 NRBC # (test code = NRBC#) 0.00 10\\S\\3/uL 0.00-0.01 NEUTROPH % (test code = NE%) [...] NO NO RBC MORPH (test code = WRBCMOR) NORMAL DRUGS OF ABUSE *WW*2018-04-04 14:57:00* Test Item Value Reference Range Interpretation Comme nts DRUG SCRN (test code = HDOA) URINE DRUG SCREEN This is an unconfirmed screening result and should not be used for non-medical purposes CANNABINOD (test code = 88C) Negative NEGATIVE AMPHETAMINE (test code = 84A) Negative NEGATIVE BENZODIAZP (test code = 86A) Negative NEGATIVE BARBITURAT (test code = 85A) POSITIVE NEGATIVE A OPIATES (test code = 92B) Negative NEGATIVE COCAINE (test code = 87A) Negative NEGATIVE PHENCYCLID (test code = 66A) Negative NEGATIVE METHADONE (test code = 64A) Negative NEGATIVE DOAH (test code = DOAH.) URINE DRUG SCREEN Cut-off values are as follows: Cannabinoids 50 ng/mL Cocaine 300 ng/mL Amphetamines 1000 ng/mL Phencyclidine 25 ng/mL Benzodiazepines 200 ng.mL Methadone 300 ng/mL Barbiturates 200 ng/mL Opiates 2000 ng/mL RUBELLA AB IGG WW2018-04-04 11:42:00* Test Item Value Reference Range Interpretation Comme nts RUB AB IGG INTERP (test code = RBABINT) IMMUNE NON-IMMUNE A HIV *WW*2018-04-04 08:46:00* Test Item Value Reference Range Interpretation Comme nts HIV-1,2 and p24 (test code = CHIV) NON-REACTIVE NON-REACTIVE HEPATITIS B SURFACE ANTIGEN *WW*2018-04-04 08:18:00* Test Item Value Reference Range Interpretation Comme nts HBSAG (test code = HBSAG) NON-REACTIVE NON-REACTIVE SYPHILIS SCREENING WW2018-04-04 08:18:00* Test Item Value Reference Range Interpretation Comme nts T PALLIDUM AB (test code = SYPHINT) NON-REACTIVE NON-REACTIVE SYPHC (test code = SYPHC) RPR test has been updated to Treponemal Immunoassay. Interpretation of results is similar LIVER PROFILE WW2018-04-04 02:48:00* Test Item Value Reference Range Interpretation Comme nts BILI TOTAL (test code = 11A) 0.6 [...] 31A) 14 IU/L <=78 FIBRINOGEN QUANTITATIVE *WW*2018-04-04 02:32:00* Test Item Value Reference Range Interpretation Comme nts FIBRINOGEN (test code = FIB) 493 mg/dL 260-480 H BASIC METABOLIC PANEL 2018-04-04 02:17:00* Test Item Value Reference Range Interpretation Comme nts GLUCOSE (test code = 06D) 74 mg/dL [...] mg/dL 8.3-9.5 PRO TIME AND PTT 2018-04-04 02:14:00* Test Item Value Reference Range Interpretation Comme nts PT (test code = TT) 11.2 s 9.8-13.6 INR (test code = INR) 1.0 INRH (test code = INRH) SUGGESTED THERAPEUTIC RANGE FOR INR: 2.5 - 3.5 For Patients with Prosthetic Valves or Patients with recurrent Thromboembolic Events 2.0 - 3.0 For Most Other Applications PTT (test code = PTT) 26.4 s 20.2-38.0 PTTH (test code = PTTH) To monitor the effectiveness of heparin, we offer the Anti-Xa (Heparin Assay). It can be used for either unfractionated or LMW Heparin. Order Code is ANTI-XA CBC (INCLUDES AUTOMATED DIFFERENTIAL)*[id number] 01:48:00* Test Item Value Reference Range Interpretation Comme nts WBC (test code = WBC) 12.6 10\\S\\3/uL 4.5-11.0 H RBC (test code = RBC) 3.78 10\\S\\6/uL 4.30-5.70 L HGB (test code = HBG) 11.4 g/dL 12.0-15.5 L HCT (test code = HCT) 33.0 % 35.0-44.0 L MCV (test code = MCV) 87.3 fL 81.0-99.0 MCH (test code = MCH) 30.2 pg 27.0-31.0 MCHC (test code = MCHC) 34.5 g/dL 32.0-36.0 RDW (test code = RDW) 12.6 % 11.5-14.5 PLT (test code = PLT) 208 10\\S\\3/uL 130-400 MPV (test code = MPV) 10.7 fL 9.4-12.4 NEUTROP # (test code = NE#) 9.5 10\\S\\3/uL 1.6-8.0 H LYMPH # (test code = LY#) 2.1 10\\S\\3/uL 1.1-3.5 MONOCYTE # (test code = MO#) 0.8 10\\S\\3/uL 0.0-1.1 EOSINOPH # (test code = EO#) 0.1 10\\S\\3/uL 0.0-0.7 BASOPHIL # (test code = BA#) 0.0 10\\S\\3/uL 0.0-0.3 IG # (test code = IG#) 0.05 10\\S\\3/uL 0.00-0.06 NRBC # (test code = NRBC#) 0.00 10\\S\\3/uL 0.00-0.01 NEUTROPH % (test code = NE%) [...] NO NO RBC MORPH (test code = WRBCMOR) NORMAL URINALYSIS WITH MICRO 2018-04-03 23:52:00* Test Item Value Reference Range Interpretation Comme nts COLOR (test code = COLU) YELLOW YELLOW [...] NONE U/S BIO-PHYSICAL PROFILE2018-04-03 10:03:32Location of dictation: [id number] PROFILE: CLINICAL INDICATION: [id number]: Hypertensive disorderTE CHNIQUE: Dynamic scanning of the gravid uterus was performed.FINDINGS: There is a single living in cephalic presentation. Cardiacactivity was documented at 150 beats per minute and regular.The cervix isclosed measuring 3.9 cm. The placenta is anterior with no evidence for previa.Grade 2 changes are noted. Amniotic fluid index measures 10.7 cm with thesingle deepest pocket measuring 2.8cm.Biophysical profile was performed: breathing movements: 2.Gross body movement: 2. tone: 2.Qualitative amniotic fluid volume: 2.Total score is 8.SD ratio 2.3, normalIMPRESSION:1. Single viable in cephalic presentation.2. Biophysical profile score excluding nonstress test of 8 of 8.U/S BIO-PHYSICAL PROFILE*WW*2018-03-27 10:12:02BIOPHYSICAL PROFILE: Location Code: [id number] INDICATION: Hypertensive disorderTECHNIQUE: Dynamic s edmond of the gravid uterus was performed.FINDINGS: There is a single viable in vertex presentation. Cardiacactivity was documented at 142 beats per minute and regular. The cervix isclosedmeasuring 3.4 cm. Amniotic fluid index measures 14.2 cm with the singledeepest pocket measuring 4.3cm. Umbilical S/D ratio measures 2.3.Biophysical profile was performed: breathing movements: 2Gross body movement: 2Fetal tone: 2Qualitative amniotic fluid volume: 2Total score is 8/8IMPRESSION:1. Single viable in vertex presentation.2. Biophysical profile score excluding nonstress test of 8 of 8. URINE [id number] 09:30:00* Test Item Value Reference Range Interpretation Comme nts Culture Observations (test code = COB1) THREE OR MORE SPECIES OF BACTERIA ISOLATED. PROBABLE CONTAMINATION. Culture Observations (test code = COB17) IDENTIFICATION AND SUSCEPTIBILITY NOT INDICATED. RECOLLECTION RECOMMENDED HIV *WW*2018-03-21 20:51:00* Test Item Value Reference Range Interpretation Comme nts HIV-1,2 and p24 (test code = CHIV) NON-REACTIVE NON-REACTIVE SYPHILIS SCREENING WW2018-03-21 20:25:00* Test Item Value Reference Range Interpretation Comme nts T PALLIDUM AB (test code = SYPHINT) NON-REACTIVE NON-REACTIVE SYPHC (test code = SYPHC) RPR test has been updated to Treponemal Immunoassay. Interpretation of results is similar HEPATITIS B SURFACE ANTIGEN *WW*2018-03-21 20:24:00* Test Item Value Reference Range Interpretation Comme nts HBSAG (test code = HBSAG) NON-REACTIVE NON-REACTIVE PRO TIME AND PTT *WW*2018-03-21 13:00:00* Test Item Value Reference Range Interpretation Comme nts PT (test code = TT) 11.1 s 9.8-13.6 INR (test code = INR) 1.0 INRH (test code = INRH) SUGGESTED THERAPEUTIC RANGE FOR INR: 2.5 - 3.5 For Patients with Prosthetic Valves or Patients with recurrent Thromboembolic Events 2.0 - 3.0 For Most Other Applications PTT (test code = PTT) 26.4 s 20.2-38.0 PTTH (test code = PTTH) To monitor the effectiveness of heparin, we offer the Anti-Xa (Heparin Assay). It can be used for either unfractionated or LMW Heparin. Order Code is ANTI-XA FIBRINOGEN QUANTITATIVE 2018-03-21 13:00:00* Test Item Value Reference Range Interpretation Comme [facility] FIBRINOGEN (test code = FIB) 552 mg/dL 260-480 H LDH-LACTIC DEHYDROGENASE WW2018-03-21 12:18:00* Test Item Value Reference Range Interpretation Comme nts LDH (test code = 33A) 152 IU/L 100-190 LIVER PROFILE 2018-03-21 12:17:00* Test Item Value Reference Range Interpretation Comme nts BILI TOTAL (test code = 11A) 0.4 [...] = 31A) 14 IU/L <=78 URIC ACID 2018-03-21 12:12:00* Test Item Value Reference Range Interpretation Comme nts URIC ACID (test code = 41A) 5.4 mg/dL 2.6-6.0 COMPREHENSIVE METABOLIC BRAGG *WW*2018-03-21 12:12:00* Test Item Value Reference Range Interpretation Comme nts GLUCOSE (test code = 06D) 80 mg/dL [...] 14 IU/L <=78 URINALYSIS WITH MICRO *WW*2018-03-21 12:03:00* Test Item Value Reference Range Interpretation Comme nts COLOR (test code = COLU) YELLOW YELLOW [...] = USPERM) /HPF NONE CBC (INCLUDES AUTOMATED DIFFERENTIAL)*[id number] 11:55:00* Test Item Value Reference Range Interpretation Comme nts WBC (test code = WBC) 9.3 10\\S\\3/uL 4.5-11.0 RBC (test code = RBC) 3.78 10\\S\\6/uL 4.30-5.70 L HGB (test code = HBG) 11.3 g/dL 12.0-15.5 L HCT (test code = HCT) 32.2 % 35.0-44.0 L MCV (test code = MCV) 85.2 fL 81.0-99.0 MCH (test code = MCH) 29.9 pg 27.0-31.0 MCHC (test code = MCHC) 35.1 g/dL 32.0-36.0 RDW (test code = RDW) 12.4 % 11.5-14.5 PLT (test code = PLT) 218 10\\S\\3/uL 130-400 MPV (test code = MPV) 10.6 fL 9.4-12.4 NEUTROP # (test code = NE#) 6.5 10\\S\\3/uL 1.6-8.0 LYMPH # (test code = LY#) 1.8 10\\S\\3/uL 1.1-3.5 MONOCYTE # (test code = MO#) 0.9 10\\S\\3/uL 0.0-1.1 EOSINOPH # (test code = EO#) 0.1 10\\S\\3/uL 0.0-0.7 BASOPHIL # (test code = BA#) 0.0 10\\S\\3/uL 0.0-0.3 IG # (test code = IG#) 0.04 10\\S\\3/uL 0.00-0.06 NRBC # (test code = NRBC#) 0.00 10\\S\\3/uL 0.00-0.01 NEUTROPH % (test code = NE%) [...] NO NO RBC MORPH (test code = WRBCMOR) NORMAL U/S BIO-PHYSICAL PROFILE2018-03-20 10:12:17Exam: Biophysical profileHISTORY: Hypertensive [...] is 2.30The biophysical profile is as follows: breathing movements-2.Gross body movement-2. tone-2.Qualitative amniotic fluid volume-2.IMPRESSION:1. Single, viable intrauterine with a biophysical profile score of8/8.U/S BIO-PHYSICAL PROFILE2018-03-13 10:26:33 EXAMINATION: U/S BIO-PHYSICAL PROFILE*WW*.LOCATION: S17.HISTORY: Hypertensive disorder.COMPARISON: Biophysical ultrasound 03/06/18.TECHNIQUE: Transverse and longitudinal real time images of the abdomen wereobtained for biophysical profile score.FINDINGS: Observation for at least 20 minutes demonstrates: breathin muscle tone: 2Acute motion and: 2Amniotic fluid volume: 2Total biophysical profile score of 8/8.A single intrauterine with the fetus vertex in position isseen. Theheart rate is approximately 149 beats per minute. Amniotic fluid index isapproximately 18.09 cm, with the deepest vertical pocket of 6.98 cm. The fetalinternal organs were not well visualized, due to the late gestational age.Placenta is located anteriorly. Cervix measures 4.35 cm. S/D ratio of 2.17.IMPRESSION: A total biophysical profile score is 8 out of 8 was obtained. A single, liveintrauterine is vertex in position.U/S BIO-PHYSICAL PROFILE*WW*2018-03-06 10:27:56EXAMINATION: U/S BIO-PHYSICAL PROFILE*WW*.LOCATION: D4.HISTORY: Hypertensive disorder.COMPARISON: Biophysical ultrasound 03/03/2018.TECHNIQUE: Transverse and longitudinal real time images of the abdomen wereobtained for biophysical profile score.FINDINGS: Observation for at least 20 minutes demonstrates: breathin muscle tone: 2Acute motion and: 2Amniotic fluid volume: 2Total biophysical profile score of 8/8.A single intrauterine with the fetus vertex in position isseen. Theheart rate is approximately 154 beats per minute. Amniotic fluid index isapproximately 18.51 cm, with the deepest vertical pocket of 8.93 cm. The fetalinternal organs were not well visualized, due to the late gestational age.Placenta is located anteriorly. Cervix measures 5.67. S/D ratio of 2.11. Theumbilical cord is noted posterior to the neck.IMPRESSION: A total biophysical profile score is 8 out of 8 was obtained. A single, liveintrauterine is vertex in position.Umbilical cord is noted posterior to the neck.U/S BIO- PHYSICAL PROFILE*WW*2018-03-03 08:24:00BIOPHYSICAL PROFILE: Location Code: [id number] INDICATION: Hypertensive disorderTECHNIQUE: Dynamic scanning of the gravid uterus was performed.FINDINGS: There is a single viable in vertex presentation. Cardiacactivity was documented at 140 beats per minute and regular. The cervix isclosedmeasuring 5.9 cm. Amniotic fluid index measures 12.8 cm with the singledeepest pocket measuring 3.7cm. Umbilical S/D ratio measures 2.5.Biophysical profile was performed: breathing movements: 2Gross body movement: 2Fetal tone: 2Qualitative amniotic fluid volume: 2Total score is 8/8IMPRESSION:1. Single viable in vertex presentation.2. Biophysical profile score excluding nonstress test of 8 of 8.U/S BIO-PHYSICAL PROFILE*WW* 2018-02-28 13:57:25Exam: Biophysical profileHISTORY: with hypertensionTECHNIQUE: Transverse and longitudinalsonographic images were obtained.FINDINGS: A single, viable intrauterine is seen in vertex presentation. There is a anteriorly located placenta with no evidence ofplacenta previa. The cervixis closed and measures 3.3 cm in length. The fetalheart is 145 beats per minute. The FRANKY is 21.6 cm. Largest pocket measures 6.2cm.The biophysical profile is as follows: breathing movements-2.Gross body movement-2. tone-2.Qualitative amniotic fluid volume-2.IMPRESSION:1. Single, viable intrauterine with a biophysical profile score of8/8. URINE [id number] 11:59:00* Test Item Value Reference Range Interpretation Comme nts Culture Observations (test code = COB1) THREE OR MORE SPECIES OF BACTERIA ISOLATED. PROBABLE CONTAMINATION. Culture Observations (test code = COB17) IDENTIFICATION AND SUSCEPTIBILITY NOT INDICATED. RECOLLECTION RECOMMENDED CREATININE 24 HR URINE *WW*2017-12-15 15:24:00* Test Item Value Reference Range Interpretation Comme nts TV 24HR (test code = TV) 500 mL CREA 24H C (test code = CREATC) 1.2 g/24hr 1.0-1.9 PROTEIN TOTAL 24 HOURS URIN *WW*2017-12-15 15:07:00* Test Item Value Reference Range Interpretation Comme nts TV 24HR (test code = TV) 500 mL PROT 24H C (test code = UPRC) 80 mg/24hr 50-100 COMPREHENSIVE METABOLIC BRAGG *WW*2017-12-15 12:34:00* Test Item Value Reference Range Interpretation Comme nts GLUCOSE (test code = 06D) 72 mg/dL [...] 31A) 15 IU/L <=78 AMYLASE AND LIPASE 2017-12-15 12:34:00* Test Item Value Reference Range Interpretation Comme nts AMYLASE (test code = 10A) 48 U/L 28-100 LIPASE (test code = 60A) 106 IU/L 73-393 URINALYSIS WITH MICRO 2017-12-15 12:28:00* Test Item Value Reference Range Interpretation Comme nts COLOR (test code = COLU) YELLOW YELLOW [...] = USPERM) /HPF NONE CBC (INCLUDES AUTOMATED DIFFERENTIAL)*[id number] 12:23:00* Test Item Value Reference Range Interpretation Comme nts WBC (test code = WBC) 9.1 10\\S\\3/uL 4.5-11.0 RBC (test code = RBC) 3.64 10\\S\\6/uL 4.30-5.70 L HGB (test code = HBG) 10.9 g/dL 12.0-15.5 L HCT (test code = HCT) 32.0 % 35.0-44.0 L MCV (test code = MCV) 87.9 fL 81.0-99.0 MCH (test code = MCH) 29.9 pg 27.0-31.0 MCHC (test code = MCHC) 34.1 g/dL 32.0-36.0 RDW (test code = RDW) 12.4 % 11.5-14.5 PLT (test code = PLT) 225 10\\S\\3/uL 130-400 MPV (test code = MPV) 9.2 fL 9.4-12.4 L NEUTROP # (test code = NE#) 6.3 10\\S\\3/uL 1.6-8.0 LYMPH # (test code = LY#) 2.0 10\\S\\3/uL 1.1-3.5 MONOCYTE # (test code = MO#) 0.6 10\\S\\3/uL 0.0-1.1 EOSINOPH # (test code = EO#) 0.2 10\\S\\3/uL 0.0-0.7 BASOPHIL # (test code = BA#) 0.0 10\\S\\3/uL 0.0-0.3 IG # (test code = IG#) 0.03 10\\S\\3/uL 0.00-0.06 NRBC # (test code = NRBC#) 0.00 10\\S\\3/uL 0.00-0.01 NEUTROPH % (test code = NE%) [...] NO NO RBC MORPH (test code = WRBCMOR) NORMAL U/S BIO-PHYSICAL PROFILE*WW*2017-12-15 11:53:18OBSTETRIC ULTRASOUND with Biophysical profileLocation code: [id number] HISTORY: well-beingGA by today's US: 21 weeks [...] 21 weeks 6 daysFL 3.9 cm 22 we eks 5 days ratios are within normal limits. weight estimateWeight: 479 gramsWT%: 62% for21 weeks and 5 daysAnatomic survey reveals no abnormality of the intracranial contents,four-chamberheart, stomach, bilateral kidneys, urinary bladder, 3 vessel cord,cord insertion, spine, and extremi ties.BIOPHYSICAL PROFILE: breathinGross body movement: 2Fetal tone: 2Amniotic fluid volume: 2IMPRESSION: 1. Single intrauterine in breech presentation with an approximatesonographic age of 21 weeks and 5 days. 2. Biophysical profile score of 8/8.3. No abnormality identified.U/S >14 WEEKS*WW*2017-12-15 11:53:18OBSTETRIC ULTRASOUND with Biophysical profileLocation code: [id number] HISTORY: well-beingGA by today's US: 21 weeks [...] Biophysical profile score of 8/8.3. No abnormality identified. Notes Date/Time Note Provider Source Referral ID Status Reason Start Date Expiration Date V isits Requested Visits Authorized [id number] Authorized 12/29/2023 06/29/2024 6 [id number] 11:19:35* Tyler Gomez MD - 04/04/2024 10:15 AM ECONOMICS PROFESSOR Images from the original note were not included. CARDIOLOGY Subjective Domonique Hand is a 33 y.o. female with prior medical history of: Hypertension, hyperlipidemia, prior peripartum cardiomyopathy. EF improved with medical therapy to 50-55%. Patient has done well on medical therapy and has not required much to keep her blood pressure down. Presents for: Follow-up for chronic cardiac issues. No changes. Patient denies any chest pain or shortness of breath. No PND, orthopnea, dizziness or syncope. No exertional symptoms. No associated symptoms. Tolerating medical therapy. Patient is trying to exercise and eat right. PVC PAC Target weight loss Will increase labetolol and dc amlodipine Previous studies: 2022 ECHO EF 55-60, mild tr 2024 ECHO EF 55-60 2024 SINUS with PAC and PVCs EKG: Reviewed Review of Systems Constitutional Symptoms: no fever, no sig weight change, no fatigue, no malaise Eyes: no diplopia, no blurred vision, no redness, no discharge, no loss of vision Ears, Nose, Mouth, Throat: no dysphagia, no odynophagia, no otalgia, no rhinorrhea Cardiovascular: no chest pain, no SOB, no orthopnea, no PND, no palpitations Respiratory: same as CVS, no cough, no hemoptysis Gastrointestinal: no NVD, no BPR, no dark stool, no constipation, no abdominal pain Genitourinary: no dysuria, no frequency, no urgency, no nocturia, no incontinence Musculoskeletal: no arthralgia, no myalgia, no stiffness Integumentary: no rash, no hives, no breast pain, no mass, no nipple dc Neurological: no weakness, no headache, no dizziness, no tingling, no numbness Psychiatric: no anxiety, no depression, no insomnia Endocrine: no polyuria, no polydipsia, no fatigue, no weight loss, no weight gain Hematologic/Lymphatic: no bleeding, no bruising, no edema Allergic/Immunologic: no rash, no allergies, no fever, no chills Objective Vitals: 04/04/24 1029 BP: 112/82 Pulse: 83 SpO2: 99% Physical Exam: Physical Examination: Reviewed Vitals General: Well appearing, well nourished in no distress. Neck: Supple without lymphadenopathy. Carotids: no bruits. Veins: No jugular venous distention. Respiratory: CTA bilaterally, no wheezes, rhonchi, rales. Breathing unlabored. Cardiovascular: RRR, no murmur or gallop. Normal S1, S2. No S3, S4. Chest wall: No swelling, ecchymosis, erythema or deformity. Abdomen: Soft, non-tender, non-distended, no organomegaly, no masses. Extremities: No clubbing, cyanosis, or edema. Skin: No dermatitis, ulcers, or xanthomas. Neurologic: A/O x 3. No focal deficits. Assessment & Plan Mixed hyperlipidemia Hypertension, essential Heart valve disease Other orderslabetalol (Normodyne) 200 MG tablet; Take 1 tablet by mouth in the morning and 1 tablet at noon and 1 tablet in the evening. Assessment: as per problem list, and or abnormal CV or vascular issues and symptoms discussed above. Plans: continue med therapy. Will plan for studies/labs as listed. For palps PAC and PVCTarget weight loss Will increase labetolol and dc amlodipine MEDICATIONS TO HOLD FOR TEST/PROCEDURE & WEIGHT (IF APPLICABLE): Add on-+G2211 Time (~30 minutes) or resources spent inherent in engaging the patient in a continuous and active collaborative plan of care related to an identified health condition the management of which requires the direction of a clinician with specialized clinical knowledge, skill, and experience. Patient was given education, expectations and responsibilities, shareddecision- making around therapeutic goals, and shared commitments to achieve those goals. Please call Cardiology regarding further questions and or concerns.Tyler Gomez MD [facility]: [facility] Cardiology [facility] [place] [address] | [address], [address] | [facility] [address] | [facility]2025-02-19 11:19:35 [id number] 11:19:35 Diagnosis Mixed hyperlipidemia - Prima ry Hypertension, essential Unspecified essential hypertension Heart valve disease Endocarditis, valve unspecified, unspecified cause [id number] 11:19:35 [id number] 11:19:35* * Consultation (Routine) - Authorized Specialty Diagnoses / Procedures Referred By Contac t Referred To Contact Cardiology Diagnoses Essential (primary) hypertension Procedures Follow Up In Cardiology Shahnaz Shah NP [address] [place] [address] Phone: tel: fax: Tyler Gomez MD [address] [place] [address] Phone: tel: fax: Referral ID Status Reason Start Date Expiration Date V isits Requested Visits Authorized [id number] Authorized 12/29/2023 06/29/2024 6 6 [id number] 11:19:35* Tyler Gomez MD - 04/04/2024 10:15 AM ECONOMICS PROFESSOR Images from the original note were not included. CARDIOLOGY Subjective Domonique Hand is a 33 y.o. female with prior medical history of: Hypertension, hyperlipidemia, prior peripartum cardiomyopathy. EF improved with medical therapy to 50-55%. Patient has done well on medical therapy and has not required much to keep her blood pressure down. Presents for: Follow-up for chronic cardiac issues. No changes. Patient denies any chest pain or shortness of breath. No PND, orthopnea, dizziness or syncope. No exertional symptoms. No associated symptoms. Tolerating medical therapy. Patient is trying to exercise and eat right. PVC PAC Target weight loss Will increase labetolol and dc amlodipine Previous studies: 2022 ECHO EF 55-60, mild tr 2024 ECHO EF 55-60 2024 SINUS with PAC and PVCs EKG: Reviewed Review of Systems Constitutional Symptoms: no fever, no sig weight change, no fatigue, no malaise Eyes: no diplopia, no blurred vision, no redness, no discharge, no loss of vision Ears, Nose, Mouth, Throat: no dysphagia, no odynophagia, no otalgia, no rhinorrhea Cardiovascular: no chest pain, no SOB, no orthopnea, no PND, no palpitations Respiratory: same as CVS, no cough, no hemoptysis Gastrointestinal: no NVD, no BPR, no dark stool, no constipation, no abdominal pain Genitourinary: no dysuria, no frequency, no urgency, no nocturia, no incontinence Musculoskeletal: no arthralgia, no myalgia, no stiffness Integumentary: no rash, no hives, no breast pain, no mass, no nipple dc Neurological: no weakness, no headache, no dizziness, no tingling, no numbness Psychiatric: no anxiety, no depression, no insomnia Endocrine: no polyuria, no polydipsia, no fatigue, no weight loss, no weight gain Hematologic/Lymphatic: no bleeding, no bruising, no edema Allergic/Immunologic: no rash, no allergies, no fever, no chills Objective Vitals: 04/04/24 1029 BP: 112/82 Pulse: 83 SpO2: 99% Physical Exam: Physical Examination: Reviewed Vitals General: Well appearing, well nourished in no distress. Neck: Supple without lymphadenopathy. Carotids: no bruits. Veins: No jugular venous distention. Respiratory: CTA bilaterally, no wheezes, rhonchi, rales. Breathing unlabored. Cardiovascular: RRR, no murmur or gallop. Normal S1, S2. No S3, S4. Chest wall: No swelling, ecchymosis, erythema or deformity. Abdomen: Soft, non-tender, non-distended, no organomegaly, no masses. Extremities: No clubbing, cyanosis, or edema. Skin: No dermatitis, ulcers, or xanthomas. Neurologic: A/O x 3. No focal deficits. Assessment & Plan Mixed hyperlipidemia Hypertension, essential Heart valve disease Other orderslabetalol (Normodyne) 200 MG tablet; Take 1 tablet by mouth in the morning and 1 tablet at noon and 1 tablet in the evening. Assessment: as per problem list, and or abnormal CV or vascular issues and symptoms discussed above. Plans: continue med therapy. Will plan for studies/labs as listed. For palps PAC and PVCTarget weight loss Will increase labetolol and dc amlodipine MEDICATIONS TO HOLD FOR TEST/PROCEDURE & WEIGHT (IF APPLICABLE): Add on-+G2211 Time (~30 minutes) or resources spent inherent in engaging the patient in a continuous and active collaborative plan of care related to an identified health condition the management of which requires the direction of a clinician with specialized clinical knowledge, skill, and experience. Patient was given education, expectations and responsibilities, shareddecision- making around therapeutic goals, and shared commitments to achieve those goals. Please call Cardiology regarding further questions and or concerns.Tyler Gomez MD [facility]: [facility] Cardiology [facility] [place] [address] | [address], [address] | [place] [address] | OMICS PROFESSOR [id number] 11:19:35 [id number] 11:19:35 Diagnosis Mixed hyperlipidemia - Prima ry Hypertension, essential Unspecified essential hypertension Heart valve disease Endocarditis, valve unspecified, unspecified cause [id number] 11:19:35 [id number] 14:31:13* [id number] 14:31:13Upcoming Encounters Health Maintenance Due Date Last Done Comments Lipid Panel 1990 Varicella Vaccines (1 of 2 - 13+ 2-dose series) 2001 Pap Smear 2009 Cervical Cancer Screening 2018 HPV/Cotest 2018 Influenza Vaccine (#1) 2023 , 02/09/2018, 10/12/2014 DTaP/Tdap/Td Vaccines (9 - Td or Tdap) 02/06/2032 02/05/2022, 02/09/2018, 09/12/2014, Additional history exists HIB Vaccines Completed 06/13/1990 IPV Vaccines Completed 01/01/1993, 09/15, 05/17/1989, Additional history exists Hepatitis B Vaccines Completed 02/17/2000, 05/29/1999, 04/03/1999 HPV Vaccines Aged Out No longer eligi ble based on patient's age to complete this topic Hepatitis A Vaccines Aged Out No long er eligible based on patient's age to complete this topic Meningococcal Vaccine Aged Out No irving jose j eligible based on patient's age to complete this topic Pneumococcal Vaccine: Pediatrics (0 to 5 Years) and At-Risk Patients (6 to 64 Years) Aged Out No longer eligible based on patient's age to complete this topic Rotavirus Vaccines Aged Out No longer eligible based on patient's age to complete this topic [id number] 11:15:57* [facility] [id number] 11:15:57Upcoming Encounters Health Maintenance Due Date Last Done Comments Lipid Panel 1990 Varicella Vaccines (1 of 2 - 13+ 2-dose series) 2001 Pap Smear 2009 Cervical Cancer Screening 2018 HPV/Cotest 2018 Influenza Vaccine (#1) 2023 , 02/09/2018, 10/12/2014 DTaP/Tdap/Td Vaccines (9 - Td or Tdap) 02/06/2032 02/05/2022, 02/09/2018, 09/12/2014, Additional history exists HIB Vaccines Completed 06/13/1990 IPV Vaccines Completed 01/01/1993, 09/15, 05/17/1989, Additional history exists Hepatitis B Vaccines Completed 02/17/2000, 05/29/1999, 04/03/1999 HPV Vaccines Aged Out No longer eligi ble based on patient's age to complete this topic Hepatitis A Vaccines Aged Out No long er eligible based on patient's age to complete this topic Meningococcal Vaccine Aged Out No irving jose j eligible based on patient's age to complete this topic Pneumococcal Vaccine: Pediatrics (0 to 5 Years) and At-Risk Patients (6 to 64 Years) Aged Out No longer eligible based on patient's age to complete this topic Rotavirus Vaccines Aged Out No longer eligible based on patient's age to complete this topic [id number] 10:24:09 Attention: MA/Nurse Pharmacy support is unable to resolve this request because the medication is not listed from a "[facility]" source and requires reconciliation. Please follow your clinic workflow to resolve this request. Requested Prescriptions Pending Prescriptions Disp Refills amLODIPine (Norvasc) 10 MG tablet [Pharmacy Med Name: AMLODIPINE BESYLATE 10MG TABLETS] 90 tablet Sig: TAKE 1 TABLET BY MOUTH EVERY DAY *Additional Information: Pharmacy TechnicianMegarry [id number] 10:18:20* Marcus Troy 2023-09-22 10:18:20 Upcoming Encounters Health Maintenance Due Date Last Done Comments Lipid Panel 1990 Varicella Vaccines (1 of 2 - 13+ 2-dose series) 2001 Pap Smear 2009 Cervical Cancer Screening 2018 HPV/Cotest 2018 Influenza Vaccine (#1) 2023 , 02/09/2018, 10/12/2014 DTaP/Tdap/Td Vaccines (9 - Td or Tdap) 02/06/2032 02/05/2022, 02/09/2018, 09/12/2014, Additional history exists HIB Vaccines Completed 06/13/1990 IPV Vaccines Completed 01/01/1993, 09/15, 05/17/1989, Additional history exists Hepatitis B Vaccines Completed 02/17/2000, 05/29/1999, 04/03/1999 HPV Vaccines Aged Out No longer eligi ble based on patient's age to complete this topic Hepatitis A Vaccines Aged Out No long er eligible based on patient's age to complete this topic Meningococcal Vaccine Aged Out No irving jose j eligible based on patient's age to complete this topic Pneumococcal Vaccine: Pediatrics (0 to 5 Years) and At-Risk Patients (6 to 64 Years) Aged Out No longer eligible based on patient's age to complete this topic Rotavirus Vaccines Aged Out No longer eligible based on patient's age to complete this topic Marcus [id number] 10:18:12 This patient should not be prescribed estrogen. Obstetrics and Gynecology PhysicianMemonayeli Troy
[2024-04-14 16:31] LABS: Absolute Eosinophils 0.2 K/uL (0-0.5); Absolute Lymphocytes (CBC) 2.3 K/uL (0.7-4.9); Absolute Monocytes 0.9 K/uL (0.1-1.3); Absolute Neutrophil 3.4 K/uL (1.8-8.0); Basophils % 0.5 % (0-1.3); Eosinophils % 3.2 % (0-4.4); Hematocrit 39.8 % (36.0-45.0); Hemoglobin 13.7 g/dL (12.0-15.0); Lymphocytes % 33.1 % (15.3-44.8); MCH 29.1 pg (27.0-35.0); MCHC 34.4 g/dL (32.0-36.0); MCV 84.4 fL (80-100); MPV 8.1 fL (7.6-11.3); Monocytes % 12.9 % (3.3-12.3); Neutrophils % 50.3 % (41.7-73.7); Nucleated Red Blood Cells % 0.1 % (0-0); Platelets 310 thou/uL (152-406); RBC Red Blood Cell Count 4.71 M/uL (3.86-4.86)
[2024-04-14 16:32] LABS: Specific Gravity > 1.030 (1.005-1.030)
[2024-04-14 16:35] LABS: Specific Gravity > 1.030 (1.005-1.030); Urine Bacteria None Seen /HPF (<20); Urine Bilirubin NEGATIVE (Negative); Urine Blood Negative (Negative); Urine Clarity Turbid (Clear); Urine Color Yellow (Yellow); Urine Culture Reflex Order NOT NEEDED; Urine Glucose NEGATIVE (Negative); Urine Ketones NEGATIVE (Negative); Urine Micro Reflex YN NO BILL MICROSCOPIC; Urine Mucus Slight /HPF (None Seen); Urine Nitrite NEGATIVE (Negative); Urine Protein 1+ (Negative); Urine Urobilinogen 2+ (Normal); Urine WBC <5 /HPF (<5); Urine WBC Clump Rare /HPF (None Seen); Urine Yeast (Budding) Trace /HPF (None Seen)
[2024-04-14] MEDS ORDERED: ONDANSETRON 4 MG/2 ML VIAL ONE (16:42)
[2024-04-14] MEDS ORDERED: KETOROLAC 30 MG/ML INJ ONE (16:43)
[2024-04-14] MEDS ORDERED: NA CHLORIDE 0.9% 1,000 ML ONE (16:43)
[2024-04-14 16:49] LABS: Albumin 3.9 g/dL (3.4-5.0); Albumin/Globulin Ratio 0.9 (1.1-1.8); Anion Gap 7.4 mEq/L (5.0-15.0); Bilirubin Total 0.9 mg/dL (0.2-1.0); Globulin 4.3 g/dL (2.3-3.5); Potassium 3.4 mEq/L (3.5-5.1); Protein, Total 8.2 g/dL (6.4-8.2)
--- NOTE | 2024-04-14 17:44 | ER ---
Nurse's Notes [facility] Name: Domonique Ramos Age: 33 yrs Sex: Female : 1990 Arrival Date: 04/14/2024 Time: 15:32 Bed 19 Private MD: Diagnosis: Urinary tract infection following delivery, unspecified;Candidiasis, unspecified Presentation: 04/14 15:37 Chief complaint: Patient states: N/V/D that began Tuesday. Coronavirus screen: Client ss denies travel out of the [place] in the last 14 days. Ebola Screen: Patient denies exposure to infectious person. Patient denies travel to an Ebola-affected area in the 21 days before illness onset. Initial Sepsis Screen: Does the patient meet any 2 criteria? No. Patient's initial sepsis screen is negative. Does the patient have a suspected source of infection? No. Patient's initial sepsis screen is negative. Risk Assessment: Do you want to hurt yourself or someone else? Patient reports no desire to harm self or others. Onset of symptoms was April 10, 2024. 15:37 Method Of Arrival: Ambulatory ss 15:37 Acuity: JERI 3 ss Historical: - PMHx: 15:37 Hypertension; Migraines; ss Screenin:21 [facility] ED Fall Risk Assessment (Adult) History of falling in the last 3 months, jb4 including since admission No falls in past 3 months (0 pts) Confusion or Disorientation No (0 pts) Intoxicated or Sedated No (0 pts) Impaired Gait No (0 pts) Mobility Assist Device Used No (0 pt) Altered Elimination No (0 pt) Score/Fall Risk Level 0 - 2 = Low Risk Oriented to surroundings, Maintained a safe environment. Abuse screen: Denies threats or abuse. Nutritional screening: No deficits noted. Tuberculosis screening: No symptoms or risk factors identified. Assessment: 15:40 General: Appears in no apparent distress. comfortable, Behavior is calm, cooperative, jb4 appropriate for age. Pain:. Neuro: Level of Consciousness is awake, alert, obeys commands, Oriented to person, place, time, situation. Cardiovascular: Patient's skin is warm and dry. Respiratory: Airway is patent Respiratory effort is even, unlabored, Respiratory pattern is regular, symmetrical. GI: Abdomen is flat, non-distended. Derm: Skin is intact, Skin is dry, Skin is normal, Skin temperature is warm. 16:58 Reassessment: Patient appears in no apparent distress at this time. Patient and/or jb4 family updated on plan of care and expected duration. Pain level reassessed. Patient is alert, oriented x 3, equal unlabored respirations, skin warm/dry/pink. Vital Signs: 16:15 BP 137 / 82; Pulse 76; Resp 14; Temp 99.7; Pulse Ox 99% on R/A; Weight 94.35 kg; Height jb4 5 ft. 0 in. ; 17:45 BP 127 / 85; Pulse 81; Resp 16; Pulse Ox 100% on R/A; jb4 16:15 Body Mass Index 40.62 (94.35 kg, 152.4 cm) jb4 ED Course: 15:33 Patient arrived in ED. im 15:37 Triage completed. ss 15:37 Arm band placed on left wrist. ss 15:49 Karson Jack FNP-C is [facility]. dr5 15:49 Nikolas Wood MD is Attending Physician. dr5 15:59 Initial lab(s) drawn, by me. Inserted saline lock: 20 gauge in right antecubital area, kb4 using aseptic technique. Blood collected. Flushed with 10 mL NS. 15:59 Urine collected: clean catch specimen. kb4 16:00 Urine collected: clean catch specimen, clear. kb4 16:56 Omar Su, RN is Primary Nurse. jb4 18:21 Patient has correct armband on for positive identification. Placed in gown. Bed in low jb4 position. Call light in reach. Side rails up X 1. Provided Education on: discharge instructions.. 18:21 No provider procedures requiring assistance completed. IV discontinued, intact, jb4 bleeding controlled, No redness/swelling at site. Pressure dressing applied. Administered Medications: 16:47 Drug: NS 0.9% IV 1000 ml IV at 1000 ml once; to be given as a bolus over 60 minutes jb4 Route: IV; Rate: 1000 ml; Site: right antecubital; 17:45 Follow up: IV Status: Completed infusion; IV Intake: 1000ml jb4 16:47 Drug: Ondansetron IVP 4 mg IVP once; over 2 minutes Route: IVP; Site: right antecubital;jb4 18:21 Follow up: Response: No adverse reaction; Marked relief of symptoms jb4 16:47 Drug: Ketorolac IVP 15 mg IVP once Route: IVP; Site: right antecubital; jb4 18:20 Follow up: Response: No adverse reaction; Marked relief of symptoms jb4 18:20 Drug: Potassium Chloride PO 40 mEq PO once Route: PO; jb4 18:20 Follow up: Response: Medication administered at discharge. jb4 Intake: 17:45 IV: 1000ml; Total: 1000ml. jb4 Outcome: 17:44 Discharge ordered by . dr5 17:45 Discharged to home ambulatory, jb4 17:45 Condition: stable 17:45 Discharge instructions given to patient, Instructed on discharge instructions, follow up and referral plans. medication usage, Demonstrated understanding of instructions, follow-up care, medications, Prescriptions given X 3, 18:22 Patient left the ED. jb4 Signatures: Missy Aragon RN RN ss Omar Su RN RN jb4 Lisa Manriquez Dustin, GENETIC SCIENTIST-C GENETIC SCIENTIST-Cdr5 Patti Ga kb4
--- NOTE | 2024-04-14 17:44 | EDPHYS ---
Physician Documentation [facility] Name: Domonique Ramos Age: 33 yrs Sex: Female : 1990 Arrival Date: 04/14/2024 Time: 15:32 Bed 19 Private MD: ED Physician Nikolas Wood HPI: 04/14 17:50 This 33 yrs old Black Female presents to ER via Ambulatory with complaints of dr5 Dizziness, Vomiting. 17:50 Onset: The symptoms/episode began/occurred 3 day(s) ago. Patient is a 33-year-old dr5 female with history of hypertension coming in with complaints of dehydration, nausea, vomiting, diarrhea. Patient reports that her 2 children at home also have similar symptoms. Patient denies fever.. Historical: - PMHx: 15:37 Hypertension; Migraines; ss ROS: 17:50 Constitutional: as per hpi dr5 Exam: 17:50 Constitutional: This is a well developed, well nourished patient who is awake, alert, dr5 and in no acute distress. Head/Face: Normocephalic, atraumatic. Eyes: Pupils equal round and reactive to light, extra-ocular motions intact. Lids and lashes normal. Conjunctiva and sclera are non-icteric and not injected. Cornea within normal limits. Periorbital areas with no swelling, redness, or edema. Chest/axilla: Normal chest wall appearance and motion. Nontender with no deformity. No lesions are appreciated. Cardiovascular: Regular rate and rhythm with a normal S1 and S2. Normal PMI, no JVD. No pulse deficits. Respiratory: Lungs have equal breath sounds bilaterally, clear to auscultation. No rales, rhonchi or wheezes noted. No increased work of breathing, no retractions or nasal flaring. Abdomen/GI: Soft, non-tender, non-distended Skin: Warm, dry with normal turgor. Normal color with no rashes, no lesions, and no evidence of cellulitis. MS/ Extremity: Pulses equal, no cyanosis. Neurovascular intact. Full, normal range of motion. Neuro: Awake and alert, GCS 15, oriented to person, place, time, and situation. Cranial nerves II-XII grossly intact. Motor strength 5/5 in all extremities. Sensory grossly intact. Cerebellar exam normal. Normal gait. Vital Signs: 16:15 BP 137 / 82; Pulse 76; Resp 14; Temp 99.7; Pulse Ox 99% on R/A; Weight 94.35 kg; Height jb4 5 ft. 0 in. ; 17:45 BP 127 / 85; Pulse 81; Resp 16; Pulse Ox 100% on R/A; jb4 16:15 Body Mass Index 40.62 (94.35 kg, 152.4 cm) jb4 MDM: 15:49 Medical Screening Exam initiated dr5 17:50 Differential diagnosis: hypovolemia, , UTI, dehydration. Differential dr5 diagnosis: Gastroenteritis. Data reviewed: vital signs, nurses notes. Care significantly affected by the following chronic conditions: Hypertension. Care significantly affected by the following Social Determinants of Health: Poor access to healthcare and/or lack of insurance, Poor access to transportation, Problems related to employment. Counseling: I had a detailed discussion with the patient and/or guardian regarding the historical points, exam findings, and any diagnostic results supporting the discharge/admit diagnosis, the presence of at least one elevated blood pressure reading (>120/80) during this emergency department visit, lab results, the need for outpatient follow up, for definitive care, a family practitioner, to return to the emergency department if symptoms worsen or persist or if there are any questions or concerns that arise at home. Medication response: Zofran relieved the patient's nausea. NS, Zofran. Response to treatment: the patient's symptoms have resolved after treatment. ED course: Patient is feeling better after normal saline and Zofran. Patient found to have urinary tract infection. Will give antibiotics as well as antifungals for yeast. Zofran sent for nausea. Patient denies any symptoms on discharge and is feeling much better. Follow-up with primary care doctor this week.. 03 16:16 Order name: CBC with Diff; Complete Time: 16:38 dr5 04/14 16:16 Order name: CMP; Complete Time: 16:51 dr5 04/14 16:16 Order name: Urinalysis W/Microscopic; Complete Time: 16:38 dr5 04/14 16:16 Order name: Test, Urine; Complete Time: 16:38 dr5 04/14 16:16 Order name: Lipase; Complete Time: 16:51 dr5 Administered Medications: 16:47 Drug: NS 0.9% IV 1000 ml IV at 1000 ml once; to be given as a bolus over 60 minutes jb4 Route: IV; Rate: 1000 ml; Site: right antecubital; 17:45 Follow up: IV Status: Completed infusion; IV Intake: 1000ml jb4 16:47 Drug: Ondansetron IVP 4 mg IVP once; over 2 minutes Route: IVP; Site: right antecubital;jb4 18:21 Follow up: Response: No adverse reaction; Marked relief of symptoms jb4 16:47 Drug: Ketorolac IVP 15 mg IVP once Route: IVP; Site: right antecubital; jb4 18:20 Follow up: Response: No adverse reaction; Marked relief of symptoms jb4 18:20 Drug: Potassium Chloride PO 40 mEq PO once Route: PO; jb4 18:20 Follow up: Response: Medication administered at discharge. jb4 Disposition Summary: 04/14/24 17:44 Discharge Ordered Notes: Location: Home dr5 Condition: Stable dr5 Diagnosis - Urinary tract infection following delivery, unspecified dr5 - Candidiasis, unspecified dr5 Followup: dr5 - With: Emergency Department - When: As needed - Reason: Worsening of condition Followup: dr5 - With: Private Physician - When: 1 - 2 days - Reason: Recheck today's complaints, Continuance of care, Re-evaluation by your physician Discharge Instructions: - Discharge Summary Sheet dr5 - Urinary Tract Infection, Adult dr5 Forms: - Work release form dr5 - Medication Reconciliation Form dr5 - Antibiotic Education dr5 - Patient Portal Instructions dr5 - Leadership Thank You Letter dr5 Prescriptions: - ondansetron 4 mg Oral Tablet,disintegrating - take 1 tablet ORAL route every 4-6 hours As needed; 20 tablet; Refills: 0, dr5 Product Selection Permitted - Cephalexin 500 mg Oral Capsule - take 1 capsule ORAL route every 12 hours for 10 days; 20 capsule; Refills: 0, dr5 Product Selection Permitted - Fluconazole 150 mg Oral tablet - take 1 tablet ORAL route once daily for 1 dose May repeat in 1 week after dr5 antibiotics are completed.; 2 tablet; Refills: 0, Product Selection Permitted Signatures: Dispatcher [employer] Missy Grayson RN RN Omar Corado RN RN jb4 Karson Jack, M[employer] SENIOR [employer] PROGRAMMER-Cdr5
[2024-04-14] MEDS ORDERED: POTASSIUM CL SA 10 MEQ TAB PO ONE (18:12)
[2024-04-14 18:26] VITALS: TEMP 99.7
[2024-04-14 18:27] VITALS: BP 127/85; O2SAT 100
== END 2024-04-14 18:22 | disposition home or self-care (01) ==
LOC: ER 15:32
DX: N39.0 Urinary tract infection, site not specified (principal); B37.9 Candidiasis, unspecified
CPT/HCPCS: 96361; 85025; 81001; 36415; 81025; 83690; 80053; 96375; 96374; 99284; J2405; J7030